=== PATIENT | male | born 1945 | race Caucasian/White ===

== ENCOUNTER → 2020-03-16 19:30 | Outpatient (ROUT) | payer MEDICARE, SELFPAY ==
[2020-03-16 19:50] LABS: Aspartate Aminotransferase 23 IU/L (17-59); BUN Creatinine Ratio 18.6 (6-22); Blood Urea Nitrogen 19 mg/dL (9-20); Carbon Dioxide 27 mmol/L (22-32); Chloride 106 mmol/L (98-107); Cholesterol 226 mg/dL (140-199); Estimated Glomerular Filt Rate > 60.0 mL/min (>60); Glucose 98 mg/dL (80-110); HDL Cholesterol 58 mg/dL (40-60); HEMOLYSIS < 15 (0-50); LDL Cholesterol Calculated 127 mg/dL (<100); Potassium 4.4 mmol/L (3.4-5.1); Sodium 138 mmol/L (137-145); Triglycerides 206 mg/dL (35-150)
[2020-03-16 20:21] LABS: Prostate Specific Antigen 5.92 ng/mL (0.10-4.00)
== END ==
PROVIDERS: Family Provider Family Medicine; PCP Family Medicine; Visit Provider Internal Medicine
DX: R03.0 Elevated blood-pressure reading, without diagnosis of hypertension (principal); E78.2 Mixed hyperlipidemia; N40.1 Benign prostatic hyperplasia with lower urinary tract symptoms
CPT/HCPCS: 80048; 80061; 84153; 84450

== ENCOUNTER → 2020-06-10 13:04 | Outpatient (CLI) | payer MEDICARE, SELFPAY ==
[2020-06-10] MEDS: COVID-19 VACC #1, MRNA(MOD) 100 MCG/0.5 ML VIAL IM (13:11)
== END ==
PROVIDERS: Visit Provider Internal Medicine
DX: Z23 Encounter for immunization (principal)
CPT/HCPCS: 0011A; 91301

== ENCOUNTER → 2020-06-21 14:46 | Outpatient (ROUT) | payer MEDICARE, SELFPAY ==
[2020-06-22 09:45] LABS: PSA, Total 4.7 ng/mL (0.0-4.0)
== END ==
PROVIDERS: Visit Provider Internal Medicine
DX: R97.20 Elevated prostate specific antigen [PSA] (principal)
CPT/HCPCS: 84153; 84154

== ENCOUNTER → 2020-07-08 13:52 | Outpatient (CLI) | payer MEDICARE, SELFPAY ==
[2020-07-08] MEDS: COVID-19 VACC #2, MRNA(MOD) 100 MCG/0.5 ML VIAL IM (14:11)
== END ==
PROVIDERS: Visit Provider Internal Medicine
DX: Z23 Encounter for immunization (principal)
CPT/HCPCS: 0012A; 91301

== ENCOUNTER → 2021-09-27 16:21 | Outpatient (CLI) | payer MEDICARE, SELFPAY ==
[2021-09-27 17:35] LABS: Hemoglobin 14.5 g/dL (13.5-17.5); Mean Corpuscular HGB Conc 34.4 % (30-36); Mean Corpuscular Hemoglobin 32.7 PG (26-34); Platelet Count 218 X10^3/uL (150-400); Red Blood Cell Count 4.42 X10^6/uL (4.5-5.9); Red Cell Distribution Width 14.1 % (11.6-14.8); White Blood Cell Count 7.3 X10^3/uL (4.5-11.0)
[2021-09-27 17:51] LABS: Alanine Aminotransferase 18 IU/L (<50); Albumin 4.3 g/dL (3.5-5.0); Albumin Globulin Ratio 1.4 (1.0-2.8); Alkaline Phosphatase 92 U/L (38-126); Aspartate Aminotransferase 27 IU/L (17-59); BUN Creatinine Ratio 16.8 (6-22); Bilirubin Total 0.9 mg/dL (0.2-1.3); Blood Urea Nitrogen 21 mg/dL (9-20); Calcium 8.8 mg/dL (8.4-10.2); Carbon Dioxide 24 mmol/L (22-32); Chloride 109 mmol/L (98-107); Cholesterol 241 mg/dL (140-199); Estimated Glomerular Filt Rate 59 mL/min (>60); Globulin 3.1 g/dL (1.7-4.1); Glucose 100 mg/dL (80-110); HDL Cholesterol 68 mg/dL (40-60); HEMOLYSIS 41 (0-50); LDL Cholesterol Calculated 129 mg/dL (<100); Potassium 4.4 mmol/L (3.4-5.1); Sodium 140 mmol/L (137-145); Total Protein 7.4 g/dL (6.3-8.2); Triglycerides 221 mg/dL (35-150)
[2021-09-27 18:21] LABS: Prostate Specific Antigen 5.45 ng/mL (0.10-4.00)
[2021-09-27 20:11] LABS: Free T4, Direct Thyroxine 0.73 ng/dL (0.78-2.19)
== END ==
PROVIDERS: PCP Internal Medicine; Referring Provider Internal Medicine; Visit Provider Internal Medicine
DX: E78.2 Mixed hyperlipidemia (principal); R97.20 Elevated prostate specific antigen [PSA]
CPT/HCPCS: 36415; 80053; 80061; 84153; 84439; 84443; 85027

== ENCOUNTER 2021-12-12 06:11 | Emergency (ER) | payer MEDICARE, SELFPAY ==
[2021-12-12 06:38] VITALS: BP 201/72; PULSE 85; RESP 18; TEMP 36.6; O2SAT 96; BMI 33.0
[2021-12-12 07:23] LABS: Appearance Urine UA CLEAR; Bilirubin Urine UA NEGATIVE (NEGATIVE); Color Urine UA RED; Glucose Urine UA NEGATIVE (Negative); Ketones Urine UA NEGATIVE (NEGATIVE); Leukocyte Esterase Urine UA 1+ (NEGATIVE); Nitrite Urine UA NEGATIVE (Negative); Occult Blood Urine UA 3+ (Negative); Protein Urine UA 2+ (Negative); Specific Gravity Urine UA 1.015 (1.000-1.035); Urobilinogen Urine UA 0.2 E.U./dL (0.2); pH Urine UA 6.5 (4.5-8.0)
[2021-12-12 07:26] LABS: Bacteria Urine None Seen; Culture Indicated Urine Specimen Cultured; RBC Urine >100/HPF (0-5/HPF); Squamous Epithelial Cell Urine None Seen (0-5/HPF); WBC Urine 1-5/HPF (0-5/HPF)
--- NOTE | 2021-12-12 08:06 | ED_ITS ---
HPI - Male Genitourinary General Chief complaint: Urogenital-Male Stated complaint: catheter has lot of blood in it Time Seen by Provider: 12/12/21 07:18 Source: patient Mode of arrival: Ambulatory History of Present Illness HPI Narrative: Is a elba 76-year-old male history of hypertension who presents today with hematuria. He was visiting in [facility] when he developed urinary retention. He had a catheter placed there 2 days ago. He was started on Cipro and Flomax the following day he flew home as scheduled today he noticed his urine was red and he had some blood. He has never had this happen before. He denies any abdominal pain. No nausea vomiting. The catheter seems to be working but he does have hematuria and a few blood clots. No fevers or chills. Related Data Home Medications Medication Instructions Recorded Confirmed latanoprost 0.005 % eye drops 1 drp OU QDAY ##0 05/21/17 (Xalatan) dorzolamide 22.3 mg-timolol 6.8 1 drp EYE-BOTH BID 09/27/21 09/27/21 mg/mL eye drops Previous Rx's Medication Instructions Recorded levothyroxine 25 mcg capsule 25 mcg PO DAILY #90 caps 09/29/21 ciprofloxacin HCl 500 mg tablet 500 mg PO BID #2 tabs 12/12/21 (Cipro) ciprofloxacin HCl 500 mg tablet 500 mg PO BID #2 tabs 12/12/21 (Cipro) tamsulosin 0.4 mg capsule (Flomax) 0.4 mg PO BEDTIME #30 caps 12/12/21 Allergies Allergy/AdvReac Type Severity Reaction Status Date / Time No Known Drug Allergies Allergy Verified 09/27/21 15:37 Review of Systems Review of Systems Narrative: GENERAL: Denies chills,fever HEENT: Denies throat pain RESPIRATORY: Denies dyspnea, cough, wheezing CARDIOVASCULAR: Denies chest pain, palpitations GASTROINTESTINAL: Denies nausea, vomiting : See HPI MUSCULOSKELETAL: Denies extremity pain, injury SKIN: No rash, no laceration, no pruritus NEUROLOGIC: Denies weakness, dizziness, headache, numbness 8 point review of systems is negative except for those stated above and HPI Patient History Medical History Advanced directives, counseling/discussion Cataracts, bilateral Glaucoma Hearing loss High prostate specific antigen (PSA) Hypothyroidism, unspecified Medicare annual wellness visit, initial Mixed hyperlipidemia Obesity (BMI 30.0-34.9) Travel advice encounter Surgical History History of cataract removal with insertion of prosthetic lens (~2018) History of vitrectomy (~2017) Family History Father Stroke Mother History of heart disease Social History Smoking Status: Never smoker Smoking Status: Never smoker alcohol intake frequency: a few times a week Substance Use Type: does not use Exam Initial Vital Signs Initial Vital Signs: Vital Signs Temperature 97.9 F 12/12/21 06:38 Pulse Rate 85 12/12/21 06:38 Respiratory Rate 18 12/12/21 06:38 Blood Pressure 201/72 H 12/12/21 06:38 Pulse Oximetry 96 12/12/21 06:38 Oxygen Delivery Method 12/12/21 06:38 GENERAL: Very pleasant well-appearing 76-year-old male CARDIOVASCULAR: peripheral pulses in tact, cap refill <2 sec RESPIRATORY: No respiratory distress, speaks in full sentences without difficulty ABDOMEN: Soft, nontender, no guarding or rebound : Magdaleno catheter in place mild hematuria a few blood clots noted no gross blood EXTREMITIES: Normal range of motion, no clubbing or edema. Neurovascularly intact NEUROLOGICAL: Cranial nerves II through XII grossly intact. Normal gait and speech. SKIN: Warm, dry, no petechiae, no rashes or lesions. Course Orders Ordered: ED Orders 12/12/21 07:14 Urinalysis and Microscopic Stat Urine Culture Stat Vital Signs Vital signs: Vital Signs - 8 hr 12/12/21 06:38 Temperature 97.9 F Pulse Rate 85 Respiratory Rate 18 Blood Pressure 201/72 H Pulse Oximetry 96 Oxygen Delivery Method Room Air MDM - Male Genitourinary Lab Data Labs: Lab Results 12/12/21 Range/Units 07:14 Urine Color Red Urine Appearance Clear Urine pH 6.5 (4.5-8.0) Ur Specific [place] 1.015 (1.000-1.035) Urine Protein 2+ H (Negative) Urine Glucose (UA) Negative (Negative) g/dL Urine Ketones Negative (NEGATIVE) Urine Occult Blood 3+ H (Negative) Urine Nitrate Negative (Negative) Urine Bilirubin Negative (NEGATIVE) Urine Urobilinogen 0.2 (0.2) E.U./dL Ur Leukocyte Esterase 1+ H (NEGATIVE) Urine RBC >100/hpf H (0-5/HPF) Urine WBC 1-5/hpf (0-5/HPF) Ur Squamous Epith Cells None seen (0-5/HPF) Urine Bacteria None seen (None) Ur Culture Indicated? Specimen cultured MDM Narrative Medical decision making narrative: Patient overall appears well. No gross blood. Currently on Cipro but was only given 5 days worth, been started on Flomax. He has an appoint with his primary care but not for a couple of weeks currently no infection at this time recommend continuing Cipro for full 7 day Discharge Plan Departure Patient Disposition: Home Clinical Impression: Hematuria, Acute urinary retention Instructions: How to Care for Your Magdaleno Catheter -- Male, DI for Hematuria Activity Restrictions/Additional Instructions: *You have been diagnosed with hematuria *What to do: At this time keep Magdaleno catheter in for about 1 week. your PCP can remove it. You will likely need to see a urologist. Monitor Magdaleno catheter for gross blood. *Continue to take medications as directed Cipro 500 mg twice a day for a total of 7 days-prescription sent for 2 more days Flomax 0.4 mg once daily *Follow up with your primary care provider in 2-3 days or call [phone] Oviedo, he may call today they may also remove her Magdaleno catheter *Return to ER if you should have gross blood Magdaleno catheter not working increased abdominal pain fever or any new, worsening or concerning symptoms Prescriptions: New ciprofloxacin HCl [Cipro] 500 mg tablet 500 mg PO BID Qty: 2 0RF tamsulosin [Flomax] 0.4 mg capsule 0.4 mg PO BEDTIME Qty: 30 0RF ciprofloxacin HCl [Cipro] 500 mg tablet 500 mg PO BID Qty: 2 0RF No Action latanoprost [Xalatan] 0.005 % drops 1 drp OU QDAY Qty: 0 levothyroxine 25 mcg capsule 25 mcg PO DAILY Qty: 90 1RF dorzolamide-timolol 22.3-6.8 mg/mL drops 1 drp EYE-BOTH BID Label Comments: INSTILL 1 DROP IN BOTH EYES TWICE DAILY Referrals: Ja Aldana MD [Primary Care Provider] - Visit Report Forms: Patient Portal/API
== END 2021-12-12 08:48 | disposition home or self-care (01) ==
PROVIDERS: Emergency Medicine; Emergency Provider Emergency Medicine; PCP Internal Medicine
DX: R31.9 Hematuria, unspecified (principal); R33.8 Other retention of urine
CPT/HCPCS: 51798; 81001; 87086; 99282; 99283

== ENCOUNTER → 2021-12-12 15:08 | Outpatient (CLI) | payer MEDICARE, SELFPAY ==
[2021-12-12 16:42] LABS: Free T3, Triiodothyronine Free 3.33 pg/mL (2.77-5.27); Free T4, Direct Thyroxine 0.95 ng/dL (0.78-2.19)
[2021-12-12 16:55] LABS: Thyroid Stimulating Hormone 18.7 uIU/mL (0.47-4.68)
[2021-12-13 07:36] LABS: Thyroid Peroxidase Antibodies 194 IU/mL (0-34)
[2021-12-13 08:17] LABS: PSA Free % 11.5 % (.); PSA, Total 4.8 ng/mL (0.0-4.0)
== END ==
PROVIDERS: PCP Internal Medicine; Referring Provider Internal Medicine; Visit Provider Internal Medicine
DX: E03.9 Hypothyroidism, unspecified (principal); R97.20 Elevated prostate specific antigen [PSA]
CPT/HCPCS: 36415; 84153; 84154; 84439; 84443; 84481; 86376

== ENCOUNTER 2021-12-15 12:01 | Observation (INO) | payer MEDICARE, SELFPAY ==
[2021-12-15] VITALS (9 sets, daily range): BP systolic 144–190; BP diastolic 73–94; PULSE 63–76; RESP 16–18; TEMP 36.1–37.1; O2SAT 97–99; BMI 32.7
--- NOTE | 2021-12-15 12:09 | DI.CT.S_ITS ---
PROCEDURE: CT STROKE INDICATIONS: left tinly/facial droop, speech. TECHNIQUE: Noncontrast 4.5 mm thick angled axial sections acquired from the foramen magnum to the vertex, with coronal reformats. For radiation dose reduction, the following was used: automated exposure control, adjustment of mA and/or kV according to patient size. COMPARISON: None. FINDINGS: Image quality: Excellent. CSF spaces: Basal cisterns are patent. No extra-axial fluid collections. The ventricles are symmetric in size and shape. Brain: No intracranial bleeds or masses. There is cerebral volume loss for age, with resultant ventricular and sulcal prominence. There are periventricular and deep white matter chronic small vessel ischemic changes. There is intracranial internal carotid artery atherosclerosis. Skull and face: Calvarium and visualized facial bones appear intact, without suspicious lesions. Sinuses: Visualized sinuses and mastoids are clear. IMPRESSION: No acute intracranial abnormality. Findings discussed with Dr. Mccrary on 12/15/2021 at 12:28 hours. This study fulfills neurological imaging criteria for inclusion or exclusion of acute stroke therapies based on available published neurological guidelines. Dictated by: Keith Dumont M.D. on 12/15/2021 at 12:27 Approved by: Keith Dumont M.D. on 12/15/2021 at 12:28
--- NOTE | 2021-12-15 12:09 | DI.CT.S_ITS ---
PROCEDURE: CT ANGIO HEAD AND NECK INDICATIONS: speech left tingly, droop. TECHNIQUE: Noncontrast images were performed earlier in the day and not repeated. After the administration of intravenous contrast, 1 mm thick sections acquired from the aortic arch through the [place]. Post-contrast 4.5 mm thick sections then re-acquired from the foramen magnum to the vertex. 3-dimensional dymazvh-ofofiqyfu-scxktkvnhk (MIP) and/or volume rendering reformats were acquired of the central intracranial vasculature and neck separately. For radiation dose reduction, the following was used: automated exposure control, adjustment of mA and/or kV according to patient size. COMPARISON: [facility], CT, CT STROKE, 12/15/2021, 12:14. FINDINGS: Image quality: Excellent. BRAIN: CSF spaces: Ventricles are normal in size and shape. Basal cisterns are patent. No extra-axial fluid collections. Brain: No midline shift. No intracranial bleeds or masses. [place]-white matter interface appears intact. Skull and face: Calvarium and facial bones appear intact, without suspicious lesions. Orbits appear normal. Sinuses: Sinuses and mastoids are clear. HEAD CT ANGIOGRAPHY: Anterior circulation: Intracranial internal carotid arteries are normal in size and flow. The flow within the paired anterior cerebral arteries is normal and symmetric. The flow within the middle cerebral arteries is normal and symmetric. The anterior communicating artery is seen. No aneurysms are seen. Posterior circulation: Note is made of bilateral type origins of the posterior cerebral arteries, with an associated diminutive basilar artery. The flow within the posterior cerebral arteries is normal and symmetric. The distal vertebral arteries are overall small in size, yet otherwise unremarkable. No aneurysms are seen. NECK CT ANGIOGRAPHY: Carotid system: The great vessels demonstrate a conventional anatomy as they arise from the aortic arch. The origins of the common carotid arteries appear patent. The common carotid arteries demonstrate normal caliber and courses. Focal calcification can be seen involving the left carotid bifurcation region. There is approximately 30% narrowing seen involving the left proximal internal carotid artery. No significant stenosis can be seen on the right. The more distal internal carotid arteries demonstrate normal course and caliber. Posterior circulation: The origins of the vertebral arteries both appear widely patent. The more superior extracranial portions of both vertebral arteries also demonstrate normal courses and calibers. They join to form a normal appearing basilar artery. Soft tissues: Visualized neck soft tissues demonstrate no suspicious abnormalities. Bones: No suspicious bony lesions. Visualized cervical spine appears normally aligned. Cervical spine degenerative changes are seen, which are worst at the C6-C7 level, with there is at least moderate disc space narrowing with associated endplate irregularity and sclerosis. Posteriorly projected endplate osteophytes are seen at this level. IMPRESSION: No significant intracranial arterial abnormality is seen. Approximately 30% narrowing seen involving the origin of the left internal carotid artery. Incidental note is made of: [id number] developmental anomalies Focal C6-C7 degenerative change Any quantitative measurements of stenosis were performed using NASCET criteria. Dictated by: Arron Pagan M.D. on 12/15/2021 at 11:41 Approved by: Arron Pagan M.D. on 12/15/2021 at 11:44
[2021-12-15 12:18] LABS: Add Manual Diff / Slide Review NO; Basophils Absolute Auto 100 /uL (0-100); Basophils Percent Auto 0.7 % (0-2); Eosinophils Absolute Auto 200 /uL (0-450); Eosinophils Percent Auto 2.9 % (2-4); Hematocrit 39.1 % (41-53); Hemoglobin 13.3 g/dL (13.5-17.5); Lymphocytes Absolute Auto 2100 /uL (1100-4500); Lymphocytes Percent Auto 27.5 % (25-40); Mean Corpuscular Hemoglobin 32.5 PG (26-34); Mean Corpuscular Volume 95.5 fL (80-100); Monocytes Absolute Auto 800 /uL (0-900); Monocytes Percent Auto 10.5 % (3-14); Neutrophils Absolute Auto 4500 /uL (1500-7000); Neutrophils Percent Auto 58.4 % (50-75); Platelet Count 256 X10^3/uL (150-400); Red Cell Distribution Width 14.7 % (11.6-14.8); White Blood Cell Count 7.7 X10^3/uL (4.5-11.0)
--- NOTE | 2021-12-15 12:27 | RT ---
Responded to Code stroke, pt on room air, no distress noted and talking with a patent airway. MD and RN at bedside.
[2021-12-15 12:28] LABS: Prothrombin Time 10.6 SECONDS (10.1-12.7)
[2021-12-15 12:30] LABS: PTT Partial Thromboplastin Tim 29 SECONDS (26.4-36.2)
[2021-12-15] MEDS: SODIUM CHLORIDE 0.9% 1,000 ML 150 ML IV (12:30)
[2021-12-15 12:34] LABS: BUN Creatinine Ratio 19.5 (6-22); Blood Urea Nitrogen 23 mg/dL (9-20); Calcium 8.7 mg/dL (8.4-10.2); Carbon Dioxide 22 mmol/L (22-32); Chloride 107 mmol/L (98-107); Creatine Kinase 43 U/L (55-170); Estimated Glomerular Filt Rate > 60 mL/min (>60); Glucose 108 mg/dL (80-110); HEMOLYSIS < 15 (0-50); Potassium 4.4 mmol/L (3.4-5.1); Sodium 136 mmol/L (137-145)
[2021-12-15 12:34] LABS: Ethanol (ETOH) < 10 mg/dL
--- NOTE | 2021-12-15 12:35 | ED.NEUROSD ---
HPI - Neuro Symptoms/Deficit General Chief Complaint: Neuro Symptoms/Deficit Stated Complaint: Left side went tingly Time Seen by Provider: 12/15/21 12:09 Mode of arrival: Family Vehicle History of Present Illness HPI Narrative: This is a 65-year-old male with history of recent urinary retention and UTI and ETOH use, and untreated hypertension and dyslipidemia.? Patient is not anticoagulated he does not take an aspirin or any other thinners. Patient presents with proximally 30-60 minutes of tingling, patient describes some mild facial droop although his does not appreciated and mild speech impairment.? Patient denies headache, no chest pain, shortness of breath, no nausea or vomiting, no other GI or urinary symptoms.? Patient is not anticoagulated does take an aspirin every other blood thinners.? He is currently on Cipro and Flomax and family and patient denies any atorvastatin or lisinopril/HCTZ.? Denies prior surgeries.? He does currently have a Magdaleno catheter with plans to have removed this coming Saturday. No tobacco, does drink alcohol daily described as 5 to 6 drinks daily he states his last drink was a week ago, no illicit.? PCP is Dr. Enriquez.?? On Anticoagulants: No Related Data Home Medications Medication Instructions Recorded Confirmed latanoprost 0.005 % eye drops 1 drp OU BEDTIME ##0 05/21/17 12/15/21 (Xalatan) dorzolamide 22.3 mg-timolol 6.8 1 drp EYE-BOTH BID 09/27/21 12/15/21 mg/mL eye drops Previous Rx's Medication Instructions Recorded levothyroxine 25 mcg capsule 25 mcg PO DAILY #90 caps 09/29/21 ciprofloxacin HCl 500 mg tablet 500 mg PO BID #2 tabs 12/12/21 (Cipro) ciprofloxacin HCl 500 mg tablet 500 mg PO BID #2 tabs 12/12/21 (Cipro) tamsulosin 0.4 mg capsule (Flomax) 0.4 mg PO BEDTIME #30 caps 12/12/21 Allergies Allergy/AdvReac Type Severity Reaction Status Date / Time No Known Drug Allergies Allergy Verified 12/15/21 12:13 Review of Systems Review of Systems ROS Unobtainable: All systems reviewed & are unremarkable except as noted in HPI and below Hematologic/Lymphatic On Anticoagulants: No Patient History Medical History Advanced directives, counseling/discussion Cataracts, bilateral Glaucoma Hearing loss High prostate specific antigen (PSA) Hypothyroidism, unspecified Medicare annual wellness visit, initial Mixed hyperlipidemia Obesity (BMI 30.0-34.9) Travel advice encounter Surgical History History of cataract removal with insertion of prosthetic lens (~2018) History of vitrectomy (~2017) Family History Father Stroke Mother History of heart disease Social History household members: spouse Smoking Status: Never smoker Smoking Status: Never smoker alcohol intake frequency: a few times a week Substance Use Type: does not use Exam Narrative Exam Narrative: GEN: well nourished, well appearing male, alert and oriented x 3, patient appears to be in mild distress. HEENT: Atraumatic, pupils are equal round reactive to light, extraocular movements are intact, nares are clear. Throat is clear without any exudates, erythema, tonsillar enlargement or uvular deviation, patient has mild left facial droop of the nasolabial fold. HEART: Regular rate and rhythm without murmur, clicks, rubs. Pulses are equal in upper and lower extremities LUNGS:Lungs clear to auscultation, no wheezes, rales, crackles, chest moves symmetrically ABD:bowel sounds normal, soft, non-tender, no guarding, rebound, rigidity, no masses noted, no hepatosplenomegaly :No CVA tenderness MSCL: Non-tender, no muscle atrophy, muscles strength 5/5 upper and lower extremities, full range of motion, gait NEURO:CN 2-12 intact, sensation normal, finger nose finger test normal, heel berrios test normal SKIN: No rash, erythema or other skin changes Initial Vital Signs Initial Vital Signs: Vital Signs Temperature 97.0 F L 12/15/21 12:09 Pulse Rate 76 12/15/21 12:09 Respiratory Rate 16 12/15/21 12:09 Blood Pressure 181/94 H 12/15/21 12:09 Pulse Oximetry 97 12/15/21 12:09 Oxygen Delivery Method 12/15/21 12:09 Scores NIH Stroke Scale Level of Conciousness: Alert, keenly responsive Ask month/age: Answers both questions correctly. Open/close eyes, close hand: Performs both tasks correctly Best gaze horizontal: Normal Visual gonzalez: No visual loss Facial palsy: Minor paralysis, flattened nasolabial fold, asymmetry on smiling Left arm drift: No drift for full 10 sec Right arm drift: No drift for full 10 sec Left leg drift: No drift for full 5 sec Right leg drift: No drift for full 5 sec Limb ataxia: Present in one limb Sensory on face/arms/legs: Mild to moderate sensory loss, can tell touch Best language: No aphasia, normal Dysarthria: Mild to mod,some slurring Extinction or inattention: No abnormality Total NIH Stroke scale score: 4 Course Orders Ordered: ED Orders 12/15/21 12:[address] angio head and neck Stat Urine Drug Screen, Rapid Stat 12/15/21 12:10 Basic Metabolic Panel Stat Complete Blood Count AUTO DIFF Stat Partial Thromboplastin Time Stat Prothrombin Time INR Stat Troponin & CK Cardiac Panel Stat 12/15/21 12:18 EKG-12 Lead Stat 12/15/21 12:21 ETOH [Ethanol (ETOH)] Stat 12/15/21 13:20 EC echo doppler complete Stat MR head/brain wo con Stat 12/15/21 13:40 COVID19 -Nasal RAPID/Pre-Proc Stat 12/15/21 13:48 Consult to Occupational Therapy Evaluate & Treat Consult to Physical Therapy Evaluate & Treat 12/16/21 05:00 Complete Blood Count AUTO DIFF DAILY Comprehensive Metabolic Panel DAILY Hemoglobin A1C% w Est Avg Glu Routine Lipid Panel Routine Magnesium DAILY TSH w/ Reflex to FT4 Routine 12/17/21 05:00 Complete Blood Count AUTO DIFF DAILY Comprehensive Metabolic Panel DAILY Magnesium DAILY 12/18/21 05:00 Complete Blood Count AUTO DIFF DAILY Comprehensive Metabolic Panel DAILY Magnesium DAILY Acetaminophen (Acetaminophen 325 Mg Tablet) 975 mg PO Q8H PRN PRN Reason: Pain, Mild (1-3) Apixaban (Apixaban 5 Mg Tablet) 5 mg PO BID CARLOS Atorvastatin Calcium (Atorvastatin 20 Mg Tablet) 40 mg PO BEDTIME [facility] Ciprofloxacin (Ciprofloxacin 250 Mg Tablet) 500 mg PO BID CARLOS Dorzolamide/Timolol (Dorzolamide/Timolol Ophth 10 Ml) 1 drops EYE-BOTH BID CARLOS Latanoprost (Latanoprost 0.005% Ophth 2.5 Ml) 1 drops EYE-BOTH BEDTIME [facility] Levothyroxine Sodium (Levothyroxine 25 Mcg Tablet) 25 mcg PO DAILY@0600 [facility] Ondansetron HCl (Ondansetron 4 Mg Odt) 4 mg PO Q8HR PRN PRN Reason: Nausea And Vomiting Tamsulosin HCl (Tamsulosin 0.4 Mg Capsule) 0.4 mg PO BEDTIME [facility] Discontinued Medications Aspirin (Aspirin 81 Mg Chew Tab) 324 mg PO NOW ONE Stop: 12/15/21 12:35 Last Admin: 12/15/21 12:58 Dose: 324 mg Documented By: AMBERLY Aspirin (Aspirin Ec 81 Mg Tablet) 81 mg PO DAILY [facility] Clopidogrel Bisulfate (Clopidogrel 75 Mg Tablet) 300 mg PO NOW ONE Stop: 12/15/21 16:28 Last Admin: 12/15/21 16:55 Dose: Not Given Documented By: EMIR Clopidogrel Bisulfate (Clopidogrel 75 Mg Tablet) 75 mg PO DAILY [facility] Enoxaparin Sodium (Enoxaparin 40 Mg/0.4 Ml Syringe) 40 mg SUBCUT DAILY [facility] Sodium Chloride (Normal Saline 0.9%) 1,000 mls @ 150 mls/hr IV CONT [facility] Last Admin: 12/15/21 12:30 Dose: 150 mls/hr Documented By: AMBERLY Labetalol HCl (Labetalol 20 Mg/4 Ml Syringe) 10 mg IV NOW ONE Stop: 12/15/21 12:35 Last Admin: 12/15/21 13:30 Dose: Not Given Documented By: AMBERLY Vital Signs Vital signs: Vital Signs - 8 hr 12/15/21 12:09 12/15/21 12:44 12/15/21 13:00 Temperature 97.0 F L Pulse Rate 76 76 Respiratory Rate 16 Blood Pressure 181/94 H 190/88 H Pulse Oximetry 97 99 Oxygen Delivery Method Room Air 12/15/21 13:00 Temperature Pulse Rate 76 Respiratory Rate Blood Pressure Pulse Oximetry 98 Oxygen Delivery Method MDM - Neuro Symptoms/Deficit Lab Data Result diagrams: 12/15/21 12:10 12/15/21 12:10 Labs: Lab Results 12/15/21 12/15/21 12/15/21 Range/Units 12:10 12:10 12:10 WBC 7.7 (4.5-11.0) X10^3/uL RBC 4.10 L (4.5-5.9) X10^6/uL Hgb 13.3 L (13.5-17.5) g/dL Hct 39.1 L (41-53) % MCV 95.5 (80-100) fL MCH 32.5 (26-34) PG MCHC 34.0 (30-36) % RDW 14.7 (11.6-14.8) % Plt Count 256 (150-400) X10^3/uL Neut % (Auto) 58.4 (50-75) % Lymph % (Auto) 27.5 (25-40) % Emmons % (Auto) 10.5 (3-14) % Eos % (Auto) 2.9 (2-4) % Baso % (Auto) 0.7 (0-2) % Neut # (Auto) 4500 (7772-5564) /uL Lymph # (Auto) 2100 (1749-9298) /uL Emmons # (Auto) 800 (0-900) /uL Eos # (Auto) 200 (0-450) /uL Baso # (Auto) 100 (0-100) /uL PT 10.6 (10.1-12.7) SECONDS INR 1.0 (0.9-1.3) APTT 29 (26.4-36.2) SECONDS Sodium 136 L (137-145) mmol/L Potassium 4.4 (3.4-5.1) mmol/L Chloride 107 (98-107) mmol/L Carbon Dioxide 22 (22-32) mmol/L BUN 23 H (9-20) mg/dL Creatinine 1.18 (0.66-1.25) mg/dL Estimated GFR > 60 (>60) mL/min BUN/Creatinine Ratio 19.5 (6-22) Glucose 108 (80-110) mg/dL Calcium 8.7 (8.4-10.2) mg/dL Total Creatine Kinase 43 L (55-170) U/L CK-MB (CK-2) TNP CK-MB (CK-2) Rel Index TNP Troponin I < 0.012 (0.01-0.034) ng/mL Ethyl Alcohol ( - 10) mg/dL 12/15/21 Range/Units 12:21 WBC (4.5-11.0) X10^3/uL RBC (4.5-5.9) X10^6/uL Hgb (13.5-17.5) g/dL Hct (41-53) % MCV (80-100) fL MCH (26-34) PG MCHC (30-36) % RDW (11.6-14.8) % Plt Count (150-400) X10^3/uL Neut % (Auto) (50-75) % Lymph % (Auto) (25-40) % Emmons % (Auto) (3-14) % Eos % (Auto) (2-4) % Baso % (Auto) (0-2) % Neut # (Auto) (7259-5137) /uL Lymph # (Auto) (0857-0932) /uL Emmons # (Auto) (0-900) /uL Eos # (Auto) (0-450) /uL Baso # (Auto) (0-100) /uL PT (10.1-12.7) SECONDS INR (0.9-1.3) APTT (26.4-36.2) SECONDS Sodium (137-145) mmol/L Potassium (3.4-5.1) mmol/L Chloride (98-107) mmol/L Carbon Dioxide (22-32) mmol/L BUN (9-20) mg/dL Creatinine (0.66-1.25) mg/dL Estimated GFR (>60) mL/min BUN/Creatinine Ratio (6-22) Glucose (80-110) mg/dL Calcium (8.4-10.2) mg/dL Total Creatine Kinase (55-170) U/L CK-MB (CK-2) CK-MB (CK-2) Rel Index Troponin I (0.01-0.034) ng/mL Ethyl Alcohol < 10 ( - 10) mg/dL Imaging Data CT scan - head: Radiologist's Impression: Close Head/Neck CTA 12/15/[address] (Signed) Keith Dumont - 12/15/21 Launch?[address] [address] [address] Scan Report Signed Patient: Keith Almendarez MR#: [id number] : 1945 Acct:[id number] Age/Sex: 76 / M Date of Service: 12/15/21 Loc: ED Accession Number: [id number] ?? Procedure: CT Stroke Ordering Provider: Christina Leon D.O. PROCEDURE:? CT STROKE ? INDICATIONS:? left tinly/facial droop, speech. ? TECHNIQUE:? Noncontrast 4.5 mm thick angled axial sections acquired from the foramen magnum to the vertex, with coronal reformats.? For radiation dose reduction, the following was used:? automated exposure control, adjustment of mA and/or kV according to patient size.? ? COMPARISON:? None. ? FINDINGS:? Image quality:? Excellent.? ? CSF spaces:? Basal cisterns are patent.? No extra-axial fluid collections.? The ventricles are symmetric in size and shape.? ? Brain:? No intracranial bleeds or masses.? There is cerebral volume loss for age, with resultant ventricular and sulcal prominence.? There are periventricular and deep white matter chronic small vessel ischemic changes.? There is intracranial internal carotid artery atherosclerosis.? ? Skull and face:? Calvarium and visualized facial bones appear intact, without suspicious lesions.? ? Sinuses:? Visualized sinuses and mastoids are clear.? ? IMPRESSION:? No acute intracranial abnormality.? Findings discussed with Dr. Mccrary on 12/15/2021 at 12:28 hours. ? This study fulfills neurological imaging criteria for inclusion or exclusion of acute stroke therapies based on available published neurological guidelines.? ? ? Dictated by: Keith Dumont M.D. on 12/15/2021 at 12:27 ? ? Approved by: Keith Dumont M.D. on 12/15/2021 at 12:28? ECG Data Attestation: I personally reviewed and interpreted this ECG as follows: Prior ECG tracings: not available for review Interpretation: Sinus rhythm, rate of 76 p.r. 150 QRS of 90 QTC [address] No acute [address] changes noted. Patient does not have any priors. She does have some PACs. T-wave inverted in 3 no other acute changes. MDM Narrative Medical decision making narrative: This is a 76-year-old male who presents with sudden onset of facial droop, numbness and tingling and weakness of his left side. Patient is within the window for tPA, he was hypertensive, head CT is negative, no other acute cause was found for his symptoms. CT was found no significant stenosis but does have some 30% of the ICA. I spoke with Dr. Sade Golden from [facility]. She agrees that patient is candidate he is unsure if he wanted to do tPA and she recommends if he is 3 or less often they will offer aspirin over tPA with an NIH of 4 would be offered reviewed risks versus benefits and is happy to talk with the patient if he would like to do so. Reviewed all of this information with the patient he states that his current level of symptoms he would be able to tolerate if these were permanent. He feels like it has significantly improved from when he was at home. Does not wish to do tPA today after discussion versus risk benefit and defers talking with Neurology as well. He is initially reluctant to stay for observation overnight but after further discussion seems willing. Critical Care Time Critical Care Time Critical Care Time: Yes Total Critical Care Time: 35 Attestation: The high probability of a clinically significant, sudden or life threatening deterioration of the [neuro, cardiac] system(s) required my full and direct attention, intervention and personal management. The aggregate critical care time was [] minutes. This time is in addition to time spent performing reported procedures but includes the following: [x] Data Review and interpretation [x] Patient assessment and monitoring of vital signs [x] Documentation [x] Medication orders and management Discharge Plan Departure Patient Disposition: Admitted as Observation Clinical Impression: Acute CVA (cerebrovascular accident) Admit Date/Time: 12/15/21 13:21 Admit Provider: Boni Guzmán
[2021-12-15 12:48] LABS: Troponin I < 0.012 ng/mL (0.01-0.034)
[2021-12-15] MEDS: ASPIRIN 81 MG CHEW TAB 324 MG PO (12:58)
--- NOTE | 2021-12-15 13:20 | DI.ECHO.S_ITS ---
[facility] +---------+ : : [address] [place] : : : : [id number] : : : : Phone: [phone]+ Echocardiogram Report + + :Name: ARJUN ALEXIS Study Date: 12/15/2021 Height: 70 in : :[facility] ReadingLocation: Weight: 228 lb : : Gender: Male BSA: 2.2 m2 : :: 1945 Age: 76 yrs BP: 161/81 mmHg: :Reason For Study: CVA : :Ordering Physician: RODNEY, : :BRIDGER MARTINEZ Performed By: Jose Gibbs : :Referring: BRIDGER STEVENS : + + Interpretation Summary 1) Normal left ventricular thickness, size, wall motion, and systolic function (EF 55-60%). 2) Normal right ventricular size and function. 3) No significant valvular abnormalities. 4) A patent foramen ovale is present. Doppler evidence suggests a left to right interatrial shunt. 5) No prior Echo available for comparison. Procedure: A two-dimensional transthoracic echocardiogram with color flow and Doppler was performed. The study quality was technically adequate. There is no prior echocardiogram noted for this patient. Left Ventricle: The left ventricle is normal in size and wall thickness. Left ventricular systolic function is normal. The ejection fraction is estimated to be 55-60%. There are no focal wall motion abnormalities. Diastolic parameters suggest probable normal left ventricular diastolic function and normal filling pressures. Right Ventricle: The right ventricle is normal in size and function. Atria: Both atria are normal in size. Doppler evidence suggests a left to right interatrial shunt. A patent foramen ovale is present. Mitral Valve: The mitral valve is normal in structure and function. There is trace mitral regurgitation. Aortic Valve: The aortic valve is normal in structure and function. No aortic regurgitation is present. Tricuspid Valve: The tricuspid valve is normal in structure and function. No tricuspid regurgitation. Pulmonary artery pressures cannot be estimated because of the lack of a measurable TR jet velocity. Pulmonic Valve: The pulmonic valve is normal in structure and function. There is no pulmonic valvular regurgitation. Great Vessels: The aortic root is normal size. The dimensions of the ascending aorta are normal. The IVC is dilated (diameter is greater than 2.1 cm) yet it collapses greater than 50% with a sniff. This suggests a right atrial pressure of 8 mm Hg. Pericardium/ Pleura There is no pericardial effusion. There is no pleural effusion. MMode/2D Measurements & Calculations LVIDd: 5.6 cm LVOT diam: 2.3 cm LVIDs: 3.6 cm Ao root diam: 3.5 cm FS: 35.2 % asc Aorta Diam: 3.4 cm IVSd: 0.75 cm LVPWd: 0.73 cm LV carpio. diameter/BSA (cm/m^2): 2.5 LV sys. diameter/BSA (cm/m^2): 1.6 LA A2 area: 21.4 cm2 RA long axis: 5.2 cm LA A4 area: 17.3 cm2 RA area: 15.0 cm2 LA length (vol): 5.3 cm RA vol: 36.9 ml LA vol: 59.4 ml RA : 16.7 ml/m2 LA vol index: 26.9 ml/m2 IVC diam: 2.2 cm TAPSE: 2.8 cm Doppler Measurements & Calculations Ao V2 max: 128.0 cm/sec LVOT Max Jeffrey: 107.2 cm/sec Ao V2 mean: 89.4 cm/sec LV V1 max P.6 mmHg Ao max P.6 mmHg LV V1 VTI: 22.2 cm Ao mean P.5 mmHg TIFFANIE(I,D): 3.2 cm2 Ao V2 VTI: 29.8 cm TIFFANIE(V,D): 3.6 cm2 sev ratio: 0.75 TIFFANIE indexed to BSA (cm^2/m^2): 1.4 MV E max jeffrey: 72.0 cm/sec SV(LVOT): 94.4 ml MV A max jeffrey: 83.6 cm/sec MV E/A: 0.86 Med Peak E' Jeffrey: 7.7 cm/sec E/E' med: 9.3 Lat Peak E' Jeffrey: 12.3 cm/sec E/E' lat: 5.8 E/e' average: 7.6 MV dec time: 0.24 sec Reading Physician:05:04 PM
--- NOTE | 2021-12-15 13:20 | DI.MRI.S_ITS ---
PROCEDURE: MR HEAD/BRAIN WO CON INDICATIONS: L weakness, numbness, CVA TECHNIQUE: Non-contrast axial T1 spin echo, axial T2 fast spin echo, sagittal and axial FLAIR, coronal T2 fast spin echo, axial gradient echo, axial diffusion and ADC through the brain. COMPARISON: [facility], CT, CT ANGIO HEAD AND NECK, 12/15/2021, 12:14. [facility], CT, CT STROKE, 12/15/2021, 12:14. FINDINGS: Image quality: Excellent. CSF spaces: Ventricles appear symmetric in size and shape. Basal cisterns are patent. No extra-axial fluid collections. Brain: No intracranial bleeds or mass effects. There is mild cerebral volume loss for age. There are mild periventricular and deep white matter chronic small vessel ischemic changes. Brainstem appears normal. Diffusion-weighted images show no acute ischemic insults. No chronic ischemic insults. Normal intravascular flow voids are present. Skull and face: Calvarial bone marrow is normal in signal. Orbits are normal. Sinuses: Left maxillary sinus mucosal thickening. Mastoids are clear. IMPRESSION: 1. No acute intracranial abnormalities. 2. Mild cerebral volume loss and chronic microvascular ischemic changes. 3. Left maxillary sinus mucosal thickening. Dictated by: Robert Horn M.D. on 12/15/2021 at 16:09 Approved by: Robert Horn M.D. on 12/15/2021 at 16:12
[2021-12-15 14:38] LABS: COVID19 -Nasal RAPID Negative (Negative)
--- NOTE | 2021-12-15 15:15 | OT.IPNOTE ---
Pt to get MRI soon per nurse, therefore to check on pt later.
--- NOTE | 2021-12-15 16:04 | OT.IPNOTE ---
Pt not available as hospitalist in the room with the pt, to check on the pt tomorrow for OT eval.
--- NOTE | 2021-12-15 16:13 | P.HP_ITS ---
History of Present Illness History of Present Illness Date Patient Seen: 12/15/21 Time Patient Seen: 16:13 Chief complaint: Left side went tingly Narrative: This is a 76-year-old male with a past medical history of glaucoma, BPH, and obesity who presented to the emergency room with left-sided numbness, slight weakness, and facial numbness that started at 11:30 a.m. this morning. He denied any slurred speech or falls. He had no right-sided symptoms and denied any headache, chest pain, palpitations, recent fever or chills, abdominal pain, nausea, vomiting, lower extremity edema, orthopnea. Patient quickly went to the emergency room with the symptoms, and was found to have an NIH of 4 on exam. Consultation was performed with tele stroke, but the patient had improving symptoms and opted against tPA administration after discussion with tele neurology and the ER provider. In the emergency room, he was mildly hypertensive, but the remainder of his vital signs were unremarkable. Initial laboratory evaluation was unremarkable including CBC, chemistries, and coagulation studies. Troponin testing was normal, alcohol level was undetectable, and COVID-19 testing was negative. Initial head CT showed no at the hemorrhage in CT angiogram showed only mild clinically insignificant stenosis. He was admitted for an acute stroke. During my evaluation the patient's symptoms had reportedly resolved and he had no complaints. Patient History Medical History Advanced directives, counseling/discussion Cataracts, bilateral Glaucoma Hearing loss High prostate specific antigen (PSA) Hypothyroidism, unspecified Medicare annual wellness visit, initial Mixed hyperlipidemia Obesity (BMI 30.0-34.9) Travel advice encounter Surgical History History of cataract removal with insertion of prosthetic lens (~2018) History of vitrectomy (~2017) Family & Social History Family History Father Stroke Mother History of heart disease Social History: household members spouse Prior Living Arrangements House Safety & Behavioral: Feels Safe in Current Yes Environment Been Physically Hurt or No Threatened By a Person Tobacco & Substance use: Smoking Status Never smoker alcohol intake frequency a few times a week Substance Use Type does not use Meds Home Medications and Allergies Home Medications Medication Instructions Recorded Confirmed Type latanoprost 0.005 % eye drops 1 drp OU BEDTIME ##0 05/21/17 12/15/21 History (Xalatan) dorzolamide 22.3 mg-timolol 6.8 1 drp EYE-BOTH BID 09/27/21 12/15/21 History mg/mL eye drops levothyroxine 25 mcg capsule 25 mcg PO DAILY #90 caps 09/29/21 12/15/21 Rx ciprofloxacin HCl 500 mg tablet 500 mg PO BID #2 tabs 12/12/21 12/15/21 Rx (Cipro) ciprofloxacin HCl 500 mg tablet 500 mg PO BID #2 tabs 12/12/21 12/15/21 Rx (Cipro) tamsulosin 0.4 mg capsule (Flomax) 0.4 mg PO BEDTIME #30 caps 12/12/21 12/15/21 Rx Allergies Allergy/AdvReac Type Severity Reaction Status Date / Time No Known Drug Allergies Allergy Verified 12/15/21 12:13 Review of Systems Review of Systems Narrative: All other systems reviewed with the patient and are negative unless otherwise stated. Exam Vital Signs (past 8 hours): - 12/15/21 12:09 12/15/21 12:44 12/15/21 13:00 Temperature 97.0 F L Pulse Rate 76 76 Respiratory Rate 16 Blood Pressure 181/94 H 190/88 H Pulse Oximetry 97 99 Oxygen Delivery Method Room Air Oxygen Flow Rate 12/15/21 13:00 12/15/21 13:30 12/15/21 13:31 Temperature Pulse Rate 76 67 70 Respiratory Rate Blood Pressure Pulse Oximetry 98 98 98 Oxygen Delivery Method Oxygen Flow Rate 12/15/21 13:31 12/15/21 13:59 12/15/21 13:59 Temperature 98.7 F Pulse Rate 69 Respiratory Rate 18 Blood Pressure 160/79 H 161/81 H Pulse Oximetry 99 99 Oxygen Delivery Method Room Air Oxygen Flow Rate 0 0 Oxygen Delivery Method Room Air Oxygen Flow Rate 0 Narrative Exam Narrative: General:? Patient is well developed and well nourished, in no distress at this time. HEENT:? Normocephalic, atraumatic, extraocular muscles intact, oral pharynx is clear and mucous membranes are moist. Neck: supple and symmetric, trachea is midline, no cervical adenopathy. Negative for JVD Chest:? Normal AP diameter and contour without kyphoscoliosis, no tachypnea, equal chest rise bilaterally. Lungs:? CTA b/l no wheezing rhonchi or rales. Cardio:?RRR no m/r/g. Abdomen: S NT ND. No CVA tenderness. Musculoskeletal:? Muscle strength and tone are equal within normal limits, no deformity. Extremities: No edema or joint effusions. No cyanosis or clubbing. Skin:? Pale,? Warm to touch,dry and intact without rashes, ulcerations or petechiae.? Neuro:? Alert and orientated x3,? sensation to touch intact in all extremities and face. Heel to berrios testing unremarkable, mild L facial asymmetry. Strength +5/5 and equal bilaterally. Psych:? Patient has a well-kept appearance, appropriate affect, mental status attitude thought context and judgment are appropriate for age. Objective Labs Result Diagrams: 12/15/21 12:10 12/15/21 12:10 Labs: Laboratory Results - last 24 hr 12/15/21 12/15/21 12/15/21 12:10 12:10 12:10 WBC 7.7 RBC 4.10 L Hgb 13.3 L Hct 39.1 L MCV 95.5 MCH 32.5 MCHC 34.0 RDW 14.7 Plt Count 256 Neut % (Auto) 58.4 Lymph % (Auto) 27.5 Lawrence % (Auto) 10.5 Eos % (Auto) 2.9 Baso % (Auto) 0.7 Neut # (Auto) 4500 Lymph # (Auto) 2100 Lawrence # (Auto) 800 Eos # (Auto) 200 Baso # (Auto) 100 PT 10.6 INR 1.0 APTT 29 Sodium 136 L Potassium 4.4 Chloride 107 Carbon Dioxide 22 BUN 23 H Creatinine 1.18 Estimated GFR > 60 BUN/Creatinine Ratio 19.5 Glucose 108 Calcium 8.7 Total Creatine Kinase 43 L CK-MB (CK-2) TNP CK-MB (CK-2) Rel Index TNP Troponin I < 0.012 Ethyl Alcohol SARS-CoV-2 (PCR) 12/15/21 12/15/21 12:21 13:40 WBC RBC Hgb Hct MCV MCH MCHC RDW Plt Count Neut % (Auto) Lymph % (Auto) Lawrence % (Auto) Eos % (Auto) Baso % (Auto) Neut # (Auto) Lymph # (Auto) Lawrence # (Auto) Eos # (Auto) Baso # (Auto) PT INR APTT Sodium Potassium Chloride Carbon Dioxide BUN Creatinine Estimated GFR BUN/Creatinine Ratio Glucose Calcium Total Creatine Kinase CK-MB (CK-2) CK-MB (CK-2) Rel Index Troponin I Ethyl Alcohol < 10 SARS-CoV-2 (PCR) Negative Assessment & Plan Assessment & Plan narrative: This is a 76-year-old male with a past medical history of glaucoma, BPH, and obesity who presented to the emergency room with left-sided numbness, slight weakness, and facial numbness that started at 11:30 a.m. this morning. He is admitted with TIA vs CVA as symptoms have resolved at the time of arrival to the hospital floor. 1. Left sided weakness and numbness, TIA or possible CVA. - CT imaging unremarkable, mild carotid stenosis at 30% - TSH, A1c, and lipid testing in the morning - continue telemetry - no PT/OT at this time given resolution of symptoms. - NIH monitoring. - TTE and MRI ordered. - shortly after arrival to the floor, patient developed atrial fibrillation with controlled rate on telemetry. Start DOAC if negative MRI, wait 48 hours if positive. 2. BPH with obstruction - s/p recent obstruction with emery placement in [facility]. Seen in the ER a few days ago with blood which has since resolved. - continue home flomax and leg bag. - follow up with primary care provider as previously scheduled on Saturday. 3. obesity - places patient at increased risk of morbidity and mortailty from his CVA. 4. New diagnosis atrial fibrillation - currently rate controlled, consider beta ubaldo therapy if needed. - will start apixaban as discussed above. Code: Full, surrogate is his spouse DVT: lovenox daily Dispo: admitted under observation status I have utilized all available immediate resources to obtain, update, or review the patient's current medications. Time Spent With Patient Critical Care time: I spent a total of [] minutes of critical care time on this patient's care today; this time is exclusive of procedural time. Quality VTE Deep Vein Thrombosis/Pulmonary Embolism Present on Admission: No MIPS - Admit I confirm the patient?s Advance Care Plan is present, Code status is documented, Surrogate decision maker is in patient?s record [If Yes, STOP here]: Yes
--- NOTE | 2021-12-15 16:38 | PT-IP ANOTE ---
checked on pt x 2 but pt going to have MRI done and then 2nd attempt, has satellite installation technician doing another procedure. will f/u tomorrow.
--- NOTE | 2021-12-15 18:04 | DI.US.S_ITS ---
PROCEDURE: US PERIPH VENOUS LOW EXTREM BI INDICATIONS: CVA with PFO on echo, r/o DVT TECHNIQUE: Real-time imaging, as well as color and pulse Doppler interrogation, were performed of the deep veins of both legs from the inguinal ligament to the popliteal fossa. COMPARISON: None. FINDINGS: Right: The common femoral, femoral and popliteal veins are normally compressible, and free of intraluminal thrombus. Color and pulse Doppler demonstrate normal phasic intravascular flow. There is normal augmentation response to distal compression maneuver. Left: The common femoral, femoral and popliteal veins are normally compressible, and free of intraluminal thrombus. Color and pulse Doppler demonstrate normal phasic intravascular flow. There is normal augmentation response to distal compression maneuver. IMPRESSION: Negative for deep venous thrombosis involving either lower extremity. Dictated by: Arron Pagan M.D. on 12/15/2021 at 17:55 Approved by: Arron Pagan M.D. on 12/15/2021 at 17:56
[2021-12-15] MEDS: TAMSULOSIN 0.4 MG CAPSULE PO (20:45)
[2021-12-15] MEDS: CIPROFLOXACIN 250 MG TABLET 500 MG PO (20:45)
[2021-12-15] MEDS: APIXABAN 5 MG TABLET PO (20:45)
[2021-12-15] MEDS: ATORVASTATIN 20 MG TABLET 40 MG PO (20:45)
[2021-12-15] MEDS: LATANOPROST 0.005% OPHTH 2.5 ML 1 DROPS EYE-BOTH (20:46)
[2021-12-15] MEDS: DORZOLAMIDE/TIMOLOL OPHTH 10 ML 1 DROPS EYE-BOTH (20:46)
[2021-12-15 21:58] LABS: Ur Creatinine 20 (Normal); Ur Specific Gravity 1.025 (Normal); Urine pH 5 (Normal)
[2021-12-15 21:59] LABS: UR Morphine/Opiate cutoff 300 Negative (Negative); Urine Amphetamines Negative (Negative); Urine Barbiturates Negative (Negative); Urine Benzodiazepines Negative (Negative); Urine Cocaine Negative (Negative); Urine MDMA Negative (Negative); Urine Methadone Negative (Negative); Urine Methamphetamines Negative (Negative); Urine Oxycodone Negative (Negative); Urine Phencyclidine Negative (Negative); Urine Tetrahydrocannabinol Negative (Negative); Urine Tricyclic Antidepressant Negative (Negative)
[2021-12-16 05:00] VITALS: O2SAT 100
[2021-12-16 05:35] VITALS: BP 130/86; PULSE 71; RESP 18; TEMP 37.2; O2SAT 100
[2021-12-16] MEDS: LEVOTHYROXINE 25 MCG TABLET PO (06:47)
[2021-12-16 07:10] LABS: Alanine Aminotransferase 28 IU/L (<50); Albumin 3.9 g/dL (3.5-5.0); Albumin Globulin Ratio 1.2 (1.0-2.8); Alkaline Phosphatase 92 U/L (38-126); Aspartate Aminotransferase 33 IU/L (17-59); BUN Creatinine Ratio 16.7 (6-22); Blood Urea Nitrogen 17 mg/dL (9-20); Calcium 8.7 mg/dL (8.4-10.2); Carbon Dioxide 19 mmol/L (22-32); Chloride 110 mmol/L (98-107); Cholesterol 206 mg/dL (140-199); Estimated Glomerular Filt Rate > 60 mL/min (>60); Globulin 3.2 g/dL (1.7-4.1); Glucose 122 mg/dL (80-110); HDL Cholesterol 48 mg/dL (40-60); HEMOLYSIS < 15 (0-50); LDL Cholesterol Calculated 130 mg/dL (<100); Magnesium 2.1 mg/dL (1.6-2.3); Potassium 4.4 mmol/L (3.4-5.1); Sodium 137 mmol/L (137-145); Total Protein 7.1 g/dL (6.3-8.2); Triglycerides 139 mg/dL (35-150)
[2021-12-16 07:19] LABS: Add Manual Diff / Slide Review NO; Basophils Absolute Auto 0 /uL (0-100); Basophils Percent Auto 0.6 % (0-2); Eosinophils Absolute Auto 200 /uL (0-450); Eosinophils Percent Auto 2.6 % (2-4); Hematocrit 39.4 % (41-53); Hemoglobin 13.5 g/dL (13.5-17.5); Lymphocytes Absolute Auto 1400 /uL (1100-4500); Lymphocytes Percent Auto 20.3 % (25-40); Mean Corpuscular HGB Conc 34.4 % (30-36); Mean Corpuscular Hemoglobin 32.8 PG (26-34); Mean Corpuscular Volume 95.3 fL (80-100); Monocytes Absolute Auto 500 /uL (0-900); Monocytes Percent Auto 6.6 % (3-14); Neutrophils Absolute Auto 5000 /uL (1500-7000); Neutrophils Percent Auto 69.9 % (50-75); Platelet Count 264 X10^3/uL (150-400); Red Blood Cell Count 4.13 X10^6/uL (4.5-5.9); Red Cell Distribution Width 14.8 % (11.6-14.8); White Blood Cell Count 7.1 X10^3/uL (4.5-11.0)
[2021-12-16 07:47] LABS: Hemoglobin A1C% w Est Avg Glu 5.6 % (4.0-6.0)
[2021-12-16 08:22] LABS: Free T4, Direct Thyroxine 0.91 ng/dL (0.78-2.19)
[2021-12-16] MEDS: CIPROFLOXACIN 250 MG TABLET 500 MG PO (08:41)
[2021-12-16] MEDS: APIXABAN 5 MG TABLET PO (08:43)
[2021-12-16] MEDS: DORZOLAMIDE/TIMOLOL OPHTH 10 ML 1 DROPS EYE-BOTH (08:46)
[2021-12-16 08:51] VITALS: BP 155/75; PULSE 85; RESP 17; TEMP 36.4; O2SAT 95
[2021-12-16 09:00] VITALS: O2SAT 95
--- NOTE | 2021-12-16 09:04 | OT.IP.EVAL ---
Past Medical History (Last Reviewed 12/15/21 @ 16:21 by Boni Guzmán DO) Advanced directives, counseling/discussion Cataracts, bilateral Glaucoma Hearing loss High prostate specific antigen (PSA) Hypothyroidism, unspecified Medicare annual wellness visit, initial Mixed hyperlipidemia Obesity (BMI 30.0-34.9) Travel advice encounter Surgical History (Last Reviewed 12/15/21 @ 16:21 by Boni Guzmán DO) History of cataract removal with insertion of prosthetic lens (~2018) History of vitrectomy (~2017) Occupational Therapy Inpatient Evaluation/Re-Eval M1 PT/OT-IP Prior Functional Status Start: 12/16/21 09:07 Freq: NEEDED Status: Active Protocol: Document 12/16/21 09:08 [facility] (Rec: 12/16/21 09:29 [facility] [id number]) Medical Review Prior Functional Status Communication independent Mobility and Gait Pt states independent and did not use any devices to walk with. Activities of Daily Living and IADL's Completely independent with ADL,IADL, and drives. Social History Household Members spouse Living Arrangements House Number of Floors (Floors) 3 or More Floors Number of Stairs To Enter/Railing? Pt has no steps to the main level and above to stay on that level. Home Environment Standard Height Toilet,Walk in Shower M2 OT-IP Current Condition Start: 12/16/21 09:07 Freq: Status: Active Protocol: Document 12/16/21 09:08 [facility] (Rec: 12/16/21 09:29 [facility] [id number]) Occupational Therapy Current Condition Current Condition Evaluation Date 12/16/21 Treatment Diagnosis Left numbness,TIA Diagnosis Onset Date 12/15/21 M3 OT- IP Subjective and Pain Start: 12/16/21 09:07 Freq: Status: Active Protocol: Document 12/16/21 09:08 [facility] (Rec: 12/16/21 09:29 [facility] [id number]) OT- Subjective Occupational Therapy Visit Type Type Initial Evaluation Visit Start Time 08:50 Visit Stop Time 09:04 Total Visit Minutes 14 Occupational Therapy Visit Comments Patient Comments Pt agreed to get up with OT. Patient/Caregiver Goals TO go home OT Pain Assessment Pain When Pain Assessed At Rest Pain Present Pain Present Denied Pain M4 OT- IP ADL's Start: 12/16/21 09:07 Freq: Status: Active Protocol: Document 12/16/21 09:08 [facility] (Rec: 12/16/21 09:29 [facility] [id number]) OT [id number] Comments OT Self-Feeding Comments Not at meal time. OT ADL-Grooming Comments OT Grooming Comments Pt states not wanting to do. OT ADL-Oral Care Comments Oral Care Comments Pt refused. OT ADL-Dressing General Eval Lower Body Dressing Ability Independent M6 OT- IP Functional Cognition Start: 12/16/21 09:07 Freq: Status: Active Protocol: Document 12/16/21 09:08 [facility] (Rec: 12/16/21 09:29 [facility] [id number]) Cognitive Factors Limiting Selfcare Function Cognitive Ability Level of Alertness Alert Patient Orientation Name,Age,Birthday,Month,Date, Year,Day of Week,Place, Situation Attention Span Ability Capable of Focused Attention, Capable of Sustained Attention Ability to Follow Commands Able to Follow Multi-Step Commands Cognitive Comments Cognitive Assessment Comments Pt a bit impulsive and hurrying when walking in the room and had loss of balance resulting in the needs for CGA but able to regain his balance. Pt states, I was just trying to show off. Pt scored 98 seconds on [place] Making Part B which implies mild impairments for visual attention, task switching, executive functioning, speed of processing, and mental flexibility. Pt score is 60% for his age group. Suggested pt let his drive initially until feeling better . OT- Vision and Hearing OT- Hearing Assessment OT- Hearing Assessment WFL OT- Vision Assessment Visual Acuity Glasses For Reading Visual Attentiveness WFL Occular Pursuits WFL Visual Convergence WFL Visual [place] WFL Diplopia Absent M7 OT- IP Mobility and Balance Start: 12/16/21 09:07 Freq: Status: Active Protocol: Document 12/16/21 09:08 [facility] (Rec: 12/16/21 09:29 [facility] [id number]) OT- Bed Mobility Assessment Supine to Sit Supine to Sit Assist Independent Sit to Supine Sit to Supine Assist Independent OT-Transfer Assessment Sit to and From Stand Sit to and from Stand Independent Transfers Transfer Ability Independent,Standby Assistance Comments Mobility Comments Pt able to walk in the room and having loss of balance as hurrying , and needing cues to slow down. OT- Gait Assessment Comments Gait Ability Comments vc to slow down OT- Balance Assessment Sitting Balance and Reactions Static Sitting Balance Ability Normal Dynamic Sitting Balance Ability Normal Standing Balance and Reactions Static Standing Balance Ability Normal Dynamic Standing Balance Ability Fair M8 OT- IP Objective Assessments Start: 12/16/21 09:07 Freq: Status: Active Protocol: Document 12/16/21 09:08 [facility] (Rec: 12/16/21 09:29 [facility] [id number]) OT Gross Range of Motion Upper Extremity Range of Motion Assessment Within Functional Limits OT Strength Upper Extremity Strength Assessment Within Functional Limits Comments Strength Comments BUE 4+/5 throughout OT- Coordination Assessment Upper Extremity Finger to Nose Test Within Functional Limits Finger Tapping Test Within Functional Limits OT-Muscle Tone Assessment Muscle Tone WNL Yes OT Sensation Assessment Comments Summary Comments Intact M9 OT- IP Assessment and Plan Start: 12/16/21 09:07 Freq: Status: Active Protocol: Document 12/16/21 09:08 [facility] (Rec: 12/16/21 09:29 [facility] [id number]) OT Summary Assessment and Plan Potential Rehabilitation Potential Good Analytic Complexity at Evaluation Low Summary OT Impairments Functional Mobility,Bathing Progress Towards Goals Progressing Toward Goals Assessment Summary Pt here due to left numbness and weakness and pt states has resolved. Pt scored 98seconds on [place] Making Part B which implies mild impairments for visual attention, speed of processing, executive functioning, mental flexibilty , and task switching. Pt states will not drive initially. Pt feels that he is back to normal. Pt looking to go home today. Goals Shower Transfer Goal Independent Days to Meet Goals 1 Frequency of Treatment Frequency Of Treatment Once a Day Treatment Plan OT Treatment Plan Functional Mobility Other Treatment Recommendations and Next showre if still here Treatment Focus Discharge Recommendations OT Discharge Recommendations Home with Assistance Transportation Needs at Discharge Private Vehicle
--- NOTE | 2021-12-16 09:28 | CM.DANOTE ---
DCP Assessment: Payor: Medicare PCP: MD Katya Pt presented to the ED with tingling and describes some mild facial droop. Pt has a recent history of urinary retention, UTI, and ETOH use. Pt also has untreated hypertension and dyslipidemia. Head CT was negative and no other acute cause was found for his symptoms. tPA was offered but pt declined. Pt also declined talking to neurology. Pt was hesitant for a stay overnight but was later agreeable. Pt admitted to the floor for observation and further evaluation of his symptoms. DCP met with pt this morning to discuss discharge needs. Pt sitting up in bed. DCP introduced herself and role. Pt states that he lives in a three story house in [place] with his spouse, Sadnra. Pt states that he is independent at baseline and still drives POV. Pt denies any DME use. Pt denies any resources at this time. Pt wanting to go home today. Pt states that he understands that he had a mini stroke but all other tests came back normal. White board was updated and instructed to call. Pt states that he is good on resources, but thankful for discussion. Pt spouse will transport pt once medically stable for discharge. P: Once pt is deemed medically stable, pt will discharge home via spouse POV. Tatianna Foreman RN/DEMETRIUS Discharge Planning/Care Management Advanced directive, confirm from FAMILY Start: 12/15/21 14:13 Freq: Q24H Status: Active Protocol: Document 12/15/21 14:13 BT (Rec: 12/15/21 14:13 BT [id number]) Advance Directive, confirm on record Time 14:13 Person contacted pt Copy received No CM Discharge Assessment Start: 12/16/21 09:27 Freq: Status: Active Protocol: Document 12/16/21 09:28 AJ (Rec: 12/16/21 09:28 AJ [id number]) Discharge Planning Assessment Assigned Obstetrics Gyn Physician Tatianna Foreman RN/DEMETRIUS Advance Directives? No History Provided By Patient Prior Living Arrangements House Household Members spouse Type of transporation used prior to Drives own vehicle admit Independent with ADL's Yes Is patient alert and oriented? Yes Caregiver for Another No Barriers to Discharge No Discharge Plan Home Transportation Arrangement Spouse POV Referrals Initiated None needed Whiteboard Updated in Patient Room with Yes name and ext. # of Obstetrics Gyn Physician Comment Instructed to call Review Status In Process Please Provide Date Initial DC 12/16/21 Assessment Was Performed Next Review Type Continued Stay Review
--- NOTE | 2021-12-16 10:53 | PC.NURSE ---
d/c instructions reviewed w/ patient and . encouraged to use OTC probiotics while taking cipro. PIV and tele d/c'd, left floor via w/c, escorted by BRANCH LIBRARY CLERK and . left facility in private car.
--- NOTE | 2021-12-16 14:05 | PM.DS.1 ---
History of Present Illness History of Present Illness Date Patient Seen: 12/16/21 Chief complaint: Left side went tingly Narrative: Per H&P: This is a 76-year-old male with a past medical history of glaucoma, BPH, and obesity who presented to the emergency room with left-sided numbness, slight weakness, and facial numbness that started at 11:30 a.m. this morning.? He denied any slurred speech or falls.? He had no right-sided symptoms and denied any headache, chest pain, palpitations, recent fever or chills, abdominal pain, nausea, vomiting, lower extremity edema, orthopnea.? Patient quickly went to the emergency room with the symptoms, and was found to have an NIH of 4 on exam.? Consultation was performed with tele stroke, but the patient had improving symptoms and opted against tPA administration after discussion with tele neurology and the ER provider. In the emergency room, he was mildly hypertensive, but the remainder of his vital signs were unremarkable.? Initial laboratory evaluation was unremarkable including CBC, chemistries, and coagulation studies.? Troponin testing was normal, alcohol level was undetectable, and COVID-19 testing was negative.? Initial head CT showed no at the hemorrhage in CT angiogram showed only mild clinically insignificant stenosis.? He was admitted for an acute stroke. During my evaluation the patient's symptoms had reportedly resolved and he had no complaints. Discharge Providers Provider Date of admission: 12/15/21 13:21 Discharge Date: 12/16/21 Primary care physician: Ja Aldana MD Consults: 12/15/21 13:48 Consult to Occupational Therapy Evaluate & Treat Comment: Physician Instructions: Evaluate and treat Discharge provider: Flavia Metcalf MD Summary Hospital Course Discharge Diagnosis: Transient ischemic attack, with complete resolution of neurologic symptoms Patent foramen ovale, new diagnosis Atrial fibrillation, new diagnosis Dyslipidemia BPH with obstruction, present on admission Class 1 obesity with BMI of 32.7 Hospital Course: Patient presented to the emergency department with left-sided numbness, slight weakness, and facial numbness that was transient in nature. He presented to the emergency department rather rapidly and was found to have an NIH score of 4. Telestroke consult was done in the emergency department with recommendation for consideration of tPA but patient declined. His symptoms subsequently rapidly resolved. He was admitted for further observation. Head CT was negative. CTA of the head neck revealed 30% narrowing at the origin of the left internal carotid artery. Brain MRI revealed no acute intracranial abnormalities. There is mild cerebral volume loss and chronic microvascular ischemic changes noted. Echocardiogram revealed normal LV size and function with an EF of 55-60%. There was normal right ventricular size and function. No significant valvular abnormalities. PFO is present with a left to right interatrial shunt noted. During the echocardiogram, patient developed atrial fibrillation. Due to the PFO, lower extremity duplex ultrasounds were performed to evaluate for DVT and were negative. Has had a negative MRI, apixaban was initiated on the evening of December 15 without any complications. Overnight, patient had no recurrent neurologic symptoms. Remained asymptomatic. He was evaluated by Occupational therapy and found to have no deficits. As the symptoms had completely resolved, physical therapy was canceled. Patient is discharging home in stable condition. He is initiated on atorvastatin 40 mg daily for his dyslipidemia. Will remain on apixaban as noted. He is also already on ciprofloxacin for a UTI which he will be completing soon. He is instructed to follow up with scheduled [facility] with regard to his PFO and consideration of closure. Is also encouraged to follow-up with his PCP with regard to his new diagnosis of atrial fibrillation. As part of his AFib workup, a TSH was performed and was noted to remain high. He was recently initiated on levothyroxine. He is slated for follow-up with his PCP this coming week for recheck. As his TSH remained high at 17.9, his levothyroxine was increased from 25 mcg daily to 37.5 mcg daily. He should have follow-up TSH in 6 weeks. Status at Discharge Cognitive/behavioral status at discharge: at baseline, oriented Functional status at discharge: independent ambulation Overall status at discharge: patient is back to baseline Time Spent with Patient Time spent: Greater than 30 minutes (45 minutes spent coordinating discharge) Exam Vital Signs (past 8 hours): - 12/16/21 08:51 12/16/21 09:00 Temperature 97.5 F L Pulse Rate 85 Respiratory Rate 17 Blood Pressure 155/75 H Pulse Oximetry 95 95 Oxygen Delivery Method Room Air Oxygen Flow Rate 0 Oxygen Delivery Method Room Air Oxygen Flow Rate 0 Narrative Exam Narrative: GEN: Very pleasant middle-aged male, Alert and oriented x 3, NAD HEENT:NC, Face symmetric CHEST: Respiratory excursions symmetric, CTAB CV: Irregularly irregular, no M/R/G ABD: Soft, NT/ND, BT present in all 4 quadrants, no organomegaly or masses EXTR: warm, well perfused, no C/C/E SKIN: warm and dry, no rash NEURO: Alert and oriented x 3, nonfocal Objective Labs Result Diagrams: 12/16/21 06:10 12/16/21 06:10 Labs: Laboratory Results - last 24 hr 12/15/21 12/15/21 12/16/21 13:40 21:45 06:10 WBC 7.1 RBC 4.13 L Hgb 13.5 Hct 39.4 L MCV 95.3 MCH 32.8 MCHC 34.4 RDW 14.8 Plt Count 264 Neut % (Auto) 69.9 Lymph % (Auto) 20.3 L Rooks % (Auto) 6.6 Eos % (Auto) 2.6 Baso % (Auto) 0.6 Neut # (Auto) 5000 Lymph # (Auto) 1400 Rooks # (Auto) 500 Eos # (Auto) 200 Baso # (Auto) 0 Sodium Potassium Chloride Carbon Dioxide BUN Creatinine Estimated GFR BUN/Creatinine Ratio Glucose Hemoglobin A1c Calcium Magnesium Total Bilirubin AST ALT Alkaline Phosphatase Total Protein Albumin Globulin Albumin/Globulin Ratio Triglycerides Cholesterol LDL Cholesterol, Calc HDL Cholesterol TSH Free T4 U Opiates 300ng/mL cut Negative Ur Oxycodone Screen Negative Urine Methadone Screen Negative Ur Barbiturates Screen Negative U Tricyclic Antidepress Negative Ur Phencyclidine Scrn Negative Ur Amphetamines Screen Negative U Methamphetamines Scrn Negative Ur MDMA Scrn (Ecstasy) Negative U Benzodiazepines Scrn Negative Urine Cocaine Screen Negative U Marijuana (THC) Screen Negative SARS-CoV-2 (PCR) Negative 12/16/21 12/16/21 12/16/21 06:10 06:10 06:10 WBC RBC Hgb Hct MCV MCH MCHC RDW Plt Count Neut % (Auto) Lymph % (Auto) Rooks % (Auto) Eos % (Auto) Baso % (Auto) Neut # (Auto) Lymph # (Auto) Rooks # (Auto) Eos # (Auto) Baso # (Auto) Sodium 137 Potassium 4.4 Chloride 110 H Carbon Dioxide 19 L BUN 17 Creatinine 1.02 Estimated GFR > 60 BUN/Creatinine Ratio 16.7 Glucose 122 H Hemoglobin A1c 5.6 Calcium 8.7 Magnesium 2.1 Total Bilirubin 1.0 AST 33 ALT 28 Alkaline Phosphatase 92 Total Protein 7.1 Albumin 3.9 Globulin 3.2 Albumin/Globulin Ratio 1.2 Triglycerides 139 Cholesterol 206 H LDL Cholesterol, Calc 130 H HDL Cholesterol 48 TSH 17.90 H Free T4 0.91 U Opiates 300ng/mL cut Ur Oxycodone Screen Urine Methadone Screen Ur Barbiturates Screen U Tricyclic Antidepress Ur Phencyclidine Scrn Ur Amphetamines Screen U Methamphetamines Scrn Ur MDMA Scrn (Ecstasy) U Benzodiazepines Scrn Urine Cocaine Screen U Marijuana (THC) Screen SARS-CoV-2 (PCR) FOR[facility]LY [facility], [facility] Medical History Advanced directives, counseling/discussion Cataracts, bilateral Glaucoma Hearing loss High prostate specific antigen (PSA) Hypothyroidism, unspecified Medicare annual wellness visit, initial Mixed hyperlipidemia Obesity (BMI 30.0-34.9) Travel advice encounter Surgical History History of cataract removal with insertion of prosthetic lens (~2018) History of vitrectomy (~2017) Family History Father Stroke Mother History of heart disease Social History household members: spouse Smoking Status: Never smoker Discharge Plan Discharge Plan Patient Disposition: Home Provider Discharge Comment: You were found to have patent Foramen [place]vale or PFO. You should follow-up with cardiology ([facility]) to arrange for closure of the PFO, as it does increase risk for stroke. You were found to have atrial fibrillation while you were in the hospital. This increases your risk of stroke. You have been started on anticoagulation (Apixiban/Eliquis) to reduce your risk of stroke. It does increase the risk of bleeding. Monitor your stool/emesis/urine. If you have any black/tarry stool, coffee ground appearing vomit or bloody urine, pls return to the ED. If you have a nosebleed that won't stop or other bleeding that doesn't stop, please return to the ED. Additionally, you have elevated cholesterol. Your total cholesterol is 206. Your LDL (bad cholesterol) is 130. The goal is to get that below 100. Your TSH remains high. I recommend increasing your thyroid replacement to 37.5 mcg daily. You will need a follow-up TSH in 6 weeks. Nursing Discharge Comment: return to ED/call 911 if symptoms return. call MD/pharmacy if any questions on medications. keep emery lower than bladder, f/u w/ urology (or PCP) w/in 7-10 days. keep yuki-area clean and dry, to prevent UTI. take all of the antibiotics as directed. it would be good to take a probiotic or eat yogurt daily while on antibiotic to preserve the good bacteria in your GI tract. probiotics are available OTC. thank you ! it was a pleasure to take care of you today, enjoy the rest of your day! Discharge orders & Medications Prescriptions: New atorvastatin [Lipitor] 20 mg Tablet 40 mg PO BEDTIME Qty: 30 0RF Eliquis 5 mg Tablet 5 mg PO BID Qty: 60 0RF levothyroxine 13 mcg capsule 13 mcg PO DAILY Qty: 30 0RF Continued latanoprost [Xalatan] 0.005 % drops 1 drp OU BEDTIME Qty: 0 levothyroxine 25 mcg capsule 25 mcg PO DAILY Qty: 90 1RF dorzolamide-timolol 22.3-6.8 mg/mL drops 1 drp EYE-BOTH BID Label Comments: INSTILL 1 DROP IN BOTH EYES TWICE DAILY tamsulosin [Flomax] 0.4 mg capsule 0.4 mg PO BEDTIME Qty: 30 0RF ciprofloxacin HCl [Cipro] 500 mg tablet 500 mg PO BID Qty: 2 0RF Discontinued ciprofloxacin HCl [Cipro] 500 mg tablet 500 mg PO BID Qty: 2 0RF Medication counseling provided by Pharmacist: No Follow up/Referrals: Ja Aldana MD [Primary Care Provider] - Diet/Activity/Treatments Diet: Regular Activity: As tolerated Oxygen: N/A Visit Report/Discharge Packet Instructions: Cholesterol-lowering Diet, DI for Transient Ischemic Attack, DI for Atrial Fibrillation Discharge Data Primary Care Provider: Ja Aldana V Attending Provider: Boni Guzmán VTE Deep Vein Thrombosis/Pulmonary Embolism Present on Admission: No
--- NOTE | 2021-12-16 14:30 | PT-IP ANOTE ---
Received PT eval order yesterday at ~ 130 pm but pt was not available for eval at that time due to imaging procedures. EMR reviewed again this morning and still with PT eval order but per Dr. Guzmán's note: pt not needing PT due to resolution of symptoms. Talked with hospitalist today Dr. Metcalf and stated that she will need to check on pt first and inform if PT is still needed. Checked back on the doctor after ~ 2 hours and stated that pt is going home and not PT needs and will d/c PT eval order.
== END 2021-12-16 11:16 | disposition home or self-care (01) ==
LOC: ED 13:15 → AC 13:22
PROVIDERS: Admitting Provider Internal Medicine; Emergency Provider Emergency Medicine; PCP Internal Medicine; Referring Provider Emergency Medicine; Visit Provider Internal Medicine
DX: G45.9 Transient cerebral ischemic attack, unspecified (principal); R29.704 NIHSS score 4; R20.0 Anesthesia of skin; R53.1 Weakness; N40.1 Benign prostatic hyperplasia with lower urinary tract symptoms; I10 Essential (primary) hypertension; E78.5 Hyperlipidemia, unspecified; N13.8 Other obstructive and reflux uropathy; I48.91 Unspecified atrial fibrillation; E66.9 Obesity, unspecified; Z68.32 Body mass index [BMI] 32.0-32.9, adult; Z20.822 Contact with and (suspected) exposure to COVID-19
CPT/HCPCS: 36415; 70450; 70496; 70498; 70551; 80048; 80053; 80061; 80305; 80320; 82550; 83036; 83735; 84439; 84443; 84484; 85025; 85610; 85730; 87635; 93005; 93306; 93970; 97165; 99285; 99291; C9803; G0378; Q9967

== ENCOUNTER 2021-12-18 17:41 | Emergency (ER) | payer MEDICARE, SELFPAY ==
[2021-12-15 13:59] VITALS: BMI 32.7
[2021-12-18 17:57] VITALS: BP 164/76; PULSE 68; RESP 16; TEMP 36.8; O2SAT 98; BMI 32.4
--- NOTE | 2021-12-18 18:40 | ED_ITS ---
HPI - Male Genitourinary General Chief complaint: Urogenital-Male Stated complaint: Urinary issue Time Seen by Provider: 12/18/21 18:16 Mode of arrival: Family Vehicle History of Present Illness HPI Narrative: 76-year-old male with history of TIA, hypertension, hyperlipidemia and urinary retention presents with difficulty urinating. [place] and was unable to urinate and had a Emery catheter placed which was in place for 8 or 9 days and just taken out this morning in his primary care office. He was told to present to the emergency department if he developed recurrent symptoms. He had an inability to urinate and suprapubic tenderness and presents for evaluation. He denies any fever chills nor nausea, vomiting or diarrhea patient unable to urinate and a bedside ultrasound noted greater than 500 mL of urine and emery catheter placed by nursing. Related Data Home Medications Medication Instructions Recorded Confirmed latanoprost 0.005 % eye drops 1 drp OU BEDTIME ##0 05/21/17 12/15/21 (Xalatan) dorzolamide 22.3 mg-timolol 6.8 1 drp EYE-BOTH BID 09/27/21 12/15/21 mg/mL eye drops Previous Rx's Medication Instructions Recorded levothyroxine 25 mcg capsule 25 mcg PO DAILY #90 caps 09/29/21 ciprofloxacin HCl 500 mg tablet 500 mg PO BID #2 tabs 12/12/21 (Cipro) tamsulosin 0.4 mg capsule (Flomax) 0.4 mg PO BEDTIME #30 caps 12/12/21 apixaban 5 mg tablet (Eliquis) 5 mg PO BID #60 tabs 12/16/21 atorvastatin 20 mg tablet (Lipitor) 40 mg PO BEDTIME #30 tabs 12/16/21 levothyroxine 13 mcg capsule 13 mcg PO DAILY #30 caps 12/16/21 Allergies Allergy/AdvReac Type Severity Reaction Status Date / Time No Known Drug Allergies Allergy Verified 12/18/21 18:01 Review of Systems Review of Systems Narrative: GENERAL: Denies chills, fatigue, malaise, fever, sweats. HEENT: Denies sinus pain, ear pain, sore throat, difficulty swallowing, dizziness. RESPIRATORY: Denies dyspnea, cough, wheezing, hemoptysis, sputum. CARDIOVASCULAR: Denies chest pain, palpitations, orthopnea, edema, GASTROINTESTINAL: Denies nausea, vomiting, abdominal pain, diarrhea, constipation, melena. : see HPI MUSCULOSKELETAL: denies weakness, joint pain, or bony pain SKIN: Denies rash, skin lesions, or other NEUROLOGIC: Denies weakness, headache, numbness, change in speech, confusion, seizures, incoordination. PSYCHIATRIC: No concerning psychosocial issues. 12 point review of systems is negative except for those stated above Patient History Medical History Advanced directives, counseling/discussion Cataracts, bilateral Glaucoma Hearing loss High prostate specific antigen (PSA) Hypothyroidism, unspecified Medicare annual wellness visit, initial Mixed hyperlipidemia Obesity (BMI 30.0-34.9) Travel advice encounter Surgical History History of cataract removal with insertion of prosthetic lens (~2018) History of vitrectomy (~2017) Family History Father Stroke Mother History of heart disease Social History household members: spouse Smoking Status: Never smoker Smoking Status: Never smoker alcohol intake frequency: a few times a week Substance Use Type: does not use Exam Narrative Exam Narrative: GENERAL: [76] year old patient appears stated age. Well-developed patient, in mild distress. HEAD: Atraumatic. Normocephalic. EYES: Pupils equal round and reactive. Extraocular motions intact. No scleral icterus. No injection or drainage. ENT: Nose without bleeding, purulent drainage. Throat without erythema, tonsillar hypertrophy or exudate. Airway patent. NECK: Trachea midline. Non tender CARDIOVASCULAR: Regular rate and rhythm without murmurs, gallops, or rubs. RESPIRATORY: Clear to auscultation. Breath sounds equal bilaterally. No wheezes, rales, or rhonchi. GASTROINTESTINAL: Abdomen soft, tender in the suprapubic region nondistended. EXTREMITIES: No edema or joint tenderness. BACK: Nontender without deformity or crepitance. No flank tenderness. NEURO: AOx3. SKIN: No rash or erythema of visible areas Initial Vital Signs Initial Vital Signs: Vital Signs Temperature 98.2 F 12/18/21 17:57 Pulse Rate 68 12/18/21 17:57 Respiratory Rate 16 12/18/21 17:57 Blood Pressure 164/76 H 12/18/21 17:57 Pulse Oximetry 98 12/18/21 17:57 Oxygen Delivery Method 12/18/21 17:57 Course Vital Signs Vital signs: Vital Signs - 8 hr 12/18/21 17:57 Temperature 98.2 F Pulse Rate 68 Respiratory Rate 16 Blood Pressure 164/76 H Pulse Oximetry 98 Oxygen Delivery Method Room Air MDM - Male Genitourinary Lab Data Labs: Lab Results 12/18/21 Range/Units 19:06 Urine Color [place] Urine Appearance Cloudy Urine pH 5.0 (4.5-8.0) Ur Specific [place] <=1.005 (1.000-1.035) Urine Protein 1+ H (Negative) Urine Glucose (UA) Negative (Negative) g/dL Urine Ketones Negative (NEGATIVE) Urine Occult Blood 3+ H (Negative) Urine Nitrate Negative (Negative) Urine Bilirubin Negative (NEGATIVE) Urine Urobilinogen 0.2 (0.2) E.U./dL Ur Leukocyte Esterase Negative (NEGATIVE) Urine RBC 10-30/hpf H (0-5/HPF) Urine WBC 0-1/hpf (0-5/HPF) Amorphous Sediment 2+ Urine Bacteria None seen (None) Ur Culture Indicated? Cult not indicated Discharge Plan Departure Patient Disposition: Home Clinical Impression: Acute on chronic urinary retention Instructions: DI for Urinary Retention in Men Activity Restrictions/Additional Instructions: *You have been diagnosed with [recurrence of urinary retention. There is no evidence of infection in your urine today] *What to do: *Please continue to take your regular medications as directed. [ ] New medication prescriptions sent to your pharmacy: [ ] [ ] New medication written as a paper prescription [x ] No new medications given *Please follow up with your primary care provider in 2-3 days, call for an appointment. Let them know you were seen in the Emergency Department and that we ask that you be seen in follow up. We will electronically transmit a record of today's note if your PCP is in our system * additionally, as we discussed it would seem reasonable to have you evaluated by local urology given the recurrence of symptoms. Please call Dr. Oviedo is office tomorrow and let them know that you were seen and evaluated in the emergency department for urinary retention with greater than 500 mL of postvoid residual and that we would like you seen in follow-up *Return to Emergency Department if you should have any new, worsening or concerning symptoms, such as [fever greater than 101 F, shaking chills, worsening pain, persistent vomiting or other bothersome symptoms] Prescriptions: No Action latanoprost [Xalatan] 0.005 % drops 1 drp OU BEDTIME Qty: 0 levothyroxine 25 mcg capsule 25 mcg PO DAILY Qty: 90 1RF dorzolamide-timolol 22.3-6.8 mg/mL drops 1 drp EYE-BOTH BID Label Comments: INSTILL 1 DROP IN BOTH EYES TWICE DAILY tamsulosin [Flomax] 0.4 mg capsule 0.4 mg PO BEDTIME Qty: 30 0RF ciprofloxacin HCl [Cipro] 500 mg tablet 500 mg PO BID Qty: 2 0RF atorvastatin [Lipitor] 20 mg Tablet 40 mg PO BEDTIME Qty: 30 0RF Eliquis 5 mg Tablet 5 mg PO BID Qty: 60 0RF levothyroxine 13 mcg capsule 13 mcg PO DAILY Qty: 30 0RF Referrals: Anastasia Oviedo MD [Physician] - Ja Aldana MD [Primary Care Provider] - Visit Report Forms: Patient Portal/API
[2021-12-18 19:18] LABS: Appearance Urine UA CLOUDY; Bilirubin Urine UA NEGATIVE (NEGATIVE); Color Urine UA ORANGE; Glucose Urine UA NEGATIVE (Negative); Ketones Urine UA NEGATIVE (NEGATIVE); Leukocyte Esterase Urine UA NEGATIVE (NEGATIVE); Nitrite Urine UA NEGATIVE (Negative); Occult Blood Urine UA 3+ (Negative); Protein Urine UA 1+ (Negative); Specific Gravity Urine UA <=1.005 (1.000-1.035); Urobilinogen Urine UA 0.2 E.U./dL (0.2)
[2021-12-18 19:30] LABS: Amorphous Sediment Urine 2+; Bacteria Urine None Seen; RBC Urine 10-30/HPF (0-5/HPF); WBC Urine 0-1/HPF (0-5/HPF)
[2021-12-18 19:31] LABS: Culture Indicated Urine Cult Not Indicated
[2021-12-18 20:21] VITALS: BP 141/83; PULSE 107; RESP 18; O2SAT 98
== END 2021-12-18 20:24 | disposition home or self-care (01) ==
PROVIDERS: Emergency Provider Emergency Medicine; PCP Internal Medicine
DX: R33.8 Other retention of urine (principal)
CPT/HCPCS: 51798; 81001; 99283

== ENCOUNTER 2022-01-16 03:04 | Emergency (ER) | payer MEDICARE, SELFPAY ==
[2021-12-28 14:52] VITALS: BMI 32.7
[2022-01-16 03:19] VITALS: BP 150/100; PULSE 86; RESP 17; TEMP 36.4; O2SAT 98; BMI 32.0
--- NOTE | 2022-01-16 03:57 | PC.NURSE ---
Pt started self straight cathing yesterday and over night was unable to pass catheter. Bladder scan in ED showed about 300 cc of urine in bladder
--- NOTE | 2022-01-16 04:21 | ED.GENADULT ---
HPI - General Adult General Chief complaint: Urogenital-Male Stated complaint: CATHETER NEEDS LOOKED AT Time Seen by Provider: 01/16/22 03:14 Source: patient Mode of arrival: Ambulatory History of Present Illness HPI narrative: 76-year-old gentleman with a history of acute urinary retention developing on recent vacation to [facility], history of TIA and on apixaban, hypertension hyperlipidemia who initially presented for Magdaleno catheter evaluation Magdaleno catheter was changed. Urine was cultured and did not show significant infection. He was started on tamsulosin. He has been followed up in the urology office and Magdaleno catheter was removed he was instructed on self catheterization. He was able to do so twice but this evening he was not able to pass the catheter and encountered blood. Has approximately 300 cc of urine in his bladder and comes in for assistance. Related Data Home Medications Medication Instructions Recorded Confirmed latanoprost 0.005 % eye drops 1 drp OU BEDTIME ##0 05/21/17 12/22/21 (Xalatan) dorzolamide 22.3 mg-timolol 6.8 1 drp EYE-BOTH BID 09/27/21 12/22/21 mg/mL eye drops Previous Rx's Medication Instructions Recorded levothyroxine 25 mcg capsule 25 mcg PO DAILY #90 caps 09/29/21 apixaban 5 mg tablet (Eliquis) 5 mg PO BID #180 tabs 12/22/21 atorvastatin 40 mg tablet 40 mg PO DAILY #90 tabs 12/22/21 levothyroxine 13 mcg capsule 13 mcg PO DAILY #90 caps 12/22/21 tamsulosin 0.4 mg capsule (Flomax) 0.4 mg PO BID #60 caps 01/04/22 Allergies Allergy/AdvReac Type Severity Reaction Status Date / Time No Known Drug Allergies Allergy Verified 01/11/22 09:42 Review of Systems Review of Systems Narrative: Remainder of complete review of systems is otherwise unremarkable except for that included in the HPI. Patient History Medical History Acquired hypothyroidism BPH w urinary obs/LUTS Cataracts, bilateral Cerebrovascular disease Chronic anticoagulation Glaucoma Hearing loss High prostate specific antigen (PSA) Mixed hyperlipidemia Obesity (BMI 30.0-34.9) Paroxysmal atrial fibrillation Surgical History History of cataract removal with insertion of prosthetic lens (~2018) History of vitrectomy (~2017) Family History Father Stroke Mother History of heart disease Social History number of children: 2 household members: spouse Smoking Status: Never smoker Type(s) of exercise: other frequency: daily Smoking Status: Never smoker alcohol intake frequency: a few times a week Substance Use Type: does not use Exam Initial Vital Signs Initial Vital Signs: Vital Signs Temperature 97.5 F L 01/16/22 03:19 Pulse Rate 86 01/16/22 03:19 Respiratory Rate 17 01/16/22 03:19 Blood Pressure 150/100 H 01/16/22 03:19 Pulse Oximetry 98 01/16/22 03:19 Oxygen Delivery Method 01/16/22 03:19 General: Alert appropriate in no acute distress Respiratory: Able to speak in full sentences, no obvious respiratory distress Skin: No obvious rashes, warm and dry Neurologic: Grossly intact no obvious asymmetries or abnormalities Psych: appropriate insight and affect, cooperative Magdaleno catheter is placed without difficulty. Bloody urine returns. 300 cc with estimated on bladder scan after voiding. 300 cc does return with Magdaleno placement. Bladder is irrigated with no significant clots coming out, pink urine is still draining nicely. Course Orders Ordered: ED Orders 01/16/22 04:45 Urinalysis and Microscopic Stat Urine Culture Stat Vital Signs Vital signs: Vital Signs - 8 hr 01/16/22 03:19 Temperature 97.5 F L Pulse Rate 86 Respiratory Rate 17 Blood Pressure 150/100 H Pulse Oximetry 98 Oxygen Delivery Method Room Air Medical Decision Making Lab Data Labs: Lab Results 01/16/22 Range/Units 04:45 Urine Color Reddish brown Urine Appearance Cloudy Urine pH 8 (4.5-8.0) Ur Specific Lincoln 1.015 (1.000-1.035) Urine Protein 3+ H (Negative) Urine Glucose (UA) Negative (Negative) g/dL Urine Ketones Negative (NEGATIVE) Urine Occult Blood 3+ H (Negative) Urine Nitrate Negative (Negative) Urine Bilirubin Negative (NEGATIVE) Urine Urobilinogen Normal (0.2) E.U./dL Ur Leukocyte Esterase 1+ H (NEGATIVE) Urine RBC >100/hpf H (0-5/HPF) Urine WBC 10-30/hpf H (0-5/HPF) Urine Bacteria None seen (None) Ur Culture Indicated? Specimen cultured MDM Narrative Medical decision making narrative: 76-year-old gentleman with bladder of outlet obstruction issues and difficulty with Magdaleno catheter placement. He is currently on tamsulosin had Magdaleno catheter removed yesterday and was going to try intermittent self cathing. Began having some bleeding and was unable to pass the catheter. Magdaleno catheter was placed in the emergency department without complication. There was pink urine but no dramatic clots appreciated. Was irrigated to shoe salesperson urine but not completely clear no clots and urine was draining nicely. He is discharged home with Magdaleno catheter in place continue tamsulosin and will follow-up with Dr. Oviedo for definitive treatment of his acute urinary retention and bladder outlet obstruction. Discharge Plan Departure Patient Disposition: Home Clinical Impression: BPH w urinary obs/LUTS Instructions: DI for Urinary Retention in Men Activity Restrictions/Additional Instructions: Thank you for coming in today Magdaleno catheter was replaced. Please do continue your tamsulosin If you find that the catheter becomes blocked you will need to return to the emergency department. Please make sure you are staying well hydrated. You will need to follow-up with Dr. Oviedo for definitive treatment and further recommendations. Prescriptions: No Action latanoprost [Xalatan] 0.005 % drops 1 drp OU BEDTIME Qty: 0 levothyroxine 25 mcg capsule 25 mcg PO DAILY Qty: 90 1RF tamsulosin [Flomax] 0.4 mg capsule 0.4 mg PO BID Qty: 60 0RF Rx Instructions: Take one at mid-morning and one at bedtime dorzolamide-timolol 22.3-6.8 mg/mL drops 1 drp EYE-BOTH BID Label Comments: INSTILL 1 DROP IN BOTH EYES TWICE DAILY Eliquis 5 mg tablet 5 mg PO BID Qty: 180 3RF atorvastatin 40 mg tablet 40 mg PO DAILY Qty: 90 3RF levothyroxine 13 mcg capsule 13 mcg PO DAILY Qty: 90 0RF Referrals: Ja Aldana MD [Primary Care Provider] -
[2022-01-16 05:11] LABS: Appearance Urine UA CLOUDY; Color Urine UA REDDISH BROWN; pH Urine UA 8 (4.5-8.0)
[2022-01-16 05:12] LABS: Bilirubin Urine UA Negative (NEGATIVE); Glucose Urine UA NEGATIVE (Negative); Ketones Urine UA NEGATIVE (NEGATIVE); Nitrite Urine UA NEGATIVE (Negative); Occult Blood Urine UA 3+ (Negative); Protein Urine UA 3+ (Negative); Specific Gravity Urine UA 1.015 (1.000-1.035)
[2022-01-16 05:13] LABS: Leukocyte Esterase Urine UA 1+ (NEGATIVE); Urobilinogen Urine UA Normal E.U./dL (0.2)
[2022-01-16 06:20] LABS: Bacteria Urine None Seen; Culture Indicated Urine Specimen Cultured; RBC Urine >100/HPF (0-5/HPF); WBC Urine 10-30/HPF (0-5/HPF)
[2022-01-16 07:41] VITALS: BP 136/74; PULSE 76; RESP 16; O2SAT 99
--- NOTE | 2022-01-16 07:46 | PC.NURSE ---
LIght pink urine continues to drain from emery. Patient denies any discomfort or symptoms of retention at time of discharge.
== END 2022-01-16 07:50 | disposition home or self-care (01) ==
PROVIDERS: Emergency Provider Emergency Medicine; PCP Internal Medicine
DX: N40.1 Benign prostatic hyperplasia with lower urinary tract symptoms (principal); R33.8 Other retention of urine; B95.8 Unspecified staphylococcus as the cause of diseases classified elsewhere
CPT/HCPCS: 51798; 81001; 87077; 87086; 87147; 99283

== ENCOUNTER → 2022-02-02 06:57 | Outpatient (CLI) | payer MEDICARE, SELFPAY ==
[2021-12-28 14:52] VITALS: BMI 32.7
[2022-02-02 09:05] LABS: Alanine Aminotransferase 25 IU/L (<50); Albumin 3.8 g/dL (3.5-5.0); Albumin Globulin Ratio 1.3 (1.0-2.8); Alkaline Phosphatase 116 U/L (38-126); Aspartate Aminotransferase 22 IU/L (17-59); BUN Creatinine Ratio 17.5 (6-22); Bilirubin Total 1.2 mg/dL (0.2-1.3); Blood Urea Nitrogen 17 mg/dL (9-20); Calcium 8.8 mg/dL (8.4-10.2); Carbon Dioxide 21 mmol/L (22-32); Chloride 104 mmol/L (98-107); Cholesterol 134 mg/dL (140-199); Estimated Glomerular Filt Rate > 60 mL/min (>60); Globulin 2.9 g/dL (1.7-4.1); Glucose 109 mg/dL (80-110); HDL Cholesterol 57 mg/dL (40-60); HEMOLYSIS < 15 (0-50); LDL Cholesterol Calculated 61 mg/dL (<100); Potassium 4.3 mmol/L (3.4-5.1); Sodium 135 mmol/L (137-145); Total Protein 6.7 g/dL (6.3-8.2); Triglycerides 81 mg/dL (35-150)
[2022-02-02 10:07] LABS: Free T4, Direct Thyroxine 1.07 ng/dL (0.78-2.19)
== END ==
PROVIDERS: PCP Internal Medicine; Referring Provider Internal Medicine; Visit Provider Internal Medicine
DX: E03.9 Hypothyroidism, unspecified (principal); E78.2 Mixed hyperlipidemia
CPT/HCPCS: 36415; 80053; 80061; 84439; 84443

== ENCOUNTER 2022-02-08 15:39 | Emergency (ER) | payer MEDICARE, SELFPAY ==
[2021-12-28 14:52] VITALS: BMI 32.7
[2022-02-08 15:52] VITALS: BP 159/79; PULSE 91; RESP 16; TEMP 36.9; O2SAT 96; BMI 32.1
[2022-02-08] MEDS: LIDOCAINE 2% (GLYDO) 6 ML GEL TOP (18:36)
--- NOTE | 2022-02-08 18:52 | PC.NURSE ---
Patient comes in to the ED for not being able to straight cath himself. He states his last attempt was at 0900 this morning and was unable to insert the catheter. He has been cathing himself for 10 days now for retention and has had urinary problems for two months now and sees a urologist. His urologist was not in the office today and he was sent to the ED by the urology nurse.
--- NOTE | 2022-02-08 19:30 | ED_ITS ---
HPI - Male Genitourinary General Chief complaint: Urogenital-Male Stated complaint: Unable to urinate/unable to self catheter Time Seen by Provider: 02/08/22 18:21 Source: patient Mode of arrival: Ambulatory History of Present Illness HPI Narrative: Patient is a 76-year-old male has a history of chronic urinary retention, TIA on Eliquis presenting today with difficulty urinating. He states that he was self catheterizing for the last 10 days. He got tired of having an indwelling Magdaleno catheter feet so he was self catheterizing every 6 hours. However today he was having difficulty and could not get any urine out. At which point he came to the ED. A Magdaleno catheter has since been placed. It is quite dark. He had a negative urinalysis 2 days ago. No fevers or chills no abdominal pain no nausea vomiting Related Data Home Medications Medication Instructions Recorded Confirmed latanoprost 0.005 % eye drops 1 drp OU BEDTIME ##0 05/21/17 02/06/22 (Xalatan) dorzolamide 22.3 mg-timolol 6.8 1 drp EYE-BOTH BID 09/27/21 02/06/22 mg/mL eye drops levothyroxine 25 mcg capsule 50 mcg PO DAILY 02/06/22 02/06/22 Previous Rx's Medication Instructions Recorded apixaban 5 mg tablet (Eliquis) 5 mg PO BID #180 tabs 12/22/21 atorvastatin 40 mg tablet 40 mg PO DAILY #90 tabs 12/22/21 tamsulosin 0.4 mg capsule (Flomax) 0.4 mg PO BID #60 caps 02/06/22 Allergies Allergy/AdvReac Type Severity Reaction Status Date / Time No Known Drug Allergies Allergy Verified 02/08/22 15:57 Review of Systems Review of Systems Narrative: GENERAL: Denies chills,fever HEENT: Denies throat pain RESPIRATORY: Denies dyspnea, cough, wheezing CARDIOVASCULAR: Denies chest pain, palpitations GASTROINTESTINAL: Denies nausea, vomiting : See HPI MUSCULOSKELETAL: Denies extremity pain, injury SKIN: No rash, no laceration, no pruritus NEUROLOGIC: Denies weakness, dizziness, headache, numbness 8 point review of systems is negative except for those stated above and HPI Patient History Medical History Acquired hypothyroidism Balanitis BPH w urinary obs/LUTS Cataracts, bilateral Cerebrovascular disease Chronic anticoagulation Elevated PSA Glaucoma Hearing loss High prostate specific antigen (PSA) Mixed hyperlipidemia Obesity (BMI 30.0-34.9) Paroxysmal atrial fibrillation Urinary retention Surgical History History of cataract removal with insertion of prosthetic lens (~2018) History of vitrectomy (~2017) Family History Father Stroke Mother History of heart disease Social History number of children: 2 household members: spouse Smoking Status: Never smoker Type(s) of exercise: other frequency: daily Smoking Status: Never smoker alcohol intake frequency: a few times a week Substance Use Type: does not use Exam Initial Vital Signs Initial Vital Signs: Vital Signs Temperature 98.4 F 02/08/22 15:52 Pulse Rate 91 H 02/08/22 15:52 Respiratory Rate 16 02/08/22 15:52 Blood Pressure 159/79 H 02/08/22 15:52 Pulse Oximetry 96 02/08/22 15:52 Oxygen Delivery Method 02/08/22 15:52 GENERAL: Well-appearing, well-nourished and in no acute distress. CARDIOVASCULAR: peripheral pulses in tact, cap refill <2 sec RESPIRATORY: No respiratory distress, speaks in full sentences without difficulty [ABDOMEN: Soft, nontender, no guarding or rebound] EXTREMITIES: Normal range of motion, no clubbing or edema. Neurovascularly intact NEUROLOGICAL: Cranial nerves II through XII grossly intact. Normal gait and speech. SKIN: Warm, dry, no petechiae, no rashes or lesions. Course Orders Ordered: ED Orders 02/08/22 17:30 Urine Culture Stat Urine Microscopic Stat Discontinued Medications Lidocaine HCl (Lidocaine 2% (Glydo) 6 Ml Gel) 6 ml TOP NOW ONE Stop: 02/08/22 18:20 Last Admin: 02/08/22 18:36 Dose: 6 ml Documented By: JOSE Vital Signs Vital signs: Vital Signs - 8 hr 02/08/22 15:52 Temperature 98.4 F Pulse Rate 91 H Respiratory Rate 16 Blood Pressure 159/79 H Pulse Oximetry 96 Oxygen Delivery Method Room Air MDM - Male Genitourinary Lab Data Labs: Lab Results 02/08/22 02/08/22 Range/Units 17:30 17:30 Urine Color Cancelled Urine Appearance Cancelled Urine pH Cancelled Ur Specific Procious Cancelled Urine Protein Cancelled Urine Glucose (UA) Cancelled Urine Ketones Cancelled Urine Occult Blood Cancelled Urine Nitrate Cancelled Urine Bilirubin Cancelled Urine Urobilinogen Cancelled Ur Leukocyte Esterase Cancelled Urine RBC Cancelled >100/hpf H Urine WBC Cancelled 1-5/hpf Ur Squamous Epith Cells Cancelled None seen Ur Transition Epith Cell Cancelled Air Antisubmarine Officer Ur Renal Epithelial Cell Cancelled Air Antisubmarine Officer Calcium Oxalate Crystal Cancelled Air Antisubmarine Officer Uric Acid Crystals Cancelled Air Antisubmarine Officer Triple Phos Crystals Cancelled Air Antisubmarine Officer Other Crystals Cancelled Air Antisubmarine Officer Amorphous Sediment Cancelled Air Antisubmarine Officer Urine Bacteria Cancelled Few (2-10) H Hyaline Casts Cancelled Air Antisubmarine Officer Granular Casts Cancelled Air Antisubmarine Officer RBC Casts Cancelled Air Antisubmarine Officer WBC Casts Cancelled Air Antisubmarine Officer Other Casts Cancelled Air Antisubmarine Officer Urine Mucus Cancelled Air Antisubmarine Officer Urine Trichomonas Cancelled Air Antisubmarine Officer Urine Yeast Cancelled Air Antisubmarine Officer Urine Sperm Cancelled Air Antisubmarine Officer Ur Culture Indicated? Cancelled Specimen cultured Micro UA Comment Cancelled Air Antisubmarine Officer Urine Dip Bedside Urine Glucose Negative Bedside Urine Bilirubin - Negative Bedside Urine Ketone - Negative Urine Specific Procious 1.025 Bedside Urine Occult Blood +++ Bedside Urine pH 5.5 Bedside Urine Protein ++ 100 Bedside Urine Urobilinogen - Negative Bedside Urine Nitrite - Negative Bedside Urine Leukocytes +/- 15 Esterase MDM Narrative Medical decision making narrative: Patient had Magdaleno catheter placed in the ED. No sign of infection at this time. Urinalysis from 2 days ago also did not show any sort of infection. Urine was quite dark but no gross blood or blood clots. Urine cultures Discharge Plan Departure Patient Disposition: Home Clinical Impression: Acute urinary retention Instructions: DI for Urinary Retention in Men Activity Restrictions/Additional Instructions: *You have been diagnosed with urinary retention *What to do: At this time he Magdaleno catheter and follow-up your urologist *Continue to take medications as directed *Follow up with your primary care provider in 2-3 days or call [phone] *Return to ER if you should have bright red blood catheter not working or any new, worsening or concerning symptoms Prescriptions: No Action latanoprost [Xalatan] 0.005 % drops 1 drp OU BEDTIME Qty: 0 tamsulosin [Flomax] 0.4 mg capsule 0.4 mg PO BID Qty: 60 5RF Rx Instructions: Take one at mid-morning and one at bedtime dorzolamide-timolol 22.3-6.8 mg/mL drops 1 drp EYE-BOTH BID Label Comments: INSTILL 1 DROP IN BOTH EYES TWICE DAILY Eliquis 5 mg tablet 5 mg PO BID Qty: 180 3RF atorvastatin 40 mg tablet 40 mg PO DAILY Qty: 90 3RF levothyroxine 25 mcg capsule 50 mcg PO DAILY Referrals: Ja Aldana MD [Primary Care Provider] - Visit Report Forms: Patient Portal/API
[2022-02-08 20:29] LABS: Bacteria Urine Few (2-10); Culture Indicated Urine Specimen Cultured; RBC Urine >100/HPF (0-5/HPF); Squamous Epithelial Cell Urine None Seen (0-5/HPF); WBC Urine 1-5/HPF (0-5/HPF)
== END 2022-02-08 20:05 | disposition home or self-care (01) ==
PROVIDERS: Emergency Provider Emergency Medicine; PCP Internal Medicine
DX: R33.8 Other retention of urine (principal); Z86.73 Personal history of transient ischemic attack (TIA), and cerebral infarction without residual deficits; Z79.01 Long term (current) use of anticoagulants
CPT/HCPCS: 81003; 81015; 87086; 99283

== ENCOUNTER → 2022-02-22 09:19 | Outpatient (CLI) | payer MEDICARE, SELFPAY ==
[2021-12-28 14:52] VITALS: BMI 32.7
[2022-02-22 10:47] LABS: COVID19 -Nasal RAPID Negative (Negative)
--- NOTE | 2022-02-24 04:25 | DI.NM.S_ITS ---
DATE OF SERVICE: 02/22/2022 PROCEDURE PERFORMED: Exercise treadmill stress and rest myocardial perfusion imaging with gating to assess ejection fraction and regional wall motion. ORDERING PROVIDER: Dr. Ja Aldana. INDICATIONS: The patient is a 76-year-old male with a history of paroxysmal atrial fibrillation who requires preoperative cardiac evaluation prior to surgery. EXERCISE TREADMILL STRESS: The patient was able to exercise for a total of 6 minutes, 1 second on a standard Dave protocol, suggesting good exercise capacity with an BENJI of -6%. He had a normal heart rate and blood pressure response to exercise, achieving a maximum heart rate of 132 BPM (92% of his predicted maximum). He had no chest discomfort or other anginal symptoms. His resting ECG shows sinus rhythm with frequent PACs and PVCs, at times, in a bigeminal pattern. With stress, these generally improve, although return in the recovery period, predominantly with occasional PACs. He develops 1-1.[address] depression at peak exercise that is predominantly upsloping and nearly completely resolves by 1 minute into recovery, although with some late T- wave abnormalities in the inferolateral leads. At 5 minutes of exercise at a heart rate of 125 BPM, 25.7 millicuries of technetium-99m Myoview was injected and he was imaged 15 minutes later using a gated SPECT acquisition protocol. The day prior while at rest, he had been injected with 25 millicuries of technetium-99m Myoview and was imaged 20 minutes later, again using a gated SPECT acquisition protocol. FINDINGS: 1. Raw data: There is fair myocardial tracer uptake, but with considerable motion on both the stress and rest images that can introduce significant artifact. The lung/heart ratio was normal at 0.33 with a normal TID ratio of 1.00. 2. Quantitated Gated SPECT: Post stress ejection fraction is estimated at 73% without any focal wall motion abnormalities. Specifically, the inferior wall appears to have normal contractility. The right ventricular free wall has increased tracer activity, which can be an indication of a right ventricular overload condition. The resting ejection fraction is 65% without any focal wall motion abnormality and a normal resting end-diastolic volume of 102 mL. 3. Myocardial perfusion imaging: Post-stress supine images shows a fairly normal myocardial perfusion pattern, although with a mild perfusion defect in the mid inferior wall but this defect nearly completely resolves on the prone images, yet a very slight perfusion defect remains present in the midportion of the inferior wall. The resting images show a more profound defect in the inferior wall without any areas of improvement. IMPRESSION: 1. Probable normal myocardial perfusion study although with somewhat reduced sensitivity because of significant motion artifact. 2. Mild, fixed inferior wall defect that is actually worse on the resting images and nearly completely resolves on the prone images. While this could reflect a previous nontransmural inferior infarction, the absence of any wall motion abnormality suggests this more likely reflects diaphragmatic attenuation artifact. There is no compelling evidence for any myocardial ischemia. 3. Normal left ventricular systolic function without any focal wall motion abnormality. The right ventricular free wall has increased tracer uptake which can be a sign of a right ventricular overload condition; clinical correlation is recommended. 4. Good exercise capacity without angina. While he has some significant ST- segment shifts with exercise, these are relatively nonspecific given the rapid normalization, although could indicate ischemia. He had frequent PACs and PVCs at rest that improved with exercise and returnedin recovery, but no complex ventricular ectopy. 5. Compared to his previous myocardial perfusion study of 04/02/2012, he previously was able to achieve a BENJI of -20%, suggesting some decline in his exercise capacity. However, his ECG tracings had similar changes to today's study with significant ST depression that persisted into recovery. His ejection fraction remains unchanged and the previous perfusion imaging suggested a diaphragmatic attenuation artifact and thus is essentially unchanged from today's exam. Erickson Keith - ARIAN/barbara/dianne doc#: [id number]/job#: [id number] dd: 02/23/2022 16:46:00 dt: 02/24/2022 04:04:00 DICTATING /COPIES TO: Juan Keller MD COPIES MNE: BRANDY;
== END ==
PROVIDERS: Family Provider Internal Medicine; PCP Internal Medicine; Referring Provider Internal Medicine; Visit Provider Internal Medicine
DX: Z01.818 Encounter for other preprocedural examination (principal); I48.0 Paroxysmal atrial fibrillation; Z20.822 Contact with and (suspected) exposure to COVID-19
CPT/HCPCS: 78452; 87635; 93017; A9502

== ENCOUNTER → 2022-03-09 10:30 | Outpatient (CLI) | payer MEDICARE, SELFPAY ==
[2021-12-28 14:52] VITALS: BMI 32.7
== END ==
PROVIDERS: Family Provider Internal Medicine; PCP Internal Medicine; Visit Provider Specialist
DX: N13.8 Other obstructive and reflux uropathy (principal); N40.1 Benign prostatic hyperplasia with lower urinary tract symptoms; R33.9 Retention of urine, unspecified
CPT/HCPCS: 87077; 87086; 87186

== ENCOUNTER → 2022-03-16 09:48 | Outpatient (CLI) | payer MEDICARE, SELFPAY ==
[2021-12-28 14:52] VITALS: BMI 32.7
== END ==
PROVIDERS: Family Provider Internal Medicine; PCP Internal Medicine; Visit Provider Specialist
DX: N40.1 Benign prostatic hyperplasia with lower urinary tract symptoms (principal); N13.8 Other obstructive and reflux uropathy
CPT/HCPCS: 87077; 87086; 87186; 99211

== ENCOUNTER → 2022-04-16 10:52 | Outpatient (CLI) | payer MEDICARE, SELFPAY ==
[2021-12-28 14:52] VITALS: BMI 32.7
== END ==
PROVIDERS: Family Provider Internal Medicine; PCP Internal Medicine; Visit Provider Specialist
DX: N40.1 Benign prostatic hyperplasia with lower urinary tract symptoms (principal); N13.8 Other obstructive and reflux uropathy
CPT/HCPCS: 51702; 87077; 87086; 87186

== ENCOUNTER 2022-04-30 06:13 | Inpatient (IN) | payer MEDICARE, SELFPAY ==
[2021-12-28 14:52] VITALS: BMI 32.7
[2022-04-25 08:27] VITALS: BMI 31.5
[2022-04-30] VITALS (12 sets, daily range): BP systolic 95–171; BP diastolic 62–85; PULSE 67–93; RESP 12–19; TEMP 36.1–36.5; O2SAT 96–100; BMI 31.1
--- NOTE | 2022-04-30 | PATH_ITS ---
[facility] Accession Number: [id number] . 01 Material submitted: . prostate - PROSTATE . 01 Diagnosis: Prostate, Prostatectomy: Adenocarcinoma of the prostate present as two small foci. Please see cancer case summary. . . CANCER CASE SUMMARY Specimen Procedure: Simple open prostatectomy. . Prostate size Prostate weight in grams: 62 grams. Prostate size in centimeters: Disrupted unoriented specimen measures 7.3 x 5.7 x 3.0 cm. . Tumor Histologic type: Acinar adenocarcinoma. Histologic grade: Grade group 1 (Mercy score 3+3=6). Intraductal carcinoma: Not identified. Treatment effect: No known presurgical therapy. Tumor quantitation Estimated percentage of prostate involved by tumor: 1-5%. Extraprostatic extension: Not applicable (simple prostatectomy procedure). . Urinary bladder neck invasion: Not identified. Seminal vesicle invasion: No seminal vesicle present. Lymphovascular invasion: Not identified. . Margins Margin status: Negative for tumor. . Regional lymph nodes: Not applicable (no regional lymph nodes submitted or found). . Pathologic stage classification (pTNM, AJCC 8th Edition): If no additional tumor is present to modify staging: pT2 pN not assigned (no nodes submitted or found). . Additional findings: Glandular and stromal hyperplasia. [facility] 05/04/2022 1554 Local . 01 Comment: As part of routine quality control, this case was also reviewed by Dr. Baldwin, who agrees with the interpretation. . 01 Electronically signed: . Maria Dolores Corado MD, Pathologist NPI- [id number] . 01 Gross description: . The specimen is received in formalin labeled with the patient's name, , and prostate, and consists of an unoriented disrupted distorted prostate weighing 62 grams and measuring 7.3 x 5.7 x 3.0 cm. No seminal vesicles or vas deferens is identified, and the urethral margins cannot be identified. A white long suture is identified on the external surface with no designation per the requisition. Sectioning reveals a diffusely sapp nodular firm cut surface with no discrete lesions grossly identified. Leather Staker sections are submitted in cassettes A1-A15. ([id number]) /MRV 05/02/2022 0123 Local . 01 Microscopic: . An immunohistochemical stain for high molecular weight cytokeratin plus p63 is performed on blocks A1 and A6 to evaluate for reactivity and is absent in the regions of interest. The control stain showed appropriate reactivity. . A1 and A6: The absence of p63 plus high molecular weight cytokeratin in the regions of interest supports an interpretation of invasive prostatic adenocarcinoma. . 01 Pathologist provided ICD-10: C61, R33.9 . 01 CPT . 076939, [id number] Specimen Comment: A courtesy copy of this report has been sent to [phone] Performed at: 01 [facility] [address] [place] [address], [place], [place] [id number] MD Ed Rodriguez MD Phone: [phone]
[2022-04-30] MEDS: SODIUM CHLORIDE IRRIG SOLUTION 500 ML, NEOMYCIN/POLYMYXIN B IRR 1 ML IRR (07:05)
[2022-04-30 07:07] LABS: Hematocrit 37.8 % (41-53); Hemoglobin 12.8 g/dL (13.5-17.5)
[2022-04-30] MEDS: LACTATED RINGERS 1,000 ML 21 ML IV (07:08)
[2022-04-30 07:33] LABS: BUN Creatinine Ratio 15.6 (6-22); Blood Urea Nitrogen 15 mg/dL (9-20); Calcium 8.5 mg/dL (8.4-10.2); Carbon Dioxide 21 mmol/L (22-32); Chloride 109 mmol/L (98-107); Estimated Glomerular Filt Rate > 60 mL/min (>60); Glucose 96 mg/dL (80-110); HEMOLYSIS < 15 (0-50); Potassium 4.2 mmol/L (3.4-5.1); Sodium 140 mmol/L (137-145)
--- NOTE | 2022-04-30 07:33 | PM.PREOP ---
Pre-operative Note COVID-19 Criteria for continued procedure: Expected advancement of disease process, Deterioration of the patient's condition or overall health, Delay expected to result in less-positive ultimate med/surg outcome and Non-surgical alternatives not available or appropriate per current SOC Interval Note History & Physical reviewed/Exam performed by Physician: Yes Changes to H&P: No
[2022-04-30] MEDS: levoFLOXacin 500 MG/100 ML PIGGYBACK 100 MG IV (08:30)
--- NOTE | 2022-04-30 08:37 | SUR.OPER ---
Supine on padded OR bed, head on pillow, arms secured on padded arm boards at <90 degrees abduction, legs uncrossed, safety belt at thigh, tape over blanket over lower legs.
[2022-04-30] MEDS: BUPIVACAINE 0.5% (PF) 30 ML, EPINEPHrine 0.15 MG INJ (08:42)
[2022-04-30] MEDS: BUPIVACAINE LIPOSOME 266 MG/20 ML VIAL INJ (08:43)
[2022-04-30] MEDS: ACETAMINOPHEN IV 1,000 MG/100 ML VIAL 400 MG IV (08:45)
[2022-04-30] MEDS: LACTATED RINGERS 1,000 ML 43 ML IV ×2 (08:47→10:23)
--- NOTE | 2022-04-30 10:46 | PM.OP.1 ---
Operative Date/Time/Diagnoses Date of procedure: 04/30/22 Time of procedure: 10:20 Pre-op diagnosis: 1. Urinary retention. 2. Failure of multiple voiding trials on medical therapy. Post-op diagnosis: same Procedure & Clinicians Procedure: 1. Simple open prostatectomy. Same procedure as scheduled: Yes Indications: 1. Urinary retenti. 2. Failure multiple voiding trials on medical therapy. Surgeon: Anastasia Oviedo Bunch Breaker Machine Operator: Constanza Damon Click Yes if Unassisted: No Anesthesia Type: General, Spinal (Duramorph spinal) and Local (0.5% Marcaine as well as 1.33% Exparel.) Operative Notes Findings: 1. Normal midline lower abdominal wall tissue and fascial planes. 2. Thickened bladder wall. 3. Marked intravesical protrusion of prostate median lobe. Closure Type: primary Specimen(s): other (Prostate adenoma) Applied: catheter (22 Dominican three-way hematuria catheter to gravity drainage.) Estimated Blood Loss (mL): 250 Blood products transfused: none Procedure in detail: The patient was provided successful placement of Duramorph spinal anesthesia. He was then repositioned in supine and administered general anesthesia. The abdomen, genitalia, and groin were then prepped and draped in sterile fashion. A 22 Dominican Magdaleno catheter was then certain lower urinary track and the bladder was then filled to 300 cc with sterile saline. The catheter was clamped. A midline infraumbilical incision was then made. Sharp blunt and cautery dissection were used to divide the layers of the midline lower abdominal wall to enter the space of Retzius and pelvic retroperitoneum. Fat adherent to the anterior bladder wall and dome were then reflected posteriorly. 0.5% Marcaine was then used to infiltrate the midline bladder wall from dome to bladder neck. A cystotomy was then created along the full length. The bladder contents were drained via suction. A solution of 0.5% Marcaine was then used to infiltrate the bladder neck circumferentially. Both ureteral orifice ease were identified prior to bladder neck dissection and were approximately 1 cm proximal to the bladder neck incision. The cautery pen was then use to create a circumferential incision around the bladder neck and extending along the posterior margin of the protruding intravesical median lobe. Further cautery dissection was carried out to divide the layers of the bladder neck posteriorly. The surface of the adenoma was then identified. The appropriate plane was then entered and extended circumferentially around the adenoma. An 0 Vicryl suture was used to control and mobilize the adenoma as the dissection progressed. Index finger was then used to separate the anterior septum by placing pressure against the pubic symphysis. The fibers of the urethra just distal the prostatic apex were then carefully divided bluntly. The prostate adenoma was then handed off the field to be submitted to pathology for routine gross and microscopic examination. Prostate fossa was then packed with a lap sponge for approximately 5 minutes. Lap sponge was then removed and careful placement of interrupted [id number] sutures were utilized to reconstruct the bladder neck and for hemostasis. The ureteral orifices were identified in this process and avoided. A [address] hematuria catheter was then advanced through the urethral meatus and into the bladder lumen under direct visualization and manual guidance. The cystotomy was then closed in 2 layers. An inner running intermittently locking layer of 2-0 Monocryl encompassing the mucosa muscular portion, followed by running, Lembert, vertical mattress for the seromuscular layer. Catheter balloon was then inflated to 30 cc. The catheter was then vigorously hand irrigated to light pink. It was then placed to gravity drainage. A 15 Dominican Raf drain was then positioned in the space of Retzius and brought out through a separate stab incision to the right of the midline incision. A solution of 1.33% Exparel was then used to infiltrate the cutaneous layer of the incision. The rectus fascia was then closed with running 0 PDS beginning at each the superior, and inferior apex and then running each to meet at approximately the midline at which point they were tied to 1 another. The subcutaneous Chris's fascia was closed with running 2-0 Vicryl. The skin was reapproximated with a running subcuticular 4-0 Monocryl. The drain was secured to the skin with 2-0 silk using a Reno sandal technique in usual fashion. The drain was placed to bulb self suction. The patient was then awakened, transferred to [facility], and then transported recovery in stable condition. Complications: none Post-operative Condition: stable Disposition: Acute Care Plan for aftercare: Admit to acute care
[2022-04-30] MEDS: LACTATED RINGERS 1,000 ML 125 ML IV (12:20)
[2022-04-30] MEDS: TAMSULOSIN 0.4 MG CAPSULE PO (20:07)
[2022-04-30] MEDS: ATORVASTATIN 20 MG TABLET 40 MG PO (20:22)
[2022-04-30] MEDS: ACETAMINOPHEN 325 MG TABLET 650 MG PO (22:00)
[2022-05-01] MEDS: LACTATED RINGERS 1,000 ML 125 ML IV (03:51)
[2022-05-01] MEDS: ACETAMINOPHEN 325 MG TABLET 650 MG PO ×2 (03:52→14:09)
[2022-05-01] MEDS: LEVOTHYROXINE 50 MCG TABLET PO (05:26)
[2022-05-01 05:29] VITALS: BP 136/80; PULSE 85; RESP 19; TEMP 36.6; O2SAT 98
--- NOTE | 2022-05-01 07:47 | PM.PN.1 ---
Subjective Subjective Date Patient Seen: 05/01/22 Time Patient Seen: 07:00 Interval history: The patient is postop day 1 status post simple open prostatectomy for urinary retention. He reports signs and symptoms consistent with bladder spasms. He denies incisional pain. He is taking only Tylenol. He is tolerating p.o.. He is had 2 small bowel movements. Exam Vital Signs (past 8 hours): - 05/01/22 05:29 Temperature 97.8 F Pulse Rate 85 Respiratory Rate 19 Blood Pressure 136/80 Pulse Oximetry 98 Oxygen Flow Rate 0 Oxygen Delivery Method Room Air Oxygen Flow Rate 0 Narrative Exam Narrative: The patient is sitting upright in bed and in no distress. Chest-equal and unlabored expansion bilaterally. Heart-normal sinus rhythm. Abdomen-dressings and SAURAV drain are intact. Magdaleno catheter-inflows at slow drip rate in outflow is light pink tinged without clots. Objective Labs Result Diagrams: 04/30/22 06:43 04/30/22 06:43 Labs: Laboratory Results - last 24 hr 04/30/22 06:43 Blood Type O Negative Antibody Screen Negative [facility] Medical History (Updated 04/25/22 @ 09:12 by Shreya Reece RN) Acquired hypothyroidism Balanitis BPH w urinary obs/LUTS Cataracts, bilateral Cerebrovascular disease Chronic anticoagulation Elevated PSA Glaucoma Hearing loss High prostate specific antigen (PSA) HLD (hyperlipidemia) Mixed hyperlipidemia Obesity (BMI 30.0-34.9) Paroxysmal atrial fibrillation TIA (transient ischemic attack) Urinary catheter in place (04/2022) Urinary retention Surgical History (Updated 04/25/22 @ 09:09 by Shreya Reece RN) History of cataract removal with insertion of prosthetic lens (~2017) History of vitrectomy (~2017) Family History Father Stroke Mother History of heart disease Social History number of children: 2 household members: spouse Smoking Status: Never smoker alcohol intake: current Type(s) of exercise: other frequency: daily Assessment & Plan Assessment & Plan narrative: Assessment: 1. Stable postoperative day #1 for urinary retention. 2. Pathology pending. Plan: 1. Increase diet and activity today. 2. Plug 3 way Magdaleno catheter inflow and leave outflow to gravity drainage. 3. Encourage liberal fluid consumption. 4. Follow-up pathology when final. Time Spent With Patient Critical Care time: I spent a total of [] minutes of critical care time on this patient's care today; this time is exclusive of procedural time. Quality VTE Deep Vein Thrombosis/Pulmonary Embolism Present on Admission: No
[2022-05-01 08:45] VITALS: BP 120/68; PULSE 91; RESP 18; TEMP 35.9; O2SAT 98
[2022-05-01] MEDS: DORZOLAMIDE/TIMOLOL OPHTH 10 ML 1 DROPS EYE-BOTH ×2 (10:00→20:46)
[2022-05-01] MEDS: TAMSULOSIN 0.4 MG CAPSULE PO ×2 (10:02→20:46)
--- NOTE | 2022-05-01 11:24 | CM.DANOTE ---
DCP: Case received, EMR reviewed and met with patient. Introduced self and role. Was able to obtain information regarding patient's baseline activity status prior to hospitalization. DCP assessment completed with information currently available. Patient is a 77 year old male who admitted yesterday morning to the care of the urologist. PCP: Dr. Aldana. Payer: confirmed: Medicare. Patient came to the hospital via private vehicle for a surgical procedure. Patient had a simple open Prostatectomy. Patient has history of urinary retention. Patient currently has emery cath. Met with patient in his room. He was ambulating independently, catheter in place. He is alert and oriented. Patient resides with spouse, Sandra, here in [place]. She had been at bedside earlier. P: DCP to continue to follow. Plan is home when stable, will go with catheter and follow up at urology office. Renea Link RN/Railroad Surveyor Discharge Planning/Care Management CM Discharge Assessment Start: 05/01/22 11:23 Freq: Status: Active Protocol: Document 05/01/22 11:23 (Rec: 05/01/22 11:24 [id number]) Discharge Planning Assessment Assigned Benzene Still Utility Operator Renea Link RN/Railroad Surveyor Advance Directives? Yes Advance Directives on File No History Provided By Patient,Medical Record Prior Living Arrangements House Household Members spouse Type of transporation used prior to Drives own vehicle admit Independent with ADL's Yes Is patient alert and oriented? Yes Caregiver for Another No Discharge Plan Home Transportation Arrangement Spouse POV Referrals Initiated None needed Whiteboard Updated in Patient Room with Yes name and ext. # of Benzene Still Utility Operator Review Status In Process Next Review Type Continued Stay Review Pre-Anesthesia Assessment Start: 04/25/22 08:27 Freq: Status: Complete Protocol: Document 04/25/22 08:27 [facility] (Rec: 04/25/22 09:21 [id number]) Pre-Anesthesia Assessment Preferred Name Pantera Comment COVID screen @ 04/27/22 Primary Care Provider Ja Aldana Seen Specialist in Last 12 Months Yes Specialist Seen Emergency,Urologist Primary Language Tristanian Preferred Language Tristanian Motorcycle Police Required No Height 5 ft 10 in Weight 220 lb Body Mass Index (BMI) 31.5 Hearing Ability Hearing Impaired,Use of Hearing Aid Visual Assist Magnifying Glass Dentition Type Teeth, Natural Present,Dental Implants Barriers to Learning None Hx Anesthesia Reactions No Hx Family Anesthesia Reaction No Hx Malignant Hyperthermia No Hx Blood Transfusions No Anesthesia Review Requested No alcohol intake current alcohol intake frequency a few times a week Smoking Status Never smoker Substance Use Type does not use Pain Present Pain Reported Comment Right shoulder pain Musculoskeletal Symptoms Joint Pain History of Falling (Recent or History of No ) Patient is completely paralyzed or No completely immobile Mental Status Oriented to own ability Is patient on oxygen? No Does patient have DRAKE/SOB No Hx Sleep Apnea No Currently Taking a Beta Richard No Hx Chest Pain No Hx SOB No Hx Syncope or Dizziness No Anti-Coagulant Therapy Yes: Eliquis-will hold 04/27, Lovenox bridge per Dr. Aldana Has a Transition Teacher No Cardiac Testing Yes: Nuc stress @ [facility] 02/22/22 for pre-op clearance Hx Pacemaker/ICD No Pacemaker Rep Required? No Diet Type At Home Regular Dysphagia No Gastrointestinal Symptoms None Bladder Pattern Retention Urinary Catheter Present Yes Hx Urinary Self Catheterization Yes Diabetes No Hx Drug Resistant Organism No Presence of External or Internal Medical Yes: Bilat eye IOLs, hearing Devices aids Have you had any close contact with No someone diagnosed with COVID-19? Received a COVID vaccine? Yes Received all doses? Yes Marital Status Lives With spouse Current Living Arrangements House Support System Child/Children,Spouse Does the Patient Have Assistance After Yes: Daughter lives close will [facility] Patient Discharge Plan Description Return Home Comment Pt advised 2 night length of stay per surgeon Feels Safe in Current Environment Yes Been Physically Hurt or Threatened By a No Person in Current Environment Do you have thoughts of harming yourself None or others? Are you currently considering suicide? No Do you have a plan to hurt yourself or No Plan others? Do You Have Any Spiritual Beliefs That No May Affect Your HC Choices? Do You Have Any Cultural Practices That No May Affect Your HC Choices? Who Can We Speak to About Patient's Care Family, friends Identifying Code for Release of Patient Declines to issue Information Health Care Proxy/Next of Kin Sandra () Health Care Proxy Phone Number (Home) ) Emergency Contact Name Sandra Almendarez Emergency Contact Phone Number (Home) ) Advance Directives? No Power of Yarrow Gatherer Yes Power of Yarrow Gatherer Name Sandra Almendarez Power of Yarrow Gatherer Phone Number (Home) ) PAC Instructions Medications to take/avoid,No ETOH/petroleum product on skin DOS,NPO,Post-op transportation,Sensory aids, Sturdy shoes/comfortable clothes,Do not bring valuables and remove jewelry
[2022-05-01] MEDS: ENOXAPARIN 100 MG/ML SYRINGE SUBCUT (12:10)
[2022-05-01] MEDS: INFLUENZA HD VACCINE 0.7 ML SYRINGE IM (12:15)
[2022-05-01 13:15] VITALS: BP 155/72; PULSE 92; RESP 16; TEMP 35.8; O2SAT 100
--- NOTE | 2022-05-01 14:03 | DI.CT.S_ITS ---
PROCEDURE: CT PEL WO CON INDICATIONS: urinary retention TECHNIQUE: Noncontrast 3 mm axial sections acquired through the bony pelvis, with coronal and sagittal reformatting. COMPARISON: None. FINDINGS: Image quality: Excellent. Bones: Osteoarthritic changes are noted throughout bony pelvis. No fracture or dislocation. No suspicious intraosseous lesion. No evidence of avascular necrosis of femoral head. Degenerative disc disease in visualized lower lumbar spine is seen. No acute compression fracture or spondylolisthesis. Soft tissues: Magdaleno catheter is seen in a decompressed urinary bladder. Small amount of air is seen within bladder lumen most likely represent iatrogenic air from Magdaleno catheter insertion. Questionable diffuse bladder wall thickening, no discrete bladder wall mass. Mild pericystic fat stranding is noted, cystitis cannot be excluded. There is a catheter seen in lower pelvis with the tip noted anterior inferior to the urinary bladder just dorsal to symphysis pubis. Several pockets of peritoneal free air in lower pelvis is seen likely represent iatrogenic air. No pelvic free fluid. No abnormal bowel wall thickening or mesenteric fat stranding. No discrete drainable abscess collection. No pelvic lymphadenopathy is noted by size criteria. IMPRESSION: 1. Magdaleno catheter within decompressed urinary bladder. Questionable bladder wall thickening and pericystic fat stranding concerning for cystitis. No definite bladder wall mass is seen. 2. Right-sided drainage catheter in suprapubic region as above. Small amount of peritoneal free air likely represent iatrogenic air. No discrete drainable abscess collection. No bowel obstruction or gross abnormal bowel wall thickening. 3. Osteoarthritic changes throughout bony pelvis. Degenerative disc disease in lower lumbar spine. No suspicious bony lesions. No fracture or dislocation. Dictated by: Gigi Burgess M.D. on 05/01/2022 at 15:21 Approved by: Gigi Burgess M.D. on 05/01/2022 at 15:26
[2022-05-01] MEDS: OXYCODONE IR 5 MG TABLET PO ×2 (14:08→18:13)
[2022-05-01 16:59] VITALS: BP 137/73; PULSE 86; RESP 18; TEMP 36.2; O2SAT 99
[2022-05-01] MEDS: ATORVASTATIN 20 MG TABLET 40 MG PO (20:46)
[2022-05-01] MEDS: LATANOPROST 0.005% OPHTH 2.5 ML 1 DROPS EYE-BOTH (20:46)
[2022-05-01] MEDS: SODIUM CHLORIDE 0.9% FLUSH 10 ML IV (20:47)
[2022-05-01 22:30] VITALS: BP 144/81; PULSE 82; RESP 16; TEMP 37.3; O2SAT 100
[2022-05-02] MEDS: ENOXAPARIN 100 MG/ML SYRINGE SUBCUT (00:01)
[2022-05-02] MEDS: OXYCODONE IR 5 MG TABLET PO (01:02)
--- NOTE | 2022-05-02 01:24 | PC.NURSE ---
Patient is alert and oriented. Breath sounds CTA with RA sat of 100%. HRR w/BP of 144/81. Denies nausea. BT present but tympanic soundsing and abdomen is soft; reports having liquid stool previous shift. Dressing to lower abdomen intact with spotty serosanguinous drainage. SAURAV is intact and compressed w/serosanguinous drainage. Indwelling catheter is patent; urine is dark red with several small clots noted; does have some urine leaking from penis. Is independent with mobility. Refused SCD's; reminded to ankle wave when awake. Did complain of penile pain and was medicated with oxycodone. Fall risk score is low.
[2022-05-02 04:00] VITALS: BP 141/68; PULSE 83; RESP 18; TEMP 36.9; O2SAT 98
[2022-05-02] MEDS: LEVOTHYROXINE 50 MCG TABLET PO (06:27)
--- NOTE | 2022-05-02 07:42 | PM.DS.1 ---
History of Present Illness History of Present Illness Date Patient Seen: 05/02/22 Time Patient Seen: 07:10 Chief complaint: Simple open Prostatectomy Narrative: Pantera is a 77-year-old gentleman admitted on 04/30/2022, for urinary retention and failure medical therapy. Discharge Providers Provider Date of admission: 04/30/22 06:13 Discharge Date: 05/02/22 Primary care physician: Ja Aldana MD Discharge provider: Anastasia Oviedo MD Summary Hospital Course Discharge Diagnosis: 1. Urinary retention. Hospital Course: The patient was admitted on 04/30/2022 and underwent uncomplicated simple open prostatectomy under Duramorph spinal and general anesthesia. His postop course was uneventful. He tolerated general diet beginning the the evening postoperatively. He had return of bowel function within hours of surgery. He was able to ambulate without assistance on the 1st postoperative morning. On the morning of 05/02/2022 the patient was stable for discharge. Routine post prostatectomy activity, hygiene, driving and wound care instructions were provided. Pathology is pending at discharge. Exam Vital Signs (past 8 hours): - 05/02/22 04:00 Temperature 98.5 F Pulse Rate 83 Respiratory Rate 18 Blood Pressure 141/68 H Pulse Oximetry 98 Oxygen Flow Rate 0 Oxygen Delivery Method Room Air Oxygen Flow Rate 0 Narrative Exam Narrative: Patient is awake alert and ambulating about the room and in no distress. Abdomen-protuberant and soft. Mild incisional tenderness. Dressing and SAURAV drain intact. The latter with scant serosanguineous output. Extremities-no edema, cyanosis, or pallor. Magdaleno-intact draining light maroon colored drainage without clot. 10 cc were removed from the catheter balloon at the bedside. Objective Labs Result Diagrams: 04/30/22 06:43 04/30/22 06:43 [facility] Medical History (Updated 04/25/22 @ 09:12 by Shreya Reece RN) Acquired hypothyroidism Balanitis BPH w urinary obs/LUTS Cataracts, bilateral Cerebrovascular disease Chronic anticoagulation Elevated PSA Glaucoma Hearing loss High prostate specific antigen (PSA) HLD (hyperlipidemia) Mixed hyperlipidemia Obesity (BMI 30.0-34.9) Paroxysmal atrial fibrillation TIA (transient ischemic attack) Urinary catheter in place (04/2022) Urinary retention Surgical History (Updated 04/25/22 @ 09:09 by Shreya Reece RN) History of cataract removal with insertion of prosthetic lens (~2018) History of vitrectomy (~2017) Family History Father Stroke Mother History of heart disease Social History number of children: 2 household members: spouse Smoking Status: Never smoker alcohol intake: current Type(s) of exercise: other frequency: daily Discharge Assessment & Plan Assessment and Plan Assessment: 1. Stable postoperative day 2 status post simple open prostatectomy. 2. Indwelling Magdaleno catheter at discharge. 3. Pathology pending. Plan of Treatment: 1. Discharge home today. 2. Outpatient follow-up in approximately 2 weeks for supervised voiding trial will be scheduled through the [facility]. 3. Follow-up discussion regarding final surgical pathology with patient when available. Discharge Plan Discharge Plan Patient Disposition: Home Provider Discharge Comment: Please contact Urology Clinic to schedule outpatient follow-up appointments. You may restart Eliquis beginning 05/03/2022. Discharge orders & Medications Prescriptions: New oxycodone 5 mg Tablet 5 mg PO Q4H PRN (Reason: Pain, Moderate (4-6)) Qty: 15 0RF ciprofloxacin HCl 250 mg tablet 250 mg PO Q12H Qty: 6 0RF Rx Instructions: Begin the day before scheduled catheter removal as directed. Continued latanoprost [Xalatan] 0.005 % drops 1 drp OU BEDTIME Qty: 0 dorzolamide-timolol 22.3-6.8 mg/mL drops 1 drp EYE-BOTH BID Label Comments: INSTILL 1 DROP IN BOTH EYES TWICE DAILY Eliquis 5 mg tablet 5 mg PO BID Qty: 180 3RF atorvastatin 40 mg tablet 40 mg PO DAILY Qty: 90 3RF levothyroxine 50 mcg capsule 50 mcg PO DAILY Qty: 90 1RF Discontinued tamsulosin [Flomax] 0.4 mg capsule 0.4 mg PO BID Qty: 60 5RF Rx Instructions: Take one at mid-morning and one at bedtime enoxaparin 100 mg/mL syringe 100 mg SUBCUT Q12H Qty: 10 0RF ciprofloxacin HCl 250 mg tablet 250 mg PO BID Qty: 10 0RF Rx Instructions: Take 1 tablet approximately every 12 hours beginning in the morning of 04/26/2022. Follow up/Referrals: Ja Aldana MD [Primary Care Provider] - Diet/Activity/Treatments Diet: Diet as Tolerated Activity: Do not lift objects greater than 15 lb x 4 weeks. No driving x2 weeks. Catheter: 2-way Magdaleno Catheter comment: Use large bag in-home and at night. Use leg bag when out of home. Skin/Wound/Dressing Care Report to your healthcare provider any signs of infection, such as:: chills, fever, night sweats, increased pain, unusual drainage and unusual redness Other wound treatment: May shower daily. No submersion in water x2 weeks. Leave incision open to air. Visit Report/Discharge Packet Instructions: DI for Prescription Opioid Use Stand Alone Forms: Surgery Discharge Discharge Data Primary Care Provider: Ja Aldana V Quality VTE Deep Vein Thrombosis/Pulmonary Embolism Present on Admission: No
[2022-05-02] MEDS: TAMSULOSIN 0.4 MG CAPSULE PO (08:25)
[2022-05-02] MEDS: DORZOLAMIDE/TIMOLOL OPHTH 10 ML 1 DROPS EYE-BOTH (08:25)
--- NOTE | 2022-05-02 10:15 | PC.NURSE ---
08:00 J/P drain removed and tolerated well, abdominal dressing removed and incision left open to air.
== END 2022-05-02 09:52 | disposition home or self-care (01) | DRG 717 ==
PROVIDERS: Admitting Provider Specialist; Family Provider Internal Medicine; PCP Internal Medicine; Referring Provider Specialist; Visit Provider Specialist
PROC: 0VT00ZZ Resection of Prostate, Open Approach (ICD-10-PCS; principal; 2022-04-30 07:45)
DX: N40.1 Benign prostatic hyperplasia with lower urinary tract symptoms (principal); N13.8 Other obstructive and reflux uropathy; E78.5 Hyperlipidemia, unspecified; E03.9 Hypothyroidism, unspecified; Z20.822 Contact with and (suspected) exposure to COVID-19; Z23 Encounter for immunization
CPT/HCPCS: 55821; 72192; 80048; 82962; 85014; 85018; 86850; 86900; 86901; 87635; 90471; 90662; C9803; C9290; J0131; J0171; J0330; J1650; J1956; J2274; J2405; J2704; J3010

== ENCOUNTER → 2022-05-29 09:00 | Outpatient (CLI) | payer MEDICARE, SELFPAY ==
[2022-04-30 06:31] VITALS: BMI 31.1
[2022-05-29 10:56] LABS: Prostate Specific Antigen 0.511 ng/mL (0.10-4.00)
== END ==
PROVIDERS: Family Provider Internal Medicine; PCP Internal Medicine; Referring Provider Specialist; Visit Provider Specialist
DX: R97.20 Elevated prostate specific antigen [PSA] (principal)
CPT/HCPCS: 36415; 84153

== ENCOUNTER → 2022-06-05 10:54 | Outpatient (CLI) | payer MEDICARE, SELFPAY ==
[2022-04-30 06:31] VITALS: BMI 31.1
== END ==
PROVIDERS: Family Provider Internal Medicine; PCP Internal Medicine; Visit Provider Specialist
DX: N40.1 Benign prostatic hyperplasia with lower urinary tract symptoms (principal); N13.8 Other obstructive and reflux uropathy
CPT/HCPCS: 87077; 87086; 87147; 87186

== ENCOUNTER → 2022-06-05 11:24 | Outpatient (CLI) | payer MEDICARE, SELFPAY ==
[2022-04-30 06:31] VITALS: BMI 31.1
[2022-06-05 15:16] LABS: Free T4, Direct Thyroxine 0.98 ng/dL (0.78-2.19)
== END ==
PROVIDERS: Family Provider Internal Medicine; PCP Internal Medicine; Referring Provider Internal Medicine; Visit Provider Internal Medicine
DX: C61 Malignant neoplasm of prostate (principal); E03.9 Hypothyroidism, unspecified; N13.8 Other obstructive and reflux uropathy; N39.0 Urinary tract infection, site not specified; R31.9 Hematuria, unspecified
CPT/HCPCS: 36415; 51798; 81002; 84439; 84443; 87077; 87086; 87147

== ENCOUNTER 2022-06-20 07:30 | Outpatient (RCR) | payer MEDICARE, SELFPAY ==
[2021-12-28 14:52] VITALS: BMI 32.7
--- NOTE | 2022-04-03 11:02 | PT.OIE ---
Current Diagnoses Other obstructive and reflux uropathy (04/03/22) Benign prostatic hyperplasia with lower urinary tract symptoms (04/03/22) Retention of urine, unspecified (04/03/22) Past Medical History (Last Reviewed 02/09/22 @ 11:03 by Ja Aldana MD) Acquired hypothyroidism Balanitis BPH w urinary obs/LUTS Cataracts, bilateral Cerebrovascular disease Chronic anticoagulation Elevated PSA Glaucoma Hearing loss High prostate specific antigen (PSA) Mixed hyperlipidemia Obesity (BMI 30.0-34.9) Paroxysmal atrial fibrillation Urinary retention Past Surgical History (Last Reviewed 02/09/22 @ 11:03 by Ja Aldana MD) History of cataract removal with insertion of prosthetic lens (~2018) History of vitrectomy (~2017) Visit Care Team Role Provider Type Ja Aldana MD Family Provider Physician Primary Care Provider Specialty: Internal Medicine Address: [address] [place] [address] Email: [email or web address] Anastasia Oviedo MD Attending Provider Physician Referring Provider Specialty: Urology Address: [address] [place] [address], [facility] Email: Physical Therapy Initial Evaluation PT-OP-A Visit Information Start: 03/30/22 11:56 Freq: Status: Active Protocol: Document 04/03/22 08:15 AMB (Rec: 04/03/22 22:11 AMB [id number]) Out-Patient Physical Therapy Visit Information Visit Information Visit Type Initial Evaluation Visit Start Time 08:15 Visit Stop Time 09:00 Total Visit Minutes 45 Visit Number 1 PT-OP-B Current Condition Start: 03/30/22 11:56 Freq: Status: Active Protocol: Document 04/03/22 08:25 AMB (Rec: 04/03/22 09:03 AMB [id number]) Current Condition History of Current Condition Onset Date November 2019/ surgery scheduled April Current Complaints upcoming prostate surgery History of Current Condition Pantera realized he couldn't initiate urination in November. Before that time, he was getting up to urinate 3-4x/ night before that. During the day was going every 3 hours. Darker yellow urine. Currently catheterized. Planning surgery, no leaking before being catheterized. Personal Factors Other Personal Factors That May Effect Afib, chronic anticoag, Therapy/Recovery Glaucoma PT-OP-I Pelvic Floor Start: 03/30/22 11:56 Freq: Status: Active Protocol: Document 04/03/22 08:15 AMB (Rec: 04/03/22 22:11 AMB [id number]) Pelvic Floor Assessment Urine Pelvic Floor Surgery Yes: scheduled Other Urinary Symptoms Currently no leaking, indwelling catheter due to inability to void Pelvic Clock Inter-Rectal Assessment With heavy verbal and physical cueing pt was able to contract rectally for 4 seconds, cued to avoid breath holding and co contraction. Contraction Ability Voluntary Contraction Weak Voluntary Relaxation Moderate Muscle Endurance (Seconds) 4 Number of Quick Contractions In 10 4 Seconds Comments Pelvic Floor Comments Pt denies numbness/tingling/ back pain hx PT-OP-T Assessment and Plan Start: 03/30/22 11:56 Freq: Status: Active Protocol: Document 04/03/22 08:15 AMB (Rec: 04/03/22 22:11 AMB [id number]) Physical Therapy Assessment Rehab Potential Rehabilitation Potential Good Evaluation Complexity Number of Personal Factors/Comorbidities 1-2 Number of Body Systems Impaired 3 Clinical Presentation at Evaluation Stable Impairments Impairments Activity Tolerance,Functional Activities,Strength Goals Two Impairment Continence Short Term Goal (STG) Pantera will move from sit to stand without leaking urine. STG Duration 6 weeks Retirement Goal (LTG) Pantera will stand for 30 minutes to cook a meal without leaking urine. LTG Duration 12 weeks One Impairment Pelvic floor strength Short Term Goal (STG) Pantera will be independent with a pelvic floor exercise program. STG Duration 6 weeks Retirement Goal (LTG) Pantera will move from sit to stand while maintaining his pelvic floor contraction. LTG Duration 12 weeks Assessment Summary Assessment Pantera attends physical therapy prior to surgery for BPH, with an indwelling catheter since November. Considering his fairly significant pelvic floor weakness and the length of time he has been catheterized, I am concerned about his incontinence after surgery. He was instructed in a HEP for pelvic floor strengthening and will benefit from continued physical therapy after his surgery as well. Physical Therapy Plan Frequency and Duration Frequency of Treatment 1x/Week Duration of treatment (weeks) 12 Plan of Care Start Date 04/03/22 Plan of Care End Date 06/26/22 Therapeutic Interventions Therapeutic Interventions Home Exercise Program,Manual Therapy,Neuromuscular Re- education,Self-Care/Home Management,Therapeutic Activities,Therapeutic Exercises Modalities Biofeedback,Electric Stimulation Next Visit Focus/Plan Next Note Type Re-Evaluation Next Visit Plan RE-evaluate continence after surgery/ begin sEMG
--- NOTE | 2022-04-03 11:04 | PT.OPPOC ---
Physical, Occupational & Speech Therapy At [facility] Current Diagnoses Other obstructive and reflux uropathy (04/03/22) Benign prostatic hyperplasia with lower urinary tract symptoms (04/03/22) Retention of urine, unspecified (04/03/22) Visit Care Team Role Provider Type Ja Aldana MD Family Provider Physician Primary Care Provider Specialty: Internal Medicine Address: [address] [place] [address], [id number] Email: [email or web address] Anastasia Oviedo MD Attending Provider Physician Referring Provider Specialty: Urology Address: [address] [place] [address], [id number] Email: Plan Of Care PT-OP-T Assessment and Plan Start: 03/30/22 11:56 Freq: Status: Active Protocol: Document 04/03/22 08:15 AMB (Rec: 04/03/22 22:11 AMB [id number]) Physical Therapy Assessment Rehab Potential Rehabilitation Potential Good Evaluation Complexity Number of Personal Factors/Comorbidities 1-2 Number of Body Systems Impaired 3 Clinical Presentation at Evaluation Stable Impairments Impairments Activity Tolerance,Functional Activities,Strength Goals Two Impairment Continence Short Term Goal (STG) Pantera will move from sit to stand without leaking urine. STG Duration 6 weeks Mcfp Goal (LTG) Pantera will stand for 30 minutes to cook a meal without leaking urine. LTG Duration 12 weeks One Impairment Pelvic floor strength Short Term Goal (STG) Pantera will be independent with a pelvic floor exercise program. STG Duration 6 weeks Penetration Tester Goal (LTG) Pantera will move from sit to stand while maintaining his pelvic floor contraction. LTG Duration 12 weeks Assessment Summary Assessment Pantera attends physical therapy prior to surgery for BPH, with an indwelling catheter since November. Considering his fairly significant pelvic floor weakness and the length of time he has been catheterized, I am concerned about his incontinence after surgery. He was instructed in a HEP for pelvic floor strengthening and will benefit from continued physical therapy after his surgery as well. Physical Therapy Plan Frequency and Duration Frequency of Treatment 1x/Week Duration of treatment (weeks) 12 Plan of Care Start Date 04/03/22 Plan of Care End Date 06/26/22 Therapeutic Interventions Therapeutic Interventions Home Exercise Program,Manual Therapy,Neuromuscular Re- education,Self-Care/Home Management,Therapeutic Activities,Therapeutic Exercises Modalities Biofeedback,Electric Stimulation Next Visit Focus/Plan Next Note Type Re-Evaluation Next Visit Plan RE-evaluate continence after surgery/ begin sEMG Plan of Care Dates Plan of Care Start Date 04/03/22 Plan of Care End Date 06/26/22 Electronically Signed by: Shy Hoyos, PT 04/08/22 [id number] If you are in agreement with this Plan of Care, please return a signed and dated copy. I have reviewed this Plan of Care and certify that the skilled therapy services above are required to meet the patient?s needs. Physician Signature Date Printed Name and Credentials Clinical Instructor Signature Printed Name and Credentials
--- NOTE | 2022-05-15 13:52 | PT.OPPOC ---
Physical, Occupational & Speech Therapy At [facility] Current Diagnoses Other obstructive and reflux uropathy (05/15/22) Benign prostatic hyperplasia with lower urinary tract symptoms (05/15/22) Retention of urine, unspecified (05/15/22) Visit Care Team Role Provider Type Ja Aldana MD Family Provider Physician Primary Care Provider Specialty: Internal Medicine Address: [address] [place] [address], [id number] Email: [email or web address] Anastasia Oviedo MD Attending Provider Physician Referring Provider Specialty: Urology Address: [address] [place] [address], [id number] Email: Plan Of Care PT-OP-T Assessment and Plan Start: 03/30/22 11:56 Freq: Status: Active Protocol: Document 05/15/22 08:23 AMB (Rec: 05/15/22 09:02 AMB [id number]) Physical Therapy Assessment Goals Two Impairment Continence Short Term Goal (STG) Pantera will move from sit to stand without leaking urine. STG Duration 6 weeks Senior Care Goal (LTG) Pantera will stand for 30 minutes to cook a meal without leaking urine. LTG Duration 12 weeks One Impairment Pelvic floor strength Short Term Goal (STG) Pantera will be independent with a pelvic floor exercise program. STG Duration 6 weeks Senior Care Goal (LTG) Pantera will move from sit to stand while maintaining his pelvic floor contraction. LTG Duration 12 weeks Assessment Summary Assessment Pantera has had his surgery and is currently catheterized. Will get catheter out later this week and return to therapy next week. Expanded upon HEP and encouraged pt to contract pelvic floor while moving from sit to stand or other activities where he would be exerting himself, ex stairs. Pt to practice this between now and next week, and then agrees to biofeedback assessment if having significant leaking at that time. Physical Therapy Plan Frequency and Duration Frequency of Treatment 1x/Week Duration of treatment (weeks) 9 Plan of Care Start Date 05/15/22 Plan of Care End Date 07/17/22 Therapeutic Interventions Therapeutic Interventions Home Exercise Program,Manual Therapy,Neuromuscular Re- education,Self-Care/Home Management,Therapeutic Activities,Therapeutic Exercises Modalities Biofeedback,Electric Stimulation Next Visit Focus/Plan Next Note Type Treatment Note Next Visit Plan seMG vs exercise progression work on standing, Plan of Care Dates Plan of Care Start Date 05/15/22 Plan of Care End Date 07/17/22 Electronically Signed by: Shy Hoyos, PT 05/17/22 3677 If you are in agreement with this Plan of Care, please return a signed and dated copy. I have reviewed this Plan of Care and certify that the skilled therapy services above are required to meet the patient?s needs. Physician Signature Date Printed Name and Credentials Clinical Instructor Signature Printed Name and Credentials
--- NOTE | 2022-05-15 13:52 | PT.OTRE ---
Current Diagnoses Other obstructive and reflux uropathy (05/15/22) Benign prostatic hyperplasia with lower urinary tract symptoms (05/15/22) Retention of urine, unspecified (05/15/22) Past Medical History (Last Updated 04/25/22 @ 09:12 by Shreya Reece RN) Acquired hypothyroidism Balanitis BPH w urinary obs/LUTS Cataracts, bilateral Cerebrovascular disease Chronic anticoagulation Elevated PSA Glaucoma Hearing loss High prostate specific antigen (PSA) HLD (hyperlipidemia) Mixed hyperlipidemia Obesity (BMI 30.0-34.9) Paroxysmal atrial fibrillation TIA (transient ischemic attack) Urinary catheter in place (04/2022) Urinary retention Surgical History (Last Updated 04/25/22 @ 09:09 by Shreya Reece RN) History of cataract removal with insertion of prosthetic lens (~2017) History of vitrectomy (~2016) Visit Care Team Role Provider Type Ja Aldana MD Family Provider Physician Primary Care Provider Specialty: Internal Medicine Address: [address] [place] [address] Email: [email or web address] Anastasia Oviedo MD Attending Provider Physician Referring Provider Specialty: Urology Address: [address] [place] [address], [facility] Email: Physical Therapy Re-Evaluation PT-OP-A Visit Information Start: 03/30/22 11:56 Freq: Status: Active Protocol: Document 05/15/22 08:23 AMB (Rec: 05/15/22 09:02 AMB [id number]) Out-Patient Physical Therapy Visit Information Visit Information Visit Type Re-Evaluation Visit Start Time 08:15 Visit Stop Time 09:00 Total Visit Minutes 45 Visit Number 2 PT-OP-B Current Condition Start: 03/30/22 11:56 Freq: Status: Active Protocol: Document 04/03/22 08:25 AMB (Rec: 04/03/22 09:03 AMB [id number]) Current Condition History of Current Condition Onset Date November 2019/ surgery scheduled April Current Complaints upcoming prostate surgery History of Current Condition Pantera realized he couldn't initiate urination in November. Before that time, he was getting up to urinate 3-4x/ night before that. During the day was going every 3 hours. Darker yellow urine. Currently catheterized. Planning surgery, no leaking before being catheterized. Personal Factors Other Personal Factors That May Effect Afib, chronic anticoag, Therapy/Recovery Glaucoma PT-OP-C Subjective Start: 03/30/22 11:56 Freq: Status: Active Protocol: Document 05/15/22 08:15 AMB (Rec: 05/17/22 13:51 AMB [id number]) OP-PT Subjective Patient Comments Patient Comments Pt had surgery, for the first week his catheter was leaking a lot but better now, catheter coming out on , has been doing his exercises, but mostly in seated. PT-OP-I Pelvic Floor Start: 03/30/22 11:56 Freq: Status: Active Protocol: Document 04/03/22 08:15 AMB (Rec: 04/03/22 22:11 AMB [id number]) Pelvic Floor Assessment Urine Pelvic Floor Surgery Yes: scheduled Other Urinary Symptoms Currently no leaking, indwelling catheter due to inability to void Pelvic Clock Inter-Rectal Assessment With heavy verbal and physical cueing pt was able to contract rectally for 4 seconds, cued to avoid breath holding and co contraction. Contraction Ability Voluntary Contraction Weak Voluntary Relaxation Moderate Muscle Endurance (Seconds) 4 Number of Quick Contractions In 10 4 Seconds Comments Pelvic Floor Comments Pt denies numbness/tingling/ back pain hx PT-OP-Q Treatments Start: 03/30/22 11:56 Freq: Status: Active Protocol: Document 05/15/22 08:15 AMB (Rec: 05/17/22 13:51 AMB [id number] Therapeutic Exercises Standing Exercises sit to stand Standing Exercise Name contract pelivc floor Comments cue breathing long holds Reps/Minutes 10 Comments in standing, cue gentle relaxation PT-OP-T Assessment and Plan Start: 03/30/22 11:56 Freq: Status: Active Protocol: Document 05/15/22 08:23 AMB (Rec: 05/15/22 09:02 AMB [id number]) Physical Therapy Assessment Goals Two Impairment Continence Short Term Goal (STG) Pantera will move from sit to stand without leaking urine. STG Duration 6 weeks Shelter Goal (LTG) Pantera will stand for 30 minutes to cook a meal without leaking urine. LTG Duration 12 weeks One Impairment Pelvic floor strength Short Term Goal (STG) Pantera will be independent with a pelvic floor exercise program. STG Duration 6 weeks Shelter Goal (LTG) Pantera will move from sit to stand while maintaining his pelvic floor contraction. LTG Duration 12 weeks Assessment Summary Assessment Pantera has had his surgery and is currently catheterized. Will get catheter out later this week and return to therapy next week. Expanded upon HEP and encouraged pt to contract pelvic floor while moving from sit to stand or other activities where he would be exerting himself, ex stairs. Pt to practice this between now and next week, and then agrees to biofeedback assessment if having significant leaking at that time. Physical Therapy Plan Frequency and Duration Frequency of Treatment 1x/Week Duration of treatment (weeks) 9 Plan of Care Start Date 05/15/22 Plan of Care End Date 07/17/22 Therapeutic Interventions Therapeutic Interventions Home Exercise Program,Manual Therapy,Neuromuscular Re- education,Self-Care/Home Management,Therapeutic Activities,Therapeutic Exercises Modalities Biofeedback,Electric Stimulation Next Visit Focus/Plan Next Note Type Treatment Note Next Visit Plan seMG vs exercise progression work on standing,
--- NOTE | 2022-05-22 15:15 | PT.OTN ---
Current Diagnoses Other obstructive and reflux uropathy (05/22/22) Benign prostatic hyperplasia with lower urinary tract symptoms (05/22/22) Retention of urine, unspecified (05/22/22) Physical Therapy Treatment Note PT-OP-A Visit Information Start: 03/30/22 11:56 Freq: Status: Active Protocol: Document 05/22/22 08:17 AMB (Rec: 05/22/22 09:04 AMB [id number]) Out-Patient Physical Therapy Visit Information Visit Information Visit Type Treatment Note Visit Start Time 08:15 Visit Stop Time 09:00 Total Visit Minutes 45 Visit Number 3 PT-OP-B Current Condition Start: 03/30/22 11:56 Freq: Status: Active Protocol: Document 04/03/22 08:25 AMB (Rec: 04/03/22 09:03 AMB [id number]) Current Condition History of Current Condition Onset Date November 2019/ surgery scheduled April Current Complaints upcoming prostate surgery History of Current Condition Pantera realized he couldn't initiate urination in November. Before that time, he was getting up to urinate 3-4x/ night before that. During the day was going every 3 hours. Darker yellow urine. Currently catheterized. Planning surgery, no leaking before being catheterized. Personal Factors Other Personal Factors That May Effect Afib, chronic anticoag, Therapy/Recovery Glaucoma PT-OP-C Subjective Start: 03/30/22 11:56 Freq: Status: Active Protocol: Document 05/22/22 08:17 AMB (Rec: 05/22/22 09:04 AMB [id number]) OP-PT Subjective Patient Comments Patient Comments Has been urinating about 1.5-2 hours between voids. Has been getting up a lot at night . Was doing sit to stand, but noticed increased bleeding. PT-OP-I Pelvic Floor Start: 03/30/22 11:56 Freq: Status: Active Protocol: Document 04/03/22 08:15 AMB (Rec: 04/03/22 22:11 AMB [id number]) Pelvic Floor Assessment Urine Pelvic Floor Surgery Yes: scheduled Other Urinary Symptoms Currently no leaking, indwelling catheter due to inability to void Pelvic Clock Inter-Rectal Assessment With heavy verbal and physical cueing pt was able to contract rectally for 4 seconds, cued to avoid breath holding and co contraction. Contraction Ability Voluntary Contraction Weak Voluntary Relaxation Moderate Muscle Endurance (Seconds) 4 Number of Quick Contractions In 10 4 Seconds Comments Pelvic Floor Comments Pt denies numbness/tingling/ back pain hx PT-OP-Q Treatments Start: 03/30/22 11:56 Freq: Status: Active Protocol: Document 05/22/22 08:17 AMB (Rec: 05/22/22 09:04 AMB [id number]) Therapeutic Exercises Sitting Exercises rolling out Reps/Minutes 10 rolling in Reps/Minutes 10 Standing Exercises sit to stand Standing Exercise Name contract pelivc floor Comments cue breathing PT-OP-T Assessment and Plan Start: 03/30/22 11:56 Freq: Status: Active Protocol: Document 05/22/22 08:17 AMB (Rec: 05/22/22 09:04 AMB [id number]) Physical Therapy Assessment Goals Two Impairment Continence Short Term Goal (STG) Pantera will move from sit to stand without leaking urine. STG Duration 6 weeks Mcfp Goal (LTG) Pantera will stand for 30 minutes to cook a meal without leaking urine. LTG Duration 12 weeks One Impairment Pelvic floor strength Short Term Goal (STG) Pantera will be independent with a pelvic floor exercise program. STG Duration 6 weeks Mcfp Goal (LTG) Pantera will move from sit to stand while maintaining his pelvic floor contraction. LTG Duration 12 weeks Assessment Summary Assessment Pt has been getting up every 2 hours, even at night. Encouraged pt to work on decreasing nocturia. Pt is on anticoagulants and is continuing to notice blood in his urine, felt that blood increased with a lot o fsit to stands, so encouraged to only do pelvic floor contractions when naturally moving from sit to stand. Physical Therapy Plan Frequency and Duration Frequency of Treatment 1x/Week Duration of treatment (weeks) 9 Plan of Care Start Date 05/15/22 Plan of Care End Date 07/17/22 Therapeutic Interventions Therapeutic Interventions Home Exercise Program,Manual Therapy,Neuromuscular Re- education,Self-Care/Home Management,Therapeutic Activities,Therapeutic Exercises Modalities Biofeedback,Electric Stimulation Next Visit Focus/Plan Next Note Type Treatment Note Next Visit Plan seMG vs exercise progression work on standing,
--- NOTE | 2022-05-29 08:56 | PT.OTN ---
Current Diagnoses Other obstructive and reflux uropathy (05/29/22) Benign prostatic hyperplasia with lower urinary tract symptoms (05/29/22) Retention of urine, unspecified (05/29/22) Physical Therapy Treatment Note PT-OP-A Visit Information Start: 03/30/22 11:56 Freq: Status: Active Protocol: Document 05/29/22 08:22 AMB (Rec: 05/29/22 08:56 AMB [id number]) Out-Patient Physical Therapy Visit Information Visit Information Visit Type Treatment Note Visit Start Time 08:15 Visit Stop Time 09:00 Total Visit Minutes 45 Visit Number 4 PT-OP-B Current Condition Start: 03/30/22 11:56 Freq: Status: Active Protocol: Document 04/03/22 08:25 AMB (Rec: 04/03/22 09:03 AMB [id number]) Current Condition History of Current Condition Onset Date November 2019/ surgery scheduled April Current Complaints upcoming prostate surgery History of Current Condition Pantera realized he couldn't initiate urination in November. Before that time, he was getting up to urinate 3-4x/ night before that. During the day was going every 3 hours. Darker yellow urine. Currently catheterized. Planning surgery, no leaking before being catheterized. Personal Factors Other Personal Factors That May Effect Afib, chronic anticoag, Therapy/Recovery Glaucoma PT-OP-C Subjective Start: 03/30/22 11:56 Freq: Status: Active Protocol: Document 05/29/22 08:22 AMB (Rec: 05/29/22 08:56 AMB [id number]) OP-PT Subjective Patient Comments Patient Comments Has been increasing the time between voids at night. Blood is continuing. PT-OP-I Pelvic Floor Start: 03/30/22 11:56 Freq: Status: Active Protocol: Document 04/03/22 08:15 AMB (Rec: 04/03/22 22:11 AMB [id number]) Pelvic Floor Assessment Urine Pelvic Floor Surgery Yes: scheduled Other Urinary Symptoms Currently no leaking, indwelling catheter due to inability to void Pelvic Clock Inter-Rectal Assessment With heavy verbal and physical cueing pt was able to contract rectally for 4 seconds, cued to avoid breath holding and co contraction. Contraction Ability Voluntary Contraction Weak Voluntary Relaxation Moderate Muscle Endurance (Seconds) 4 Number of Quick Contractions In 10 4 Seconds Comments Pelvic Floor Comments Pt denies numbness/tingling/ back pain hx PT-OP-Q Treatments Start: 03/30/22 11:56 Freq: Status: Active Protocol: Document 05/29/22 08:22 AMB (Rec: 05/29/22 08:56 AMB [id number]) Therapeutic Exercises Sitting Exercises rolling out Reps/Minutes 10 Standing Exercises mini lunges Reps/Minutes 10 Comments cues for form mini squats Reps/Minutes 10 Comments cues for form sit to stand Standing Exercise Name contract pelivc floor Comments cue breathing PT-OP-T Assessment and Plan Start: 03/30/22 11:56 Freq: Status: Active Protocol: Document 05/29/22 08:22 AMB (Rec: 05/29/22 08:56 AMB [id number]) Physical Therapy Assessment Goals Two Impairment Continence Short Term Goal (STG) Pantera will move from sit to stand without leaking urine. STG Duration 6 weeks Video Systems Engineer Goal (LTG) Pantera will stand for 30 minutes to cook a meal without leaking urine. LTG Duration 12 weeks One Impairment Pelvic floor strength Short Term Goal (STG) Pantera will be independent with a pelvic floor exercise program. STG Duration 6 weeks Video Systems Engineer Goal (LTG) Pantera will move from sit to stand while maintaining his pelvic floor contraction. LTG Duration 12 weeks Assessment Summary Assessment Pt continues to notice blood in his urine. Encouraged to discuss with urologist if it isn't improving. Was able to tolerate mini lunges and mini squats well wihtout pain. Reiterated importance of strengthening during natural times of increased pelvic floor strength re lifting, moving from stit to stand. Physical Therapy Plan Frequency and Duration Frequency of Treatment 1x/Week Duration of treatment (weeks) 9 Plan of Care Start Date 05/15/22 Plan of Care End Date 07/17/22 Next Visit Focus/Plan Next Note Type Treatment Note Next Visit Plan seMG vs exercise progression work on standing,
--- NOTE | 2022-06-05 14:51 | PT.OTN ---
Current Diagnoses Other obstructive and reflux uropathy (06/05/22) Benign prostatic hyperplasia with lower urinary tract symptoms (06/05/22) Retention of urine, unspecified (06/05/22) Physical Therapy Treatment Note PT-OP-A Visit Information Start: 03/30/22 11:56 Freq: Status: Active Protocol: Document 06/05/22 08:18 AMB (Rec: 06/05/22 09:03 AMB [id number]) Out-Patient Physical Therapy Visit Information Visit Information Visit Type Treatment Note Visit Start Time 08:15 Visit Stop Time 09:00 Total Visit Minutes 45 Visit Number 5 PT-OP-B Current Condition Start: 03/30/22 11:56 Freq: Status: Active Protocol: Document 04/03/22 08:25 AMB (Rec: 04/03/22 09:03 AMB [id number]) Current Condition History of Current Condition Onset Date November 2019/ surgery scheduled April Current Complaints upcoming prostate surgery History of Current Condition Pantera realized he couldn't initiate urination in November. Before that time, he was getting up to urinate 3-4x/ night before that. During the day was going every 3 hours. Darker yellow urine. Currently catheterized. Planning surgery, no leaking before being catheterized. Personal Factors Other Personal Factors That May Effect Afib, chronic anticoag, Therapy/Recovery Glaucoma PT-OP-C Subjective Start: 03/30/22 11:56 Freq: Status: Active Protocol: Document 06/05/22 08:18 AMB (Rec: 06/05/22 09:03 AMB [id number]) OP-PT Subjective Patient Comments Patient Comments Possibly one leak in the middle of the night but otherwise no leaks, but does feel like you need to be aware of the pelivc floor when you' ve been sitting for an extended period of time and then move to stand. PT-OP-I Pelvic Floor Start: 03/30/22 11:56 Freq: Status: Active Protocol: Document 04/03/22 08:15 AMB (Rec: 04/03/22 22:11 AMB [id number]) Pelvic Floor Assessment Urine Pelvic Floor Surgery Yes: scheduled Other Urinary Symptoms Currently no leaking, indwelling catheter due to inability to void Pelvic Clock Inter-Rectal Assessment With heavy verbal and physical cueing pt was able to contract rectally for 4 seconds, cued to avoid breath holding and co contraction. Contraction Ability Voluntary Contraction Weak Voluntary Relaxation Moderate Muscle Endurance (Seconds) 4 Number of Quick Contractions In 10 4 Seconds Comments Pelvic Floor Comments Pt denies numbness/tingling/ back pain hx PT-OP-Q Treatments Start: 03/30/22 11:56 Freq: Status: Active Protocol: Document 06/05/22 08:18 AMB (Rec: 06/05/22 09:03 AMB [id number]) Therapeutic Exercises Sitting Exercises rolling in Reps/Minutes 10 Standing Exercises mini lunges Reps/Minutes 10 Comments cues for form mini squats Reps/Minutes 10 Comments cues for form sit to stand Standing Exercise Name contract pelivc floor Comments cue breathing PT-OP-T Assessment and Plan Start: 03/30/22 11:56 Freq: Status: Active Protocol: Document 06/05/22 08:18 AMB (Rec: 06/05/22 09:03 AMB [id number]) Physical Therapy Assessment Goals Two Impairment Continence Short Term Goal (STG) Pantera will move from sit to stand without leaking urine. STG Duration MET Shear Assembler Goal (LTG) Pantera will stand for 30 minutes to cook a meal without leaking urine. LTG Duration MET One Impairment Pelvic floor strength Short Term Goal (STG) Pantera will be independent with a pelvic floor exercise program. STG Duration MET Shear Assembler Goal (LTG) Pantera will move from sit to stand while maintaining his pelvic floor contraction. LTG Duration 12 weeks Assessment Summary Assessment Pantera is doing well, thinking he has only leaked once in the last week. Encouraged to increase his activity level, including going on longer walks over the next two weeks and then we will review how he is doing and decide how to progress therapy fromthere. Pt to discuss continued bleeding with MD, he is on blood thinners, but has noticed that he can leak a drop of blood more than urine at times. Physical Therapy Plan Frequency and Duration Frequency of Treatment 1x/Week Duration of treatment (weeks) 9 Plan of Care Start Date 05/15/22 Plan of Care End Date 07/17/22 Therapeutic Interventions Therapeutic Interventions Home Exercise Program,Manual Therapy,Neuromuscular Re- education,Self-Care/Home Management,Therapeutic Activities,Therapeutic Exercises Modalities Biofeedback,Electric Stimulation Next Visit Focus/Plan Next Note Type Treatment Note Next Visit Plan progress into standing, pt noticed increased blood in urine with sit to stands so hold on that.
--- NOTE | 2022-06-20 08:02 | PT.OTN ---
Current Diagnoses Other obstructive and reflux uropathy (06/20/22) Benign prostatic hyperplasia with lower urinary tract symptoms (06/20/22) Retention of urine, unspecified (06/20/22) Physical Therapy Treatment Note PT-OP-A Visit Information Start: 03/30/22 11:56 Freq: Status: Active Protocol: Document 06/20/22 07:33 AMB (Rec: 06/20/22 08:01 AMB [id number]) Out-Patient Physical Therapy Visit Information Visit Information Visit Type Treatment Note Visit Start Time 07:30 Visit Stop Time 08:00 Total Visit Minutes 30 Visit Number 6 PT-OP-B Current Condition Start: 03/30/22 11:56 Freq: Status: Active Protocol: Document 04/03/22 08:25 AMB (Rec: 04/03/22 09:03 AMB [id number]) Current Condition History of Current Condition Onset Date November 2019/ surgery scheduled April Current Complaints upcoming prostate surgery History of Current Condition Pantera realized he couldn't initiate urination in November. Before that time, he was getting up to urinate 3-4x/ night before that. During the day was going every 3 hours. Darker yellow urine. Currently catheterized. Planning surgery, no leaking before being catheterized. Personal Factors Other Personal Factors That May Effect Afib, chronic anticoag, Therapy/Recovery Glaucoma PT-OP-C Subjective Start: 03/30/22 11:56 Freq: Status: Active Protocol: Document 06/20/22 07:33 AMB (Rec: 06/20/22 08:01 AMB [id number]) OP-PT Subjective Patient Comments Patient Comments Pantera reports continued hematuria, is getting up multiple times at night. PT-OP-I Pelvic Floor Start: 03/30/22 11:56 Freq: Status: Active Protocol: Document 04/03/22 08:15 AMB (Rec: 04/03/22 22:11 AMB [id number]) Pelvic Floor Assessment Urine Pelvic Floor Surgery Yes: scheduled Other Urinary Symptoms Currently no leaking, indwelling catheter due to inability to void Pelvic Clock Inter-Rectal Assessment With heavy verbal and physical cueing pt was able to contract rectally for 4 seconds, cued to avoid breath holding and co contraction. Contraction Ability Voluntary Contraction Weak Voluntary Relaxation Moderate Muscle Endurance (Seconds) 4 Number of Quick Contractions In 10 4 Seconds Comments Pelvic Floor Comments Pt denies numbness/tingling/ back pain hx PT-OP-Q Treatments Start: 03/30/22 11:56 Freq: Status: Active Protocol: Document 06/20/22 07:33 AMB (Rec: 06/20/22 08:01 AMB [id number]) Therapeutic Exercises Sitting Exercises rolling out Reps/Minutes 10 Standing Exercises mini lunges Reps/Minutes 10 Comments cues for form mini squats Reps/Minutes 10 Comments cues for form sit to stand Standing Exercise Name contract pelivc floor Comments cue breathing PT-OP-T Assessment and Plan Start: 03/30/22 11:56 Freq: Status: Active Protocol: Document 06/20/22 07:33 AMB (Rec: 06/20/22 08:01 AMB [id number]) Physical Therapy Assessment Goals Two Impairment Continence Short Term Goal (STG) Pantera will move from sit to stand without leaking urine. STG Duration MET Care Home Goal (LTG) Pantera will stand for 30 minutes to cook a meal without leaking urine. LTG Duration MET One Impairment Pelvic floor strength Short Term Goal (STG) Pantera will be independent with a pelvic floor exercise program. STG Duration MET Warehouse Record Clerk Goal (LTG) Pantera will move from sit to stand while maintaining his pelvic floor contraction. LTG Duration MET Assessment Summary Assessment Pantera is ready for discharge. Continues to have some hematuria, and feels like the most difficult thing to be continent of is the blood in his urine. Encouraged to continue with pelvic floor strengthening independently. Physical Therapy Plan Frequency and Duration Frequency of Treatment 1x/Week Duration of treatment (weeks) 9 Plan of Care Start Date 05/15/22 Plan of Care End Date 07/17/22 Therapeutic Interventions Therapeutic Interventions Home Exercise Program,Manual Therapy,Neuromuscular Re- education,Self-Care/Home Management,Therapeutic Activities,Therapeutic Exercises Modalities Biofeedback,Electric Stimulation Next Visit Focus/Plan Next Note Type Treatment Note Next Visit Plan progress into standing, pt noticed increased blood in urine with sit to stands so hold on that.
== END 2022-06-20 14:22 | disposition home or self-care (01) ==
LOC: PHYS 07:30
PROVIDERS: Family Provider Internal Medicine; PCP Internal Medicine; Referring Provider Specialist; Visit Provider Specialist
DX: R33.9 Retention of urine, unspecified (principal); N40.1 Benign prostatic hyperplasia with lower urinary tract symptoms; N13.8 Other obstructive and reflux uropathy
CPT/HCPCS: 97110; 97161; 97164

== ENCOUNTER → 2022-06-23 07:57 | Outpatient (CLI) | payer MEDICARE, SELFPAY ==
[2022-04-30 06:31] VITALS: BMI 31.1
[2022-06-23 09:13] LABS: Appearance Urine UA CLOUDY; Bilirubin Urine UA 2+ (NEGATIVE); Glucose Urine UA NEGATIVE (Negative); Ketones Urine UA NEGATIVE (NEGATIVE); Leukocyte Esterase Urine UA TRACE (NEGATIVE); Nitrite Urine UA NEGATIVE (Negative); Occult Blood Urine UA 3+ (Negative); Protein Urine UA 2+ (Negative); Specific Gravity Urine UA >=1.030 (1.000-1.035); pH Urine UA 5.5 (4.5-8.0)
[2022-06-23 09:15] LABS: Color Urine UA BROWN
[2022-06-23 09:24] LABS: Amorphous Sediment Urine 1+; Bacteria Urine Few (2-10); Culture Indicated Urine Specimen Cultured; Ictotest Urine Positive (Negative); RBC Urine 5-10/HPF (0-5/HPF); WBC Urine 5-10/HPF (0-5/HPF)
== END ==
PROVIDERS: Specialist; Family Provider Internal Medicine; PCP Internal Medicine; Referring Provider Internal Medicine; Visit Provider Internal Medicine
DX: C61 Malignant neoplasm of prostate (principal); N13.8 Other obstructive and reflux uropathy; N40.1 Benign prostatic hyperplasia with lower urinary tract symptoms; R33.9 Retention of urine, unspecified
CPT/HCPCS: 81001; 87086

== ENCOUNTER → 2022-08-21 08:09 | Outpatient (CLI) | payer MEDICARE, SELFPAY ==
[2022-04-30 06:31] VITALS: BMI 31.1
[2022-08-21 11:23] LABS: Prostate Specific Antigen 0.317 ng/mL (0.10-4.00)
== END ==
PROVIDERS: Family Provider Internal Medicine; PCP Internal Medicine; Referring Provider Specialist; Visit Provider Specialist
DX: C61 Malignant neoplasm of prostate (principal); N40.1 Benign prostatic hyperplasia with lower urinary tract symptoms; N13.8 Other obstructive and reflux uropathy
CPT/HCPCS: 36415; 84153

== ENCOUNTER → 2022-10-10 08:40 | Outpatient (CLI) | payer MEDICARE, SELFPAY ==
[2022-04-30 06:31] VITALS: BMI 31.1
[2022-10-10 09:37] LABS: Hematocrit 41.3 % (41-53); Hemoglobin 13.9 g/dL (13.5-17.5); Mean Corpuscular HGB Conc 33.6 % (30-36); Mean Corpuscular Hemoglobin 31.6 PG (26-34); Platelet Count 244 X10^3/uL (150-400); Red Cell Distribution Width 14.6 % (11.6-14.8); White Blood Cell Count 6.2 X10^3/uL (4.5-11.0)
[2022-10-10 09:59] LABS: Alanine Aminotransferase 22 IU/L (<50); Albumin Globulin Ratio 1.4 (1.0-2.8); Alkaline Phosphatase 109 U/L (38-126); Aspartate Aminotransferase 26 IU/L (17-59); BUN Creatinine Ratio 23.9 (6-22); Bilirubin Total 0.9 mg/dL (0.2-1.3); Blood Urea Nitrogen 22 mg/dL (9-20); Calcium 8.7 mg/dL (8.4-10.2); Carbon Dioxide 23 mmol/L (22-32); Chloride 108 mmol/L (98-107); Cholesterol 160 mg/dL (140-199); Estimated Glomerular Filt Rate > 60 mL/min (>60); Globulin 2.8 g/dL (1.7-4.1); Glucose 94 mg/dL (80-110); HDL Cholesterol 58 mg/dL (40-60); HEMOLYSIS 42 (0-50); LDL Cholesterol Calculated 82 mg/dL (<100); Potassium 5.2 mmol/L (3.4-5.1); Sodium 137 mmol/L (137-145); Total Protein 6.8 g/dL (6.3-8.2); Triglycerides 98 mg/dL (35-150)
[2022-10-10 11:00] LABS: Free T4, Direct Thyroxine 0.92 ng/dL (0.78-2.19)
== END ==
PROVIDERS: Family Provider Internal Medicine; PCP Internal Medicine; Referring Provider Internal Medicine; Visit Provider Internal Medicine
DX: C61 Malignant neoplasm of prostate (principal); E78.2 Mixed hyperlipidemia; I48.0 Paroxysmal atrial fibrillation; Z85.46 Personal history of malignant neoplasm of prostate
CPT/HCPCS: 36415; 80053; 80061; 84439; 84443; 85027

== ENCOUNTER → 2023-02-19 09:11 | Outpatient (CLI) | payer MEDICARE, SELFPAY ==
[2022-04-30 06:31] VITALS: BMI 31.1
[2023-02-19 11:08] LABS: Prostate Specific Antigen 0.329 ng/mL (0.10-4.00)
== END ==
PROVIDERS: Family Provider Internal Medicine; PCP Internal Medicine; Referring Provider Specialist; Visit Provider Specialist
DX: C61 Malignant neoplasm of prostate (principal); N13.8 Other obstructive and reflux uropathy; N40.1 Benign prostatic hyperplasia with lower urinary tract symptoms
CPT/HCPCS: 36415; 84153

== ENCOUNTER → 2023-07-25 10:34 | Outpatient (CLI) | payer MEDICARE, SELFPAY ==
[2022-04-30 06:31] VITALS: BMI 31.1
[2023-07-25 11:57] LABS: Prostate Specific Antigen 0.485 ng/mL (0.10-4.00)
== END ==
LOC: LAB 10:35
PROVIDERS: Family Provider Internal Medicine; PCP Internal Medicine; Referring Provider Specialist; Visit Provider Specialist
DX: C61 Malignant neoplasm of prostate (principal)
CPT/HCPCS: 36415; 84153

== ENCOUNTER → 2023-08-27 08:17 | Outpatient (CLI) | payer MEDICARE, SELFPAY ==
[2022-04-30 06:31] VITALS: BMI 31.1
== END ==
PROVIDERS: Family Provider Internal Medicine; PCP Internal Medicine; Visit Provider Specialist
DX: N40.1 Benign prostatic hyperplasia with lower urinary tract symptoms (principal); N13.8 Other obstructive and reflux uropathy
CPT/HCPCS: 51798; 81002; 87086; 99214

== ENCOUNTER → 2023-10-17 09:58 | Outpatient (CLI) | payer MEDICARE, SELFPAY ==
[2022-04-30 06:31] VITALS: BMI 31.1
[2023-10-17 11:01] LABS: Hematocrit 42.8 % (41-53); Hemoglobin 14.1 g/dL (13.5-17.5); Mean Corpuscular HGB Conc 32.9 % (30-36); Mean Corpuscular Hemoglobin 32.2 PG (26-34); Mean Corpuscular Volume 97.7 fL (80-100); Platelet Count 247 X10^3/uL (150-400); Red Blood Cell Count 4.38 X10^6/uL (4.5-5.9); Red Cell Distribution Width 15.2 % (11.6-14.8); White Blood Cell Count 7.1 X10^3/uL (4.5-11.0)
[2023-10-17 11:31] LABS: Alanine Aminotransferase 19 IU/L (<50); Albumin 4.3 g/dL (3.5-5.0); Albumin Globulin Ratio 1.5 (1.0-2.8); Alkaline Phosphatase 112 U/L (38-126); Aspartate Aminotransferase 32 IU/L (17-59); BUN Creatinine Ratio 21.3 (6-22); Bilirubin Total 1.2 mg/dL (0.2-1.3); Blood Urea Nitrogen 23 mg/dL (9-20); Calcium 8.8 mg/dL (8.4-10.2); Carbon Dioxide 26 mmol/L (22-32); Chloride 111 mmol/L (98-107); Cholesterol 157 mg/dL (140-199); Estimated Glomerular Filt Rate > 60 mL/min (>60); Globulin 2.9 g/dL (1.7-4.1); Glucose 100 mg/dL (80-110); HDL Cholesterol 64 mg/dL (40-60); HEMOLYSIS 21 (0-50); LDL Cholesterol Calculated 72 mg/dL (<100); Potassium 5.2 mmol/L (3.4-5.1); Sodium 141 mmol/L (137-145); Total Protein 7.2 g/dL (6.3-8.2); Triglycerides 106 mg/dL (35-150)
[2023-10-17 12:25] LABS: Free T4, Direct Thyroxine 0.88 ng/dL (0.78-2.19)
== END ==
PROVIDERS: Family Provider Internal Medicine; PCP Internal Medicine; Referring Provider Internal Medicine; Visit Provider Internal Medicine
DX: E03.9 Hypothyroidism, unspecified (principal); I48.0 Paroxysmal atrial fibrillation; E78.2 Mixed hyperlipidemia
CPT/HCPCS: 36415; 80053; 80061; 84439; 84443; 85027

== ENCOUNTER 2023-11-09 15:11 | Emergency (ER) | payer MEDICARE, SELFPAY ==
[2022-04-30 06:31] VITALS: BMI 31.1
--- NOTE | 2023-11-09 15:16 | DI.CT.S_ITS ---
PROCEDURE: CT FACIAL BONES WO CON INDICATIONS: GLF, FACIAL INJURY TECHNIQUE: Noncontrast 2.5 mm thick axial images acquired from the mandible through the frontal sinuses, with coronal and sagittal reformatting. For radiation dose reduction, the following was used: automated exposure control, adjustment of mA and/or kV according to patient size. COMPARISON: None. FINDINGS: Image quality: Streak artifact from dental amalgam limits evaluation of surrounding soft tissue Bones and teeth: Anterior nasal spine fracture. Nasal bones and septum are intact. Orbital huber are intact. Sinus huber show no fracture or deformity. Visualized portions of the mandible demonstrate no fractures or subluxation. Zygomatic arches are intact. Pterygoid plates are intact. Visualized portions of the skull base and auditory canals are intact. Sinuses: Paranasal sinuses are aerated, without fluid levels, mucosal thickening, or mucoceles. Mastoid air cells are aerated. Soft tissues: Evaluation of laceration of the upper lip due to adjacent streak metal artifact from dental amalgam. No definite radiodense foreign body identified. No edema, masses, or fluid collections. No enlarged lymph nodes. Vascular: Visualized vascular structures appear normal in the absence of contrast. Bony vascular foramina and canals are intact. IMPRESSION: Anterior nasal spine fracture. Limited evaluation of upper lip laceration due to adjacent dental amalgam streak artifact. No definite radiodense foreign body identified. Approved by: Ghazal Morris M.D.,Ph.D. on 11/09/2023 at 15:52
--- NOTE | 2023-11-09 15:16 | DI.CT.S_ITS ---
PROCEDURE: CT HEAD/BRAIN WO CON INDICATIONS: GLF, HEAD INJURY TECHNIQUE: Noncontrast 4.5 mm thick angled axial sections acquired from the foramen magnum to the vertex, with coronal and sagittal reformats. For radiation dose reduction, the following was used: automated exposure control, adjustment of mA and/or kV according to patient size. COMPARISON: None. FINDINGS: Image quality: Diagnostic. CSF spaces: Basal cisterns are patent. No extra-axial fluid collections. The ventricles are symmetric in size and shape. Brain: No intracranial bleeds or masses. There is cerebral volume loss for age, with resultant ventricular and sulcal prominence. There are periventricular and deep white matter chronic small vessel ischemic changes. There is intracranial internal carotid artery atherosclerosis. Skull and face: Calvarium and visualized facial bones appear intact, without suspicious lesions. Sinuses: Visualized sinuses and mastoids are clear. IMPRESSION: No acute intracranial pathology. Approved by: Ghazal Morris M.D.,Ph.D. on 11/09/2023 at 15:47
--- NOTE | 2023-11-09 15:17 | ED.FALL ---
HPI - Fall General Chief Complaint: Wound/Laceration Stated Complaint: inj/lac to lip/teeth Time Seen by Provider: 11/09/23 15:12 History of Present Illness HPI Narrative: 78 year old male with history of chronic urinary retention, TIA on Eliquis, HTN, HLD presents for facial injury after a ground level trip and fall. Patient was walking outside when he tripped on some loose rocks and fell forward, striking the front of his face against the ground. Denies loss of consciousness. He was not remember when his last tetanus shot was administered. Patient has obvious injury to upper lip. Teeth intact per patient. Related Data Home Medications Medication Instructions Recorded Confirmed latanoprost 0.005 % eye drops 1 drp OU BEDTIME ##0 05/21/17 10/17/23 (Xalatan) dorzolamide 22.3 mg-timolol 6.8 1 drp EYE-BOTH BID 09/27/21 10/17/23 mg/mL eye drops Previous Rx's Medication Instructions Recorded atorvastatin 40 mg tablet 40 mg PO DAILY #90 tabs 10/10/22 apixaban 5 mg tablet (Eliquis) 5 mg PO BID #180 tabs 10/15/23 amlodipine 5 mg tablet 5 mg PO DAILY #90 tabs 10/17/23 levothyroxine 100 mcg tablet 100 mcg PO DAILY #90 tabs 10/17/23 hydrocodone 5 mg-acetaminophen 325 1 tab PO Q8H PRN pain #8 tabs 11/09/23 mg tablet Allergies Allergy/AdvReac Type Severity Reaction Status Date / Time No Known Drug Allergies Allergy Verified 11/09/23 15:22 Patient History Medical History Actinic keratoses Essential hypertension Prostate cancer History of prostate cancer Urinary catheter in place (04/2022) TIA (transient ischemic attack) Balanitis Elevated PSA Acquired hypothyroidism Chronic anticoagulation Paroxysmal atrial fibrillation Cerebrovascular disease High prostate specific antigen (PSA) Obesity (BMI 30.0-34.9) Mixed hyperlipidemia Hearing loss Glaucoma Cataracts, bilateral Surgical History History of vitrectomy (~2016) History of cataract removal with insertion of prosthetic lens (~2017) Family History Father Stroke Mother History of heart disease Social History number of children: 2 household members: spouse Smoking Status: Never smoker alcohol intake: current Type(s) of exercise: other frequency: daily Smoking Status: Never smoker alcohol intake frequency: a few times a week Substance Use Type: does not use Exam Initial Vital Signs Initial Vital Signs: Vital Signs Temperature 98 F 11/09/23 15:19 Pulse Rate 92 H 11/09/23 15:19 Respiratory Rate 18 11/09/23 15:19 Blood Pressure 190/89 H 11/09/23 15:19 Pulse Oximetry 99 11/09/23 15:19 Oxygen Delivery Method Room Air 11/09/23 15:19 Const: Awake, alert, no acute distress HEENT: Head atraumatic, PERRL, EOMI, Nose normal, avulsion injury upper lip. Claudia border intact, no lacerations through border Skin: Warm, Dry, avulsion laceration of upper lip Neuro: AO x3, CN II-XII grossly intact, moves all extremities Course Orders Ordered: Discontinued Medications Bacitracin (Bacitracin Oint 0.9 Gm Pckt) 1 applic TOP NOW ONE Stop: 11/09/23 17:02 Last Admin: 11/09/23 17:04 Dose: 1 applic Documented By: JODY Diphtheria/Tetanus/Acell Pertussis (Tet,Diph,Pertuss(Acell),Vac/Pf 0.5 Ml Syringe) 0.5 ml IM .ONCE ONE Stop: 11/09/23 15:17 Last Admin: 11/09/23 15:27 Dose: 0.5 ml Documented By: JODY Lidocaine HCl (Lidocaine Viscous 2% 15 Ml Solution) 15 ml PO NOW ONE Stop: 11/09/23 15:17 Last Admin: 11/09/23 15:27 Dose: 15 ml Documented By: JODY Vital Signs Vital signs: Vital Signs - 8 hr 11/09/23 15:19 Temperature 98 F Pulse Rate 92 H Respiratory Rate 18 Blood Pressure 190/89 H Pulse Oximetry 99 Oxygen Delivery Method Room Air MDM - Fall Imaging Data CT scan - head: Radiologist's Impression: PROCEDURE: CT HEAD/BRAIN WO CON INDICATIONS: fall, hit head, lip lac, etoh TECHNIQUE: Noncontrast 4.5 mm thick angled axial sections acquired from the foramen magnum to the vertex, with coronal and sagittal reformats. For radiation dose reduction, the following was used: automated exposure control, adjustment of mA and/or kV according to patient size. COMPARISON: [facility], CT, CT HEAD/BRAIN WO CON, 11/09/2023, 15:29. FINDINGS: Image quality: Diagnostic. CSF spaces: Basal cisterns are patent. No extra-axial fluid collections. Ventricles are normal in size and shape. Brain: No midline shift. No intracranial masses or hemorrhage. Mendes-white matter interface is normal. Skull and face: Calvarium and visualized facial bones are intact, without suspicious lesions. Sinuses: Chronic left maxillary sinus disease IMPRESSION: Mild atrophy and white matter chronic ischemic change without acute hemorrhage or mass effect Chronic left maxillary mucosal sinus disease Approved by: Adrian Nino M.D. on 11/09/2023 at 22:40 CT - cervical spine: Radiologist's Impression: PROCEDURE: CT CERVICAL SPINE WO CON INDICATIONS: fall, hit head, lip lac, etoh TECHNIQUE: Noncontrast 3 mm thick sections acquired from the skull base to the T4 level. Sagittal and coronal reformats were then constructed. For radiation dose reduction, the following was used: automated exposure control, adjustment of mA and/or kV according to patient size. COMPARISON: None. FINDINGS: Image quality: Excellent. Bones: No fractures or dislocations. Visualized superior ribs are intact. Disc space narrowing at C4-5 and C5-5 6 and C6-7 with mild central stenosis. Soft tissues: Prevertebral soft tissues are normal in thickness. No paravertebral hematomas. No apical pneumothoraces. IMPRESSION: Midcervical degenerative disc disease and arthropathy without fracture or traumatic malalignment Approved by: Adrian Nino M.D. on 11/09/2023 at 22:50 PROCEDURE: CT FACIAL BONES WO CON INDICATIONS: fall, hit head, lip lac, etoh TECHNIQUE: Noncontrast 2.5 mm thick axial images acquired from the mandible through the frontal sinuses, with coronal and sagittal reformatting. For radiation dose reduction, the following was used: automated exposure control, adjustment of mA and/or kV according to patient size. COMPARISON: [facility], CT, CT FACIAL BONES WO CON, 11/09/2023, 15:29. FINDINGS: Maxillofacial Bones: The zygomaticomaxillary complex is intact. The pterygoid plates and skull base are unremarkable. No evidence of fracture or lytic lesion. Mandible: The mandible is intact without fracture. Unremarkable temporomandibular articulation. Dentition: Unremarkable mandibular and maxillary dentition. Soft tissues: No maxillofacial soft tissue swelling. No radiopaque foreign bodies. Orbits: The osseous orbits, globes and ocular muscles unremarkable. Sinuses and Mastoid: Atelectatic right maxillary sinus is completely opacified shows evidence of wall thickening IMPRESSION: No acute findings. No maxillofacial fracture or radiopaque foreign body. Chronic left maxillary sinus disease stable from prior Approved by: Adrian Nino M.D. on 11/09/2023 at 22:39 MDM Narrative Medical decision making narrative: Well-appearing patient with upper lip injury after ground level trip and fall. Patient does have an avulsion laceration of his inner upper lip with abrasion of his outer upper lip. There was no laceration that crosses the vermilion border. There is a small flap of skin on the underside of his upper lip. Topical lidocaine was applied and the skin tag was snipped. There was no residual bleeding. Patient counseled on wound care precautions. Short course of pain medication sent to pharmacy of choice. Discharge Plan Departure Patient Disposition: Home Clinical Impression: Laceration of lip Instructions: DI for Laceration Repair -- Simple Activity Restrictions/Additional Instructions: Rinse your mouth out with clean water every time you eat or drink for the next several days. You can apply antibiotic ointment to your top lip to keep it from scabbing, however this is not necessary. A short course of pain medication has been sent to your pharmacy. You may take this as needed if you feel uncomfortable. You have a chip in your anterior nasal bone, this should heal on its own. Avoid blowing your nose for the next several days Prescriptions: New hydrocodone-acetaminophen 5-325 mg tablet 1 tab PO Q8H PRN (Reason: pain) Qty: 8 0RF No Action latanoprost [Xalatan] 0.005 % drops 1 drp OU BEDTIME Qty: 0 Eliquis 5 mg tablet 5 mg PO BID Qty: 180 3RF levothyroxine 100 mcg tablet 100 mcg PO DAILY Qty: 90 0RF dorzolamide-timolol 22.3-6.8 mg/mL drops 1 drp EYE-BOTH BID Patient Comments: INSTILL 1 DROP IN BOTH EYES TWICE DAILY atorvastatin 40 mg tablet 40 mg PO DAILY Qty: 90 3RF amlodipine 5 mg tablet 5 mg PO DAILY Qty: 90 3RF Referrals: Ja Aldana MD [Primary Care Provider] - Stand Alone Forms: Patient Portal/API
[2023-11-09 15:19] VITALS: BP 190/89; PULSE 92; RESP 18; TEMP 36.6; O2SAT 99
[2023-11-09] MEDS: LIDOCAINE VISCOUS 2% 15 ML SOLUTION PO (15:27)
[2023-11-09] MEDS: TET,DIPH,PERTUSS(ACELL),VAC/PF 0.5 ML SYRINGE IM (15:27)
[2023-11-09] MEDS: BACITRACIN OINT 0.9 GM PCKT 1 APPLIC TOP (17:04)
[2023-11-09 17:09] VITALS: BP 184/86; PULSE 90; RESP 18; O2SAT 100
== END 2023-11-09 17:08 | disposition home or self-care (01) ==
PROVIDERS: Emergency Provider Emergency Medicine; Family Provider Internal Medicine; PCP Internal Medicine
DX: S01.511A Laceration without foreign body of lip, initial encounter (principal); W01.0XXA Fall on same level from slipping, tripping and stumbling without subsequent striking against object, initial encounter; Z79.01 Long term (current) use of anticoagulants; Z86.73 Personal history of transient ischemic attack (TIA), and cerebral infarction without residual deficits; Z23 Encounter for immunization
CPT/HCPCS: 70450; 70486; 99284; 90715

== ENCOUNTER 2023-11-09 22:24 | Emergency (ER) | payer MEDICARE, SELFPAY ==
[2022-04-30 06:31] VITALS: BMI 31.1
[2023-11-09 22:25] VITALS: BP 186/86; PULSE 82; RESP 17; TEMP 36.2; O2SAT 98; BMI 33.1
--- NOTE | 2023-11-09 22:35 | ED_ITS ---
HPI - Fall General Chief Complaint: Fall Stated Complaint: FELL/hit lac lip/here earlier for lip Time Seen by Provider: 11/09/23 22:35 Source: patient, RN notes reviewed and old records reviewed Mode of arrival: Ambulatory Limitations: no limitations History of Present Illness HPI Narrative: 78-year-old male history of chronic urinary retention, TIA on Eliquis, hypertension, dyslipidemia presented earlier today for facial injury after ground level trip and fall. Patient has a laceration on his inner lip but did not require repair did have head CT and facial bones showed anterior nasal spine fracture. Patient states that he went home today was walking upper down some stairs in an area with a lot of rocks at a house that they rented for a big family reunion. He states he did take 1 pain pill earlier he had had some alcohol was not really paying attention tripped and fell striking his lip and face. He states no loss of consciousness he denies any pain elsewhere besides his lip. He states his teeth seemed to be in place. He denies any neck pain. He denies any chest pain or shortness of breath no abdominal back or flank pain. No nausea or vomiting no other GI or urinary symptoms. His tetanus was updated earlier today. No reported drug allergies. Related Data Home Medications Medication Instructions Recorded Confirmed latanoprost 0.005 % eye drops 1 drp OU BEDTIME ##0 05/21/17 10/17/23 (Xalatan) dorzolamide 22.3 mg-timolol 6.8 1 drp EYE-BOTH BID 09/27/21 10/17/23 mg/mL eye drops Previous Rx's Medication Instructions Recorded atorvastatin 40 mg tablet 40 mg PO DAILY #90 tabs 10/10/22 apixaban 5 mg tablet (Eliquis) 5 mg PO BID #180 tabs 10/15/23 amlodipine 5 mg tablet 5 mg PO DAILY #90 tabs 10/17/23 levothyroxine 100 mcg tablet 100 mcg PO DAILY #90 tabs 10/17/23 hydrocodone 5 mg-acetaminophen 325 1 tab PO Q8H PRN pain #8 tabs 11/09/23 mg tablet Allergies Allergy/AdvReac Type Severity Reaction Status Date / Time No Known Drug Allergies Allergy Verified 11/09/23 15:22 Review of Systems Review of Systems ROS Unobtainable: All systems reviewed & are unremarkable except as noted in HPI and below Patient History Medical History Actinic keratoses Essential hypertension Prostate cancer History of prostate cancer Urinary catheter in place (04/2022) TIA (transient ischemic attack) Balanitis Elevated PSA Acquired hypothyroidism Chronic anticoagulation Paroxysmal atrial fibrillation Cerebrovascular disease High prostate specific antigen (PSA) Obesity (BMI 30.0-34.9) Mixed hyperlipidemia Hearing loss Glaucoma Cataracts, bilateral Surgical History History of vitrectomy (~2017) History of cataract removal with insertion of prosthetic lens (~2018) Family History Father Stroke Mother History of heart disease Social History number of children: 2 household members: spouse Smoking Status: Never smoker alcohol intake: current Type(s) of exercise: other frequency: daily Smoking Status: Never smoker alcohol intake frequency: a few times a week Substance Use Type: does not use Exam Narrative Exam Narrative: GEN: Patient appears in mild distress. HEAD: No evidence of trauma, no raccoon/Bryan sign. NECK: Nontender, painless range of motion, trachea midline Positive Nexus criteria, no midline line tenderness, distracting injury, altered mental status, neuro deficit, positive for recent EtOH. EYES: PERRLA, EOMI ENT: External inspection normal except for laceration of the left upper lip running get an oblique angle from the lip towards the nose approximately cm and a half slightly irregular is not through and through does end the vermilion border, is gapped, trachea is midline, TM's are normal no hemotypanum, Nares are clear, no septal hematoma, no dental or oral injury, airway is normal and with normal occlusion, No bony tenderness, no obvious dental injury patient's teeth appear to be in place. No movement of the teeth. RESP: Chest is nontender and has symmetric movement, no ecchymosis, breath saeid nds are normal no crackles, wheezes or rales CVS: Heart sounds are normal, no murmur noted, No JVD. ABG/GI: Nontender, soft, normal bowel sounds, no distention, no organomegaly, pelvic rock is negative NEURO: Oriented AOx3, neuro is grossly intact, sensation and motor is normal all 4 extremities moving, cranial nerves II through XII are intact, GCS is 15 PSYCH: Normal mood and affect SKIN: Patient has a abrasion on anterior berrios, this appears scabbed, warm and dry, no crepitus and without decubitus BACK: No CVA tenderness, no vertebral tenderness, no step-off's, no crepitus EXT: Atraumatic, hips are nontender, no pedal edema, normal color and temperature, normal range of motion of extremities with normal tendon exam, 2+ pulses in all four extremities Initial Vital Signs Initial Vital Signs: Vital Signs Temperature 97.2 F L 11/09/23 22:25 Pulse Rate 82 11/09/23 22:25 Respiratory Rate 17 11/09/23 22:25 Blood Pressure 186/86 H 11/09/23 22:25 Pulse Oximetry 98 11/09/23 22:25 Oxygen Delivery Method Room Air 11/09/23 22:25 Procedures Laceration Repair Laceration 1: Site: lip (upper left) Side (If applicable): left Size (cm): 2.3 Description: irregular and clean Depth: simple, single layer Local Anesthetic: lidocaine 2% Amount of anesthesia used (mL): 4 Pre-repair: wound explored, irrigated extensively and deep structures intact Skin layer closed with: vicryl Skin layer suture size: 5-0 Number of sutures: 6 Technique: simple, interrupted Scores [place] CT Head Rule Patient on blood thinners: Yes Age greater or equal to 65 years: Yes GCS Franklin coma scale eye opening: Spontaneous Ester coma scale verbal response: Orientated Ester coma scale motor response: Obey commands Franklin coma scale total score: 15 Nexus Score for C-Spine Focal Neurologic deficit present: No Midline spinal tenderness present: No Altered level of conciousness present: No Intoxication present: Yes Distracting Injury Present: No Nexus Criteria for C-spine: 1 Course Orders Ordered: ED Orders 11/09/23 22:41 CT cervical spine wo con Stat CT facial bones wo con Stat CT head/brain wo con Stat Discontinued Medications Lidocaine/Prilocaine (Lidocaine/Prilocaine 5 Gm) 5 gm TOP NOW ONE Stop: 11/09/23 22:42 Last Admin: 11/09/23 22:51 Dose: 5 gm Documented By: [facility]NG Vital Signs Vital signs: Vital Signs - 8 hr 11/09/23 22:25 11/09/23 23:48 11/09/23 23:48 Temperature 97.2 F L Pulse Rate 82 79 Respiratory Rate 17 Blood Pressure 186/86 H 136/70 Pulse Oximetry 98 99 Oxygen Delivery Method Room Air 11/10/23 00:00 11/10/23 00:00 11/10/23 00:03 Temperature Pulse Rate 72 78 Respiratory Rate Blood Pressure 136/73 Pulse Oximetry 98 98 Oxygen Delivery Method MDM - Fall MDM Narrative Medical decision making narrative: 78-year-old male on Eliquis who had a trip and fall earlier today, was seen did not require repair but did have a small nasal bone fracture. Patient returns after having recurrent episode a trip and fall. He notes he took 1 of the pain tablets he was prescribed and had alcohol this afternoon which he states resulted in him walking through an unfamiliar location on some stairs and fell hitting his face. Patient does have a laceration of his upper lip that appears to require repair. It is not through and through but does go to the edge of the vermilion border. Because of patient's anticoagulation, recent ETOH earlier today and prior injury head CT facial bone and C-spine were obtained. Head CT shows mild atrophy and chronic white matter ischemic change without acute hemorrhage or mass effect, chronic left maxillary mucous sinus disease. Facial bone CTs no acute findings no radiopaque foreign body, chronic left maxillary sinus disease stable from prior. CT cervical spine mid cervical degenerative disc disease and arthropathy without fracture or traumatic malalignment. Patient tolerated repair without issue. Stable ambulating safely discharged home with his family. Discharge Plan Departure Patient Disposition: Home Clinical Impression: Laceration of lip, Fall Instructions: DI for Laceration Repair -- Simple Activity Restrictions/Additional Instructions: You have absorbable sutures in your upper lip, they should absorb on their own and do not require removal. Recommend a soft diet for the 1st several days, avoid very hot or spicy foods until the laceration of your lip and inner lips have healed. Do not drink alcohol and take your pain medication. Wound Care: Keep wound(s) clean and dry. Wash daily with soap and water only. Do not use over the counter products (alcohol or peroxide)on the wounds unless instructed by a physician. If wound condition worsens (increased/expanding redness, developing fluid blisters, or worsening pain), either contact your doctor for an urgent re- assessment , or return to the Emergency Department. Return to the Emergency Department for any new or worsening symptoms. Return if fever greater than 100.4 Fahrenheit, increased swelling, increasing pain or worsening symptoms such as increased discharge or spreading redness. Return for severe headaches, new changes in mental status, new chest pain or shortness of breath, nausea vomiting, neck or back pain, any difficulty with movement or ambulation or other new or concerning changes. Prescriptions: No Action latanoprost [Xalatan] 0.005 % drops 1 drp OU BEDTIME Qty: 0 Eliquis 5 mg tablet 5 mg PO BID Qty: 180 3RF levothyroxine 100 mcg tablet 100 mcg PO DAILY Qty: 90 0RF dorzolamide-timolol 22.3-6.8 mg/mL drops 1 drp EYE-BOTH BID Patient Comments: INSTILL 1 DROP IN BOTH EYES TWICE DAILY atorvastatin 40 mg tablet 40 mg PO DAILY Qty: 90 3RF amlodipine 5 mg tablet 5 mg PO DAILY Qty: 90 3RF hydrocodone-acetaminophen 5-325 mg tablet 1 tab PO Q8H PRN (Reason: pain) Qty: 8 0RF Referrals: Ja Aldana MD [Primary Care Provider] - Stand Alone Forms: Patient Portal/API
--- NOTE | 2023-11-09 22:41 | DI.CT.S_ITS ---
PROCEDURE: CT HEAD/BRAIN WO CON INDICATIONS: fall, hit head, lip lac, etoh TECHNIQUE: Noncontrast 4.5 mm thick angled axial sections acquired from the foramen magnum to the vertex, with coronal and sagittal reformats. For radiation dose reduction, the following was used: automated exposure control, adjustment of mA and/or kV according to patient size. COMPARISON: [facility], CT, CT HEAD/BRAIN WO CON, 11/09/2023, 15:29. FINDINGS: Image quality: Diagnostic. CSF spaces: Basal cisterns are patent. No extra-axial fluid collections. Ventricles are normal in size and shape. Brain: No midline shift. No intracranial masses or hemorrhage. Mendes-white matter interface is normal. Skull and face: Calvarium and visualized facial bones are intact, without suspicious lesions. Sinuses: Chronic left maxillary sinus disease IMPRESSION: Mild atrophy and white matter chronic ischemic change without acute hemorrhage or mass effect Chronic left maxillary mucosal sinus disease Approved by: Adrian Nino M.D. on 11/09/2023 at 22:40
--- NOTE | 2023-11-09 22:41 | DI.CT.S_ITS ---
PROCEDURE: CT FACIAL BONES WO CON INDICATIONS: fall, hit head, lip lac, etoh TECHNIQUE: Noncontrast 2.5 mm thick axial images acquired from the mandible through the frontal sinuses, with coronal and sagittal reformatting. For radiation dose reduction, the following was used: automated exposure control, adjustment of mA and/or kV according to patient size. COMPARISON: [facility], CT, CT FACIAL BONES WO CON, 11/09/2023, 15:29. FINDINGS: Maxillofacial Bones: The zygomaticomaxillary complex is intact. The pterygoid plates and skull base are unremarkable. No evidence of fracture or lytic lesion. Mandible: The mandible is intact without fracture. Unremarkable temporomandibular articulation. Dentition: Unremarkable mandibular and maxillary dentition. Soft tissues: No maxillofacial soft tissue swelling. No radiopaque foreign bodies. Orbits: The osseous orbits, globes and ocular muscles unremarkable. Sinuses and Mastoid: Atelectatic right maxillary sinus is completely opacified shows evidence of wall thickening IMPRESSION: No acute findings. No maxillofacial fracture or radiopaque foreign body. Chronic left maxillary sinus disease stable from prior Approved by: Adrian Nino M.D. on 11/09/2023 at 22:39
--- NOTE | 2023-11-09 22:41 | DI.CT.S_ITS ---
PROCEDURE: CT CERVICAL SPINE WO CON INDICATIONS: fall, hit head, lip lac, etoh TECHNIQUE: Noncontrast 3 mm thick sections acquired from the skull base to the T4 level. Sagittal and coronal reformats were then constructed. For radiation dose reduction, the following was used: automated exposure control, adjustment of mA and/or kV according to patient size. COMPARISON: None. FINDINGS: Image quality: Excellent. Bones: No fractures or dislocations. Visualized superior ribs are intact. Disc space narrowing at C4-5 and C5-5 6 and C6-7 with mild central stenosis. Soft tissues: Prevertebral soft tissues are normal in thickness. No paravertebral hematomas. No apical pneumothoraces. IMPRESSION: Midcervical degenerative disc disease and arthropathy without fracture or traumatic malalignment Approved by: Adrian Nino M.D. on 11/09/2023 at 22:50
[2023-11-09] MEDS: LIDOCAINE/PRILOCAINE 5 GM TOP (22:51)
[2023-11-09 23:48] VITALS: BP 136/70; PULSE 79; O2SAT 99
[2023-11-10] VITALS: BP 136/73; PULSE 72; O2SAT 98
[2023-11-10 00:03] VITALS: PULSE 78; O2SAT 98
== END 2023-11-10 00:12 | disposition home or self-care (01) ==
PROVIDERS: Emergency Provider Emergency Medicine; Family Provider Internal Medicine; PCP Internal Medicine
DX: S02.2XXA Fracture of nasal bones, initial encounter for closed fracture (principal); S01.511A Laceration without foreign body of lip, initial encounter; W01.0XXA Fall on same level from slipping, tripping and stumbling without subsequent striking against object, initial encounter; Z79.01 Long term (current) use of anticoagulants; Z86.73 Personal history of transient ischemic attack (TIA), and cerebral infarction without residual deficits; Z23 Encounter for immunization
CPT/HCPCS: 12011; 70450; 70486; 72125; 90471; 99282; 99283; 99284; 90715

== ENCOUNTER → 2023-11-27 10:53 | Outpatient (CLI) | payer MEDICARE, SELFPAY ==
[2022-04-30 06:31] VITALS: BMI 31.1
--- NOTE | 2023-11-27 10:55 | DI.RAD.S_ITS ---
PROCEDURE: XR PELVIS 1-2V INDICATIONS: left SI joint pain TECHNIQUE: 2 view(s) of the pelvis acquired. COMPARISON: None. FINDINGS: Bones: No fractures or dislocations. Suboptimal oblique patient positioning due to pain limits evaluation of the left SI joint. Moderate bilateral femoroacetabular joint space narrowing and juxta-articular osteophytosis. Right SI joint and pubic symphysis demonstrate mild joint space narrowing. Degenerative changes of the lower lumbar spine. No suspicious bony lesions. Soft tissues: Visualized bowel gas pattern is normal. No suspicious soft tissue calcifications. IMPRESSION: 1. Suboptimal oblique patient positioning due to pain limits evaluation of the left SI joint. If clinical symptoms persist, consider cross-sectional imaging for further evaluation. 2. No visualized acute osseous abnormality. 3. Moderate bilateral hip osteoarthritis, symmetric. Dictated by: Trudy Urbina M.D. on 11/27/2023 at 14:42 Approved by: Trudy Urbina M.D. on 11/27/2023 at 14:44
== END ==
PROVIDERS: Family Provider Internal Medicine; PCP Internal Medicine; Referring Provider Internal Medicine; Visit Provider Internal Medicine
DX: M25.9 Joint disorder, unspecified (principal); M16.0 Bilateral primary osteoarthritis of hip
CPT/HCPCS: 72170

== ENCOUNTER → 2024-08-14 10:47 | Outpatient (CLI) | payer MEDICARE, SELFPAY ==
[2022-04-30 06:31] VITALS: BMI 31.1
[2024-08-14 16:52] LABS: Prostate Specific Antigen 0.307 ng/mL (0.10-4.00)
== END ==
PROVIDERS: Family Provider Internal Medicine; PCP Internal Medicine; Referring Provider Urology; Visit Provider Urology
DX: C61 Malignant neoplasm of prostate (principal); N40.1 Benign prostatic hyperplasia with lower urinary tract symptoms; N13.8 Other obstructive and reflux uropathy; R33.9 Retention of urine, unspecified
CPT/HCPCS: 36415; 84153

== ENCOUNTER → 2024-09-01 13:23 | Outpatient (CLI) | payer MEDICARE, SELFPAY ==
[2022-04-30 06:31] VITALS: BMI 31.1
== END ==
PROVIDERS: Family Provider Internal Medicine; PCP Internal Medicine; Visit Provider Urology
DX: N13.8 Other obstructive and reflux uropathy (principal); N40.1 Benign prostatic hyperplasia with lower urinary tract symptoms
CPT/HCPCS: 87086

== ENCOUNTER → 2024-12-14 11:55 | Outpatient (CLI) | payer MEDICARE, SELFPAY ==
[2022-04-30 06:31] VITALS: BMI 31.1
[2024-12-14 12:23] LABS: Hematocrit 39.7 % (41-53); Hemoglobin 13.2 g/dL (13.5-17.5); Mean Corpuscular HGB Conc 33.3 % (30-36); Mean Corpuscular Hemoglobin 32.5 PG (26-34); Mean Corpuscular Volume 97.7 fL (80-100); Platelet Count 250 X10^3/uL (150-400)
[2024-12-14 12:45] LABS: Alanine Aminotransferase 18 IU/L (<50); Albumin 4.3 g/dL (3.5-5.0); Albumin Globulin Ratio 1.6 (1.0-2.8); Alkaline Phosphatase 127 U/L (38-126); Blood Urea Nitrogen 23 mg/dL (9-20); Calcium 9.0 mg/dL (8.4-10.2); Carbon Dioxide 23 mmol/L (22-32); Chloride 107 mmol/L (98-107); Cholesterol 148 mg/dL (140-199); Estimated Glomerular Filt Rate > 60 mL/min (>60); Globulin 2.7 g/dL (1.7-4.1); Glucose 99 mg/dL (70-99); HDL Cholesterol 58 mg/dL (40-60); HEMOLYSIS < 15 (0-50); Sodium 136 mmol/L (137-145); Total Protein 7.0 g/dL (6.3-8.2); Triglycerides 95 mg/dL (35-150)
[2024-12-14 12:47] LABS: Potassium 5.5 mmol/L (3.4-5.1)
[2024-12-14 13:15] LABS: Prostate Specific Antigen 0.456 ng/mL (0.10-4.00)
[2024-12-14 13:16] LABS: TSH w/ Reflex to FT4 2.56 uIU/mL (0.47-4.68)
== END ==
PROVIDERS: PCP Internal Medicine; Referring Provider Internal Medicine; Visit Provider Internal Medicine
DX: E03.9 Hypothyroidism, unspecified (principal); N40.1 Benign prostatic hyperplasia with lower urinary tract symptoms; N13.8 Other obstructive and reflux uropathy; I48.0 Paroxysmal atrial fibrillation
CPT/HCPCS: 36415; 80053; 80061; 84153; 84443; 85027

== ENCOUNTER → 2024-12-15 13:42 | Outpatient (CLI) | payer MEDICARE, SELFPAY ==
[2022-04-30 06:31] VITALS: BMI 31.1
== END ==
PROVIDERS: PCP Internal Medicine; Referring Provider Internal Medicine; Visit Provider Internal Medicine
DX: Z12.11 Encounter for screening for malignant neoplasm of colon (principal)
CPT/HCPCS: 82274